=== PATIENT | female | born 1940 | race Caucasian/White ===

== ENCOUNTER 2016-10-09 15:19 | Inpatient (IN) | payer OTHER, MEDICARE ==
[~2016-10-09] VITALS: Ht 154.9 cm; Wt 110.7 kg
[~2016-10-09 15:19] MED LIST: ALBUTEROL 3 ML3 ML INH; ASPIR 8181 MG PO; ATORVASTATIN CA40 MG PO; AUGMENTIN 875 M1 TAB PO; CEFUROXIME AXE250 MG PO; CIPRO 500MG (E500 MG PO; CLARITIN10 MG PO; COUMADIN 2.5 M2.5 MG PO; COUMADIN 3 MG TA3 MG PO; DILAUDID2 MG PO; FLAG500 PO; FLOVENT0.11 MG/Ac INH; FUROSEMIDE20 MG PO; KLOR-CON M2020 MEQ PO; LEVOTHYROXIN0.088 M1 PO; LOVENOX 4040 MG/0.4 SC; METOPROLOL SUCC50 MG PO; MONTELUKAST SOD10 MG PO; PANTOPRAZOLE SO40 MG PO; PREDNISONE 10MG10 M1 PO; PREDNISONE 5 MG5 MG PO; PREDNISONE5 MG PO; SPIRIVA1 PUF INH; ULTRAM(MONOGRAP50 MG PO; VALSARTAN160 MG PO; VICODIN7.5-300 PO; WARFARIN SODIUM2 MG PO
--- NOTE | 2016-10-09 15:24 | NUR ---
PT STATES SHE HAS HAD INCREASES SOB FOR THE PAST FEW DAYS WORSE TODAY. PT DENIES COUGH 02 SAT 88% IN TRIAGE. PT TAKE BACK TO ROOM.
--- NOTE | 2016-10-09 15:30 | NUR ---
RECIEVED TO ROOM 9
--- NOTE | 2016-10-09 15:37 | ED DYSPNEA/ASTHMA COMPLAINT ---
History of Present Illness General Chief Complaint: Dyspnea (COPD, CHF, Other) Stated Complaint: SOB Source: patient, family, old records Exam Limitations: no limitations Vital Signs & Intake/Output Vital Signs & Intake/Output Vital Signs Date Time Temp Pulse Resp B/P B/P Pulse O2 O2 Flow FiO2 Mean Ox Delivery Rate 10/12 1211 93 Nasal 1.5L Cannula 10/12 1011 60 110/70 10/12 1011 60 110/70 10/12 0800 Nasal 2.0L Cannula 10/12 0753 60 14 110/70 92 Nasal 2.0L Cannula 10/12 0014 97.9 61 18 118/70 93 Nasal Cannula 10/12 0000 Nasal 2.0L Cannula 10/11 1945 92 Nasal 2.0L Cannula 10/11 1643 98.1 67 18 126/70 94 10/11 1600 95 Nasal 2.0L Cannula ED Intake and Output 10/12 0000 10/11 1200 Intake Total 1000 Output Total 2000 Balance -1000 Intake, Oral 1000 Number 0 Bowel Movements Output, Urine 1999 Allergies Coded Allergies: codeine (Severe, RESPIRATORY DISTRESS, HALLUCINATIONS 07/14/15) oxycodone (SHORTNESS OF BREATH 07/14/15) Iodinated Contrast- Oral and IV Dye (Iodinated Contrast Media - IV Dye) (NAUSEA, DIZZINESS 07/14/15) morphine (VOMITING 07/14/15) Uncoded Allergies: FRESH FROZEN PLASMA (UNKNOWN 07/14/15) Reconcile Medications Aspirin (Aspirin*) 81 MG TAB.CHEW 1 TAB PO DAILY CAD (Reported) Atorvastatin Calcium 40 MG TABLET 1 TAB PO DAILY HIGH CHOLESTEROL (Reported) Fluticasone Propionate (Flovent Hfa) 110 MCG/ACTUATION AER.W.ADAP 2 PUF INH BID COPD (Reported) Furosemide 20 MG TABLET 1 TAB PO DAILY CHF (Reported) Levothyroxine Sodium 88 MCG TABLET 1 TAB PO DAILY HYPOTHRYOIDISM (Reported) Metoprolol Succinate 50 MG TAB.ER.24H 1 TAB PO DAILY CAD (Reported) Montelukast Sodium (Singulair) 10 MG TABLET 1 TAB PO DAILY DAILY (Reported) Valsartan 160 MG TABLET 1 TAB PO DAILY HTN (Reported) Warfarin Sodium (Coumadin) 4 MG TABLET 1 TAB PO QMON BLOOD THINNER (Reported) Warfarin Sodium (Coumadin) 4 MG TABLET 1 TAB PO QFRI BLOOD THINNER (Reported) Warfarin Sodium (Coumadin) 3 MG TABLET 1 TAB PO SUN TUES THUR BLOOD THINNER ( Reported) Warfarin Sodium (Coumadin) 3 MG TABLET 1 TAB PO QSAT BLOOD THINNER (Reported) Warfarin Sodium 3 MG TABLET 1 TAB PO QWED BLOOD THINNER (Reported) Triage Note: PT STATES SHE HAS HAD INCREASES SOB FOR THE PAST FEW DAYS WORSE TODAY. PT DENIES COUGH 02 SAT 88% IN TRIAGE. PT TAKE BACK TO ROOM. Triage Nurses Notes Reviewed? yes Onset: Gradual Duration: day(s): (FEW) Timing: recent history Severity: mild, moderate Activities at Onset: activity Associated Symptoms: leg edema, dyspnea HPI: 75 year old female presents with progessive shortness of breath over the last 3 days with cough productive of clear sputum. Denies fever, chills or chest pain. States that she is having a hard time when doing adl's because she becomes short of breath. Uses inhalers at home for COPD but no nebulizaer treatments. Reports lower extremity edema. History of mitral valve repair after rupture many years ago on coumadin. She denies recent hospitalization or sick contacts. Past History Travel History Traveled to [place] past 21 day No Medical History Any Pertinent Medical History? 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 No Review of Systems Review of Systems Constitutional: Reports: malaise. Denies: chills, fever. EENTM: Denies: blurred vision, double vision. Respiratory: Reports: cough, short of breath, sputum production. Cardiovascular: Reports: peripheral edema. Denies: chest pain, palpitations, syncope. GI: Denies: abdominal pain, nausea, vomiting. Genitourinary: Denies: discharge, dysuria, frequency, hematuria. Musculoskeletal: Reports: no symptoms. Skin: Reports: no symptoms. Neurological/Psychological: Reports: no symptoms. Hematologic/Endocrine: Denies: bruising, bleeding, polyuria, polydipsia. Immunologic/Allergic: Denies: splenectomy. All Other Systems: Reviewed and Negative Physical Exam Physical Exam General Appearance: well developed/nourished, alert, awake, anxious, mild distress, moderate distress Head: normal appearance Eyes: Bilateral: normal appearance, PERRL, EOMI. Ears, Nose, Throat: normal pharynx, normal ENT inspection, hearing grossly normal Neck: normal inspection, supple, full range of motion Respiratory: decreased breath sounds, accessory muscle use, wheezing, respiratory distress Cardiovascular: regular rate/rhythm Peripheral Pulses: 2+ radial (R), 2+ radial (L) Gastrointestinal: soft, non-tender, obese Extremities: swelling (2+ BILATERAL) Neurologic/Psych: no motor/sensory deficits, awake, alert, oriented x 3 Skin: intact, normal color, warm/dry Core Measures ACS in differential dx? Yes ASA ordered for poss ACS? ON COUMADIN Severe Sepsis Present: No Septic Shock Present: No Progress Differential Diagnosis: AMI, CHF, COPD, pulmonary embolism Plan of Care: Orders Procedure Date/time Status PROTHROMBIN TIME 10/13 06 Active CBC WITHOUT DIFFERENTIAL 10/12 06 Complete BASIC ELECTROLYTES PLUS BUN&CR 10/12 0600 Complete House Staff 10/12 UNK Active Nursing Misc 10/12 UNK Active MAGNESIUM 10/11 0647 Complete OXYGEN 10/11 UNK Complete OXYGEN DAILY CHARGE 10/11 UNK Complete Lab Add-on Test 10/11 UNK Active GLYCOSYLATED HGB 10/10 0625 Complete OXYGEN SETUP CHG 10/10 UNK Complete INCENTIVE SPIROMETRY TRX CHG 10/10 UNK Complete AEROSOL CHG 10/10 UNK Complete OXYGEN 10/10 UNK Complete OXYGEN TRANSPORT 10/10 UNK Complete Current Medications Sig/Slade Start time Last Medication Dose Stop Time Status Admin Furosemide 40 MG DAILY 10/12 1000 AC (Lasix) Warfarin Sodium 1 MG COUMADIN 1700 ONE 10/11 1700 CAN (Coumadin) 10/11 1701 Loratadine 10 MG DAILY 10/11 1334 AC 10/12 (Claritin) 1011 Tiotropium [place] 1 PUF DAILY 10/11 1333 AC 10/12 (Spiriva) 1012 Atorvastatin Calcium 40 MG AT BEDTIME 10/10 2200 AC 10/11 (Lipitor) 210 Montelukast Sodium 10 MG AT BEDTIME 10/10 220 AC 10/11 (Singulair) 210 Docusate Sodium 100 MG DAILY NEEDED PRN 10/10 2030 AC 10/10 (Colace) 2247 Bisacodyl 5 MG DAILY 10/10 1824 AC 10/11 (Dulcolax) 1008 Aspirin 81 MG DAILY 10/10 1000 AC 10/12 (Aspirin) 1011 Losartan Potassium 50 MG DAILY 10/10 1000 AC 10/12 (Cozaar) 1011 Metoprolol Succinate 50 MG DAILY 10/10 1000 AC 10/12 (Toprol Xl) 1011 Albuterol Sulfate 3 ML Q4 HRS NEEDED PRN 10/10 0945 AC 10/10 (Proventil) 210 Levothyroxine Sodium 0.088 MG DAILY AC 10/10 0700 AC 10/12 (Synthroid) 0636 Budesonide/ 2 PUF BID 10/09 2199 AC 10/12 Formoterol Fumarate 1011 (Symbicort) Polyethylene Glycol 17 GM AT BEDTIME 10/09 2199 AC 10/11 (Miralax) 210 Senna/Docusate Sodium 1 TAB AT BEDTIME 10/09 2199 AC (Senokot S) Acetaminophen 650 MG Q6P PRN 10/09 2014 AC (Tylenol) Acetaminophen 1,000 MG DAILY PRN 10/09 2014 AC (Ofirmev) Laboratory Tests 10/12/16 0650: Anion Gap 8, Estimated GFR > 60, BUN/Creatinine Ratio 30.0 H, PT 26.7 H, INR 2.57 H, CBC w Diff NO MAN DIFF REQ, RBC 5.07, MCV 88.8, MCH 28.0, RDW 15.7 H, MPV 9.1, Gran % 58.7, Lymphocytes % 28.7, Monocytes % 9.9 H, Eosinophils % 2.1, Basophils % 0.6, Absolute Granulocytes 4.2, Absolute Lymphocytes 2.0, Absolute Monocytes 0.7 H, Absolute Eosinophils 0.2, Absolute Basophils 0, PUBS MCHC 31.5 L EKG, TELE MONITOR, CXR. LABS, TROPONIN. LASIX, DUONEB ORDERED. PATIENT STARTING TO DIURESE, STILL SOB WITH AMBULATION, O2 SAT'S IN HIGH 70'S WITH EXERTION. D/W DR BRODY ADMITTED TO TELEMETRY. (CHAS WICK,JOSE) Diagnostic Imaging: Viewed by Me: Radiology Read. Discussed w/RAD: Radiology Read. Initial ED EKG: NSR Rhythm Strip: normal sinus rhythm Comments: PATIENT: HENRI ORTEGA PRESENT AGE: 75 PATIENT ACCOUNT NO: [id number] : 41 LOCATION: [facility] ORDERING PHYSICIAN: JOSE DOHERTY MD SERVICE DATE: 10/09/169046 EXAM TYPE: RAD - XRY-PORTABLE CHEST XRAY EXAMINATION: XR PORTABLE CHEST CLINICAL INFORMATION: Cough, shortness of breath. COMPARISON: 05/14/2016 TECHNIQUE: Portable frontal view of the chest was obtained. FINDINGS: The patient is status post median sternotomy and cardiac valve replacement. The heart is mildly enlarged, stable. Patchy bilateral lower lobe airspace opacities. No pneumothorax. IMPRESSION: Stable cardiomegaly. Bilateral lower lobe airspace opacities may reflect a combination of atelectasis and pulmonary edema and/or small effusions, developing infiltrate is not excluded. DICTATED BY: MAYLIN WHEELER MD DATE/TIME DICTATED:10/09/161612 SENIOR NET ARCHITECT:RAMÓN DATE/TIME TRANSCRIBED:10/09/161612 CONFIDENTIAL, DO NOT COPY WITHOUT APPROPRIATE AUTHORIZATION. <Electronically signed in Other Vendor System> SIGNED BY: MAYLIN WHEELER MD 1620 Departure Departure Time of Disposition: 170 Disposition: STILL A PATIENT Condition: Stable Clinical Impression Primary Impression: Heart failure Secondary Impressions: COPD exacerbation Referrals: TAE BRODY MD (PCP/Family) Departure Forms: Customer Survey General Discharge Information Admission Note Spoke With: TAE BRODY MD Documentation of Exam: Documentation of any treatments & extenuating circumstances including Concerns Regarding Discharge (functional status, medication knowledge or non-compliance, living conditions, etc.) that warrant an admission rather than observation: [ MONITOR I/O, TRC/NEBS, IV SOLUMEDROL, PULMONARY ASSESSMENT DR BRODY, ] Critical Care Note Critical Care Note Critical Care Time: 30-74 min
--- NOTE | 2016-10-09 15:37 | NUR ---
O2 SATS 85% ON ROOM AIR. PLACED ON 4 LITERS OF OXYGEN AND SATS RADHA TO 93%. LUNGS CLEAR. PT REPORTS OCCASIONAL COUGH. ASSISTED INTO CHANGING INTO HOSP GOWN FOR EXAM
--- NOTE | 2016-10-09 16:20 | RADIOLOGY REPORT ---
EXAMINATION: XR PORTABLE CHEST CLINICAL INFORMATION: Cough, shortness of breath. COMPARISON: 05/14/2016 TECHNIQUE: Portable frontal view of the chest was obtained. FINDINGS: The patient is status post median sternotomy and cardiac valve replacement. The heart is mildly enlarged, stable. Patchy bilateral lower lobe airspace opacities. No pneumothorax. IMPRESSION: Stable cardiomegaly. Bilateral lower lobe airspace opacities may reflect a combination of atelectasis and pulmonary edema and/or small effusions, developing infiltrate is not excluded.
--- NOTE | 2016-10-09 16:24 | NUR ---
PT BLOOD SENT TO LAB SST,LAV,BLUE
[2016-10-09 16:33] LABS: ABSOLUTE BASOPHIL COUNT 0 /CUMM (0.0-0.2); ABSOLUTE EOSINOPHIL COUNT 0.1 /CUMM (0.0-0.7); ABSOLUTE GRANULOCYTE CT 4.9 /CUMM (1.4-6.5); ABSOLUTE LYMPH COUNT 1.5 /CUMM (1.2-3.4); ABSOLUTE MONOCYTE COUNT 0.7 /CUMM (0.10-0.60); BASOPHIL % 0.4 % (0.0-2.0); EOSINOPHIL % 1.9 % (0-5); HEMATOCRIT 40.8 % (37-47); MEAN CORPUSCULAR HGB 28.2 PG (27.0-31.0); MEAN CORPUSCULAR HGB CONC 32.3 G/DL (33.0-37.0); MEAN CORPUSCULAR VOLUME 87.5 FL (81.0-99.0); MEAN PLATELET VOLUME 8.7 FL (7.4-10.4); PLATELET COUNT 203 /CUMM (130-400); RBC DISTRIBUTION WIDTH 15.6 % (11.5-14.5); RED BLOOD CELL CT 4.67 /CUMM (4.20-5.40); WHITE BLOOD CELL COUNT 7.2 /CUMM (4.8-10.8)
--- NOTE | 2016-10-09 16:39 | NUR ---
PT GIVEN NEB TX, IV SOLUMEDROL AND IV LASIX. CALL LALA WITHIN REACH. PT PLANS TO AMBULATE TO BR TO VOID. SATS 93% ON 4L NC. NSR ON MONITOR
--- NOTE | 2016-10-09 17:00 | NUR ---
PT AMBULATED TO BATHROOM WITHOUT OXYGEN AND SATS DROPPED TO 78
--- NOTE | 2016-10-09 17:27 | NUR ---
PT UP TO COMMODE TO VOID
--- NOTE | 2016-10-09 17:36 | NUR ---
SATS ON 4L NC 95%
--- NOTE | 2016-10-09 18:29 | NUR ---
PT OFFERED DINNER AND REFUSED
--- NOTE | 2016-10-09 18:37 | History & Physical ---
RIZWAN WICK,JERRY 10/09/16 1836: General Information and HPI MD Statement: I have seen and personally examined HENRI ORTEGA and documented this H&P. The patient is a 75 year old F who presented with a patient stated chief complaint of []. Source of Information: patient Exam Limitations: no limitations History of Present Illness: Patient is a 50-year-old female with past medical history significant for hypertension hyperlipidemia, CAD, mitral valve replacement (on warfarin), hypothyroidism, CAD status post CABG presented to the ER with progressive worsening of shortness of breath, dry cough, leg swelling. Symptoms started 2 weeks ago, associated with 3 pillow orthopnea, increased leg swelling, limiting her daily activities. She does have some dry cough with occasional clear phlegm production. She used home oxygen briefly last year after an episode of pneumonia however she is not on home oxygen currently. She denies any sick contacts/recent travel. She does have some constipation and sinus problems at baseline. She denies any fevers, nausea, vomiting, diarrhea, wheezing, abdominal pain, chest pain. No recent changes in home medications She follows Tea Brody MD (PCP), Dr. Chino Jimenez (rollout manager) Allergies/Medications Allergies: Coded Allergies: codeine (Severe, RESPIRATORY DISTRESS, HALLUCINATIONS 07/14/15) oxycodone (SHORTNESS OF BREATH 07/14/15) Iodinated Contrast- Oral and IV Dye (Iodinated Contrast Media - IV Dye) (NAUSEA, DIZZINESS 07/14/15) morphine (VOMITING 07/14/15) Uncoded Allergies: FRESH FROZEN PLASMA (UNKNOWN 07/14/15) Home Med list Aspirin (Aspirin*) 81 MG TAB.CHEW 1 TAB PO DAILY CAD (Reported) Atorvastatin Calcium 40 MG TABLET 1 TAB PO DAILY HIGH CHOLESTEROL (Reported) Fluticasone Propionate (Flovent Hfa) 110 MCG/ACTUATION AER.W.ADAP 2 PUF INH BID COPD (Reported) Furosemide 20 MG TABLET 1 TAB PO DAILY CHF (Reported) Levothyroxine Sodium 88 MCG TABLET 1 TAB PO DAILY HYPOTHRYOIDISM (Reported) Metoprolol Succinate 50 MG TAB.ER.24H 1 TAB PO DAILY CAD (Reported) Montelukast Sodium (Singulair) 10 MG TABLET 1 TAB PO DAILY DAILY (Reported) Valsartan 160 MG TABLET 1 TAB PO DAILY HTN (Reported) Warfarin Sodium (Coumadin) 4 MG TABLET 1 TAB PO QMON BLOOD THINNER (Reported) Warfarin Sodium (Coumadin) 4 MG TABLET 1 TAB PO QFRI BLOOD THINNER (Reported) Warfarin Sodium (Coumadin) 3 MG TABLET 1 TAB PO SUN TUES THUR BLOOD THINNER ( Reported) Warfarin Sodium (Coumadin) 3 MG TABLET 1 TAB PO QSAT BLOOD THINNER (Reported) Warfarin Sodium 3 MG TABLET 1 TAB PO QWED BLOOD THINNER (Reported) Compliance With Home Meds: GOOD Past History Travel History Traveled to [place] past 21 day No Medical History Neurological: NONE EENT: NONE Cardiovascular: CAD, hypertension, hyperlipidemia, S/p Mechanical Mitral Valve Replacement OPEN HEART SURGERY Respiratory: COPD Gastrointestinal: GERD, lower GI bleed Hepatic: NONE Renal: NONE Musculoskeletal: NONE Psychiatric: NONE Endocrine: hypothyroidism Blood Disorders: NONE Cancer(s): NONE 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 Home Who Do You Live With? self Services at Home: None Primary Language: Eritrean Smoking Status: Never Smoked ETOH Use: occasional use Illicit Drug Use: denies illicit drug use Functional Ability ADLs Independent: dressing, eating, toileting, bathing. Ambulation: independent IADLs Independent: shopping, housework, finances, food prep, telephone, transportation , medication admin. Review of Systems Review of Systems Constitutional: Reports: see HPI. EENTM: Reports: no symptoms. Cardiovascular: Reports: edema, orthopena, peripheral edema. Denies: chest pain, palpitations. Respiratory: Reports: cough, short of breath, sputum production. Denies: hemoptysis, wheezing. GI: Reports: no symptoms. Genitourinary: Reports: no symptoms. Musculoskeletal: Reports: no symptoms. Skin: Reports: no symptoms. Exam & Diagnostic Data Last 24 Hrs of Vital Signs/I&O Vital Signs Date Time Temp Pulse Resp B/P B/P Pulse O2 O2 Flow FiO2 Mean Ox Delivery Rate 10/09 1952 97.4 69 20 135/64 93 Nasal 4.0L Cannula 10/09 1713 97.7 68 18 126/62 94 Nasal Cannula 10/09 1606 95 Nasal 4.0L Cannula 10/09 1539 Nasal 2.0L Cannula 10/09 1523 96.4 83 22 127/74 89 Room Air Intake & Output 10/09 1600 10/09 0800 10/09 0000 Intake Total Output Total Balance Patient 110.677 kg Weight Weight Reported by Patient Measurement Method Physical Exam General Appearance Alert, Oriented X3, Cooperative, No Acute Distress Skin No Rashes, No Breakdown HEENT Atraumatic, PERRLA, EOMI Neck Supple Cardiovascular Normal S1, Normal S2 Lungs Normal Air Movement, mild crackles at bases Abdomen Normal Bowel Sounds, Soft, No Tenderness Neurological Strength at 5/5 X4 Ext, Normal Tone, Sensation Intact Extremities No Clubbing, No Cyanosis, 3-4+ pitting edema Vascular Normal Pulses, Pulses Symmetrical Last 24 Hrs of Labs/Bertrand: Laboratory Tests 10/09/16 1623: Anion Gap 6, Estimated GFR > 60, BUN/Creatinine Ratio 25.0, Glucose 96, Calcium 8.6, Total Bilirubin 0.8, AST 27, ALT 39, Alkaline Phosphatase 72, Troponin I < 0.01, Wjg-U-Vcebygeafam Pept 723 H, Total Protein 6.3, Albumin 3.6, Globulin 2.7, Albumin/Globulin Ratio 1.3, PT 25.0 H, INR 2.48 H 10/09/16 1621: CBC w Diff NO MAN DIFF REQ, RBC 4.67, MCV 87.5, MCH 28.2, RDW 15.6 H, MPV 8.7, Gran % 68.0, Lymphocytes % 20.4 L, Monocytes % 9.3, Eosinophils % 1.9, Basophils % 0.4, Absolute Granulocytes 4.9, Absolute Lymphocytes 1.5, Absolute Monocytes 0.7 H, Absolute Eosinophils 0.1, Absolute Basophils 0, PUBS MCHC 32.3 L Diagnostic Data EKG Results normal sinus rhythm with heart rate of 72, GA 152, QTc 456 Assessment/Plan Assessment: Patient is a 75-year-old female with past medical history of systemic hypertension, hyperlipidemia, mitral valve replacement (2004 on warfarin), CAD status post CABG presented with progressively worsening dyspnea, dry cough, 3 pillow Orthopnea, leg swelling. Examination is significant for mild basilar crackles, 3-4+ pitting edema. Labs significant for proBNP 723, negative drops, INR 2.48. Chest imaging reveals bilateral lower lobe airspace opacities reflecting atelectasis/pulmonary edema. At this point although the differentials include right heart failure, atypical pneumonia. Last echocardiogram July 2014 shows mild left ventricular hypertrophy, EF > 55% , mild systolic over the right ventricular dilatation with normally functioning prosthetic mitral valve, right ventricular systolic pressure greater than 50 mmHg. Admitted to general medicine floor Acute diastolic heart failure * Currently heart rate and blood pressure under control, compliant with medications, previous pulmonary artery pressure greater than 50 mmHg * Started nursing with IV furosemide * Supplemental oxygen * Check echocardiogram * Cardio consult in a.m. * Strict ins and outs Mild COPD * Remote history of smoking * Continue to Duoneb Q8hrs, Symbicort * Continue loratadine, monterlucast, Spirivia * Supplemental oxygen History of mitral valve replacement on warfarin * Daily dosing INR goal of 2.5-3.5 * INR at admission is 2.48 CAD status post CABG * Continue aspirin 81 mg, atorvastatin 40 mg, metoprolol succinate 50 mg History of hypothyroidism * Continue levothyroxine home dose DVT prophylaxis * On warfarin CODE STATUS * Full code As Ranked By This Provider Problem List: 1. Mechanical heart valve present 2. GI BLEEDING 3. HTN (hypertension) 4. Hyperlipidemia 5. Right heart failure 6. Hypoxia Core Measures/Miscellaneous Acute Coronary Syndrome ACS Diagnosis: No Cerebrovascular Accident CVA/TIA Diagnosis: No Congestive Heart Failure CHF Diagnosis: No VTE (View Protocol) VTE Risk Factors: Age > 40 No [facility] VTE prophylaxis d/t: No contraindications No VTE Pharm Prophylaxis d/t: No contraindications VTE Diagnosis: No VTE Type: NONE VTE Confirmed by (Test): NONE (-year-old) Sepsis (View Protocol) Severe Sepsis Present: No Septic Shock Septic Shock Present: No Miscellaneous Documentation Attending Case Discussed With: TAE BRODY MD Primary Care Physician: TAE BRODY MD Patient sees these Specialists Dr. Delcid Level of Patient Care: General Medicine CRISTELA WICK,MARTIN 10/09/16 3557: Resident Review Statement Resident Statement: examined this patient, discussed with sports management intern, reviewed EMR data (avail) Other Findings: 75-year-old female with a past medical history of COPD, coronary artery disease, GERD, hyperlipidemia, hypertension, status post mechanical mitral valve replacement, hypothyroidism presented to the ED with shortness of breath that has been going on for the past few days but is progressively worsened. Vitals at the time of admission blood pressure 127/74, respiratory rate of 22, pulse 83, afebrile saturating 89% on room air, which was later switched to 94-95 % of nasal cannula 4 L. On physical exam, patient was alert and oriented not in any acute distress after declining in the bed. S1 and S2 audible without any murmurs, lungs examination showed occasional crackles, mild wheezing, surgical scar erma midchest, benign abdominal and neurological examination. Labs pertinent for normal white blood cell count of 7200, H&H of 13.2/40.8, normal MCV of 87.5 with a platelet count of 203,000. Serum chemistries revealed a sodium of 142, potassium of 4.1, bicarbonate of 29, anion gap of 6, BUN 20 with a creatinine of 0.8. LFTs unremarkable with an AST/ALT of 27/39, alkaline phosphatase of 72 with a troponin less than 0.01 proBNP of 743. Chest x-ray revealed stable cardiomegaly, bilateral lower leg. Opacities which may reflect a combination of atelectasis, pulmonary edema and/or small effusions with developing infiltrate cannot be excluded. EKG revealed sinus rhythm heart rate 72, QTC 456 Echocardiogram was done in July 2014 which showed left ventricular ejection fraction of greater than 55% with no obvious rotational wall motion abnormalities, mild left atrial dilatation, mechanical prosthetic valve. Right ventricular systolic pressure estimated at greater than 50 mmHg. In the ER she received a treatment of albuterol and ipratropium and was given 125 mg of IV Solu-Medrol with 40 mg of IV Lasix. Patient was admitted on general medicine floor for the management of following problems Acute on chronic diastolic heart failure -Most likely acute CHF exacerbation vs [place] vs non compliance with medications -No acute EKG ST changes and negative troponin less than 0.01. - Hemodynamically stable, 2+ve B/L Lowr extremity edema - CXR shows signs of fluid overload. - Admit to telemetry - Vitals q Shift - Monitor I/O - Daily weight - Cardio consult - Last Echo was done in 2014, EF 55%, Right ventricular systolic pressure estimated at greater than 50 mmHg. - Consider repeat ECHO - Continue Cozaar 50 mg - Give Furosemide 40mg IV BID - Continue Metoprolol 50 mg PO Daily - Check lipid panel in am. - ASA 81 mg Po daily. - Give dinner (Heart Healthy Diet) CABG and mitral valve replacement Dose Coumadin according to INR Keep INR between 2.5-3.5 as she has a metallic valve Patient is full code Patient is on Coumadin for DVT prophylaxis Patient is on heart healthy diet Patient is on pain management, only mild and moderate pain pathway because patient is allergic to morphine and oxycodone
--- NOTE | 2016-10-09 18:43 | Admission Certification ---
Admission Certification Certification Statement - As attending physician, I certify that at the time of - admission, based on clinical presentation, severity of - symptoms, need for further diagnostic testing and - therapeutic interventions, and risk of adverse outcomes - without in-hospital treatment, in my clinical assessment, - this patient requires an acute hospital stay for a minimum - of two nights or longer. I have also considered psychsocial - factors such as support system, advanced age, financial - issues, cognitive issues, and failed out-patient treatments, - past re-admission history, safety of patient, and lack of - compliance as applicable. Specific rationale supporting this admission is: heart failure
--- NOTE | 2016-10-09 19:01 | NUR ---
PT ASSIGNED TO ROOM 230 BED 2
--- NOTE | 2016-10-09 19:15 | PN- Att Addend ---
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 This has been slowly getting worse. Since she came into the emergency room she did receive more oxygen and one dose of Lasix and she's been diuresing and she feels much better. She has very mild cough. No wheezing. No history suggestive of significant COPD exacerbation. She has had previous history of mitral valve replacement now on anticoagulation. She has a mechanical mitral valve. She is followed by Dr. Chino Jimenez for cardiology [place]. Her other issues are noted above and has been well-controlled. She unfortunately does have several comorbid conditions and has been having frequent blood draws for her INR monitoring. Last echocardiogram done did show normal ejection fraction with increased left ventricular thickness with mild right ventricular dilation dictation with mechanical prosthetic valve normally functioning with pulmonary hypertension with right ventricular pressure more than 50. A previous spirometry has shown mild obstructive pulmonary physiology. She does have history of smoking quit in 2004. She also has a large. Umbilical hernia for which she has had a few surgeries with previous history of bowel obstruction but no abdominal pain and discomfort. Review of symptoms increasing pedal edema, increase in weight. No significant cough or sputum. Allergies Coded Allergies: codeine (Severe, RESPIRATORY DISTRESS, HALLUCINATIONS 07/14/15) oxycodone (SHORTNESS OF BREATH 07/14/15) Iodinated Contrast- Oral and IV Dye (Iodinated Contrast Media - IV Dye) (NAUSEA, DIZZINESS 07/14/15) morphine (VOMITING 07/14/15) Uncoded Allergies: FRESH FROZEN PLASMA (UNKNOWN 07/14/15) Reconcile Medications Albuterol Sulfate (Proventil) 2.5 MG/3 ML NEB 3 ML INH Q6P PRN SHORTNESS OF BREATH Aspirin (Ecotrin) 81 MG TABLET.DR 1 TAB PO DAILY HEART HEALTH (Reported) Atorvastatin Calcium (Lipitor) 40 MG TABLET 1 TAB PO QPM CHOLESTEROL ( Reported) Cefuroxime Axetil (Cefuroxime) 250 MG TAB 1 TAB PO BID pneumonia Fluticasone Propionate (Flovent) 0.11 MG/Actuation CATIA 2 PUFF INH DAILY COPD Furosemide 20 MG TABLET 1 TAB PO DAILY CHF (Reported) Levothyroxine Sodium 0.088 MG TAB 1 TAB PO DAILY AC THYROID (Reported) Loratadine (Claritin) 10 MG TAB 1 TAB PO DAILY ALLERGIES (Reported) Metoprolol Succinate 50 MG TAB.ER.24H 1 TAB PO DAILY HEART (Reported) Montelukast Sodium 10 MG TABLET 1 TAB PO DAILY LUNG FUNCTION (Reported) Pantoprazole Sodium 40 MG TABLET.DR 1 TAB PO DAILY AC GI (Reported) Potassium Chloride (Klor-Con M20) [address] 1 TAB PO 3XW SUPPLEMENT ( Reported) Prednisone 10 MG TAB 1 TAB PO AD COPD On Take 07/17-07/18 20 MG 07/19-07/20 10 MG ONCE COMPLETE, START THE 5MG TABS DIRECTED Prednisone 5 MG TAB 1 TAB PO AD COPD On Take 07/21-07/22 5 MG THIS COMPLETES YOUR PREDNISONE TAPER Tiotropium [place] (Spiriva) 1 PUF PUF 1 PUFF INH DAILY COPD Valsartan 160 MG TABLET 1 TAB PO DAILY BP (Reported) Warfarin Sodium (Coumadin) 3 MG TAB 1 TAB PO DAILY blood thinner (Reported) Triage Note: PT STATES SHE HAS HAD INCREASES SOB FOR THE PAST FEW DAYS WORSE TODAY. PT DENIES COUGH 02 SAT 88% IN TRIAGE. PT TAKE BACK TO ROOM. Triage Nurses Notes Reviewed? yes Onset: Gradual Duration: day(s): (FEW) Past History Travel History Traveled to [place] past 21 day No Medical History Any Pertinent Medical History? 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 History of MRSA: No History of VRE: No History of CDIFF: No Pneumonia Vaccine: 06/10/15 Influenza Vaccine: 06/03/15 Surgical History Surgical History: cholecystectomy, BOWEL OBSTRUCTION 3 ABD HERNIA REPAIRS Psychosocial History Who do you live with Family Services at Home None What is your primary language Citizen Of [place] Tobacco Use: Quit >30 days ago ETOH Use: occasional use Illicit Drug Use: denies illicit drug use Family History Family History, If Any: Relation not specified for: *No pertinent family history Vital Signs Date Time Temp Pulse Resp B/P B/P Pulse O2 O2 Flow FiO2 Mean Ox Delivery Rate 06/23 1713 97.7 68 18 126/62 94 Nasal Cannula 10/09 1606 95 Nasal 4.0L Cannula 10/09 1539 Nasal 2.0L Cannula 10/09 1523 96.4 83 22 127/74 89 Room Air Laboratory Tests 10/09/16 1623: Anion Gap 6, Estimated GFR > 60, BUN/Creatinine Ratio 25.0, Glucose 96, Calcium 8.6, Total Bilirubin 0.8, AST 27, ALT 39, Alkaline Phosphatase 72, Troponin I < 0.01, Lbu-Y-Ylsskboufwe Pept 723 H, Total Protein 6.3, Albumin 3.6, Globulin 2.7, Albumin/Globulin Ratio 1.3 10/09/16 1621: CBC w Diff NO MAN DIFF REQ, RBC 4.67, MCV 87.5, MCH 28.2, RDW 15.6 H, MPV 8.7, Gran % 68.0, Lymphocytes % 20.4 L, Monocytes % 9.3, Eosinophils % 1.9, Basophils % 0.4, Absolute Granulocytes 4.9, Absolute Lymphocytes 1.5, Absolute Monocytes 0.7 H, Absolute Eosinophils 0.1, Absolute Basophils 0, PUBS MCHC 32.3 L Orders Procedure Date/time Status Heart Healthy Diet 10/10 B Active Patient Data 10/09 1823 Active Code Status 10/09 1755 Active ED Holding Orders 10/09 1707 Active Admit to inpatient 10/09 1707 Active Vital Signs 10/09 1707 Active RT ED ORDERS 10/09 1549 Active Telemetry/Fitness And Wellness Director 10/09 1546 Active TROPONIN LEVEL 10/09 1546 Complete COMPREHENSIVE METABOLIC PANEL 10/09 1546 Complete CBC WITHOUT DIFFERENTIAL 10/09 1546 Complete B-TYPE NATRIURETIC PEP (BNP) 10/09 1546 Complete Intake & Output 10/09 1539 Active EKG 10/09 1537 Active On physical exam Vital signs reviewed as noted Slightly elevated JVD pupils reacting extra ocular movements intact neck supple no JVD Chest decreased breath sounds on both sides with crackles heard half way up No significant wheezing mild prolonged expiration next abdominal exam obese. Umbilical hernia 1+ edema noted bilaterally SIGNIFICANT DATA blood work reviewed. BUN/creatinine 0.8 and 20 potassium 4.1 her liver enzymes were pending troponin was normal last TSH was 3.4 free T4 was normal B12 was normal. BNP was 723. EKG did not reveal any significant abnormality chest x-ray showed cardiomegaly bilateral lower lobe airspaces opacities suggestive of atelectasis with small effusion probable pulmonary edema IMPRESSION This is a 74-year-old lady with history of hypertension, coronary artery disease with previous CABG and mitral valve replacement for a ruptured papillary muscle emergently done in 2004, now on anticoagulation with warfarin, hypothyroidism on appropriate supplementation, previous recurrent bowel obstruction with mesh surgery for paraumbilical hernia, Now comes into the emergency with shortness of breath increased weight pedal edema highly suggestive of acute diastolic heart failure. She is already doing much better after diuresis.chest x-ray suggestive of mild pulmonary edema. Her BNP slightly elevated. No troponin elevation. Issues include * Acute diastolic heart failure with mild pulmonary edema which shortness of breath improving after Lasix * Coronary artery disease with previous CABG and mitral valve replacement with a metallic valve for Ruptured papillary muscle in 2004 with previous echoes suggestive of normal ejection fraction with diastolic heart. Patient is on appropriate anticoagulation with INR now is 3.46. No clinical evidence of acute coronary syndrome * Morbid obesity with signs and symptoms suggestive of upper airway resistance syndrome patient is not keen on sleep study * Significant pulmonary hypertension related to previous mitral valve disease with probable diastolic heart disease * Mild asthmatic bronchitis with mild COPD with previous history of smoking up until 2004 with no clinical evidence suggestive of significant COPD exacerbation * Hypothyroidism on appropriate supplementation * GERD on appropriate medication * Hyperlipidemia, hypertension, allergic rhinitis relatively stable RECOMMENDATION Continue intravenous Lasix 40 every 12 Keep potassium more than 4 Discontinue further steroids and antibiotics [id number] nebulizer therapy with DuoNeb every 8 hours Continue outpatient medications Continue warfarin keep INR between 2.5-3.5 as she has a metallic valve Start Symbicort 2 puffs twice a day and switch her to Flovent prior to discharge Continue loratadine and montelukast Please ask cardiology evaluation tomorrow Echocardiogram Continue Spiriva Continue her outpatient blood pressure medications If she were to start wheezing and has significant bronchospasm then prednisone 40 mg can be resumed Wean down oxygen
[2016-10-09] MEDS ORDERED: LEVOTHYROXINE88 MCG PO (19:28)
[2016-10-09] MEDS ORDERED: FLOVENT HFA12 G1 INH (19:28)
[2016-10-09] MEDS ORDERED: VALSARTAN160 M1 PO (19:29)
[2016-10-09] MEDS ORDERED: FUROSEMIDE20 M1 PO (19:29)
[2016-10-09] MEDS ORDERED: METOPROLOL SUCC50 M2 PO (19:29)
[2016-10-09] MEDS ORDERED: MONTELUKAST SOD10 M1 PO (19:29)
[2016-10-09] MEDS ORDERED: ATORVASTATIN CA40 M1 PO (19:30)
[2016-10-09] MEDS ORDERED: ASPIRIN81 M4 PO (19:30)
[2016-10-09] MEDS ORDERED: SINGULAIR10 M1 PO (19:31)
[2016-10-09] MEDS ORDERED: COUMADIN4 M1 PO ×2 (19:34→19:35)
[2016-10-09] MEDS ORDERED: COUMADIN3 M1 PO ×2 (19:36→19:38)
[2016-10-09] MEDS ORDERED: COUMADIN1 M1 PO (19:37)
[2016-10-09] MEDS ORDERED: WARFARIN SODIUM3 M1 PO (19:40)
--- NOTE | 2016-10-09 19:52 | NUR ---
PT RESTING COMFORTABLY. FEELS BETTER THEN SHE DID FORESTER AIDE
--- NOTE | 2016-10-09 20:20 | NUR ---
PT ASSIGNED TO ROOM 180 BED 1
--- NOTE | 2016-10-09 20:52 | NUR ---
REPORT CALLED TO CHARACTER ACTRESSNYASIA PAULA
[2016-10-09 21:57] VITALS: BP 148/78
[2016-10-09 22:42] LABS: PT 24.6 SEC (9.4-12.5)
--- NOTE | 2016-10-10 06:12 | PN- Housestaff ---
See Addendum Subjective Follow-up For: - Acute CHF exacerbation - History of mitral valve replacement on warfarin - CAD status post CABG - History of hypothyroidism Complaints: no complaints Tele-Events Since Last Visit: Sinus rythm - sinus brodie. No overnight events. Subjective: Patient seen and examined at bedside. She states her breathing is much better. Denies chest pain, palpitations, and states thatteh swelling in her lwoer extremities has gone down considerably well. Review of Systems Constitutional: Denies: chills, fever, malaise, weakness. EENTM: Denies: visual changes. Cardiovascular: Denies: chest pain, orthopena, palpitations, peripheral edema. Respiratory: Reports: cough. Denies: orthopnea, stridor, wheezing. Gastrointestinal: Denies: abdominal pain, nausea, vomiting. Genitourinary: Reports: no symptoms. Musculoskeletal: Reports: no symptoms. Neurological/Psychological: Denies: headache, numbness, tingling, tremors. Objective Last 24 Hrs of Vital Signs/I&O Vital Signs Date Time Temp Pulse Resp B/P B/P Pulse O2 O2 Flow FiO2 Mean Ox Delivery Rate 10/09 2157 97.5 69 18 148/78 98 Nasal 4.0L Cannula 10/09 2148 96 Nasal 4.0L Cannula 10/09 2133 70 18 154/71 96 Nasal 4.0L Cannula 10/09 1953 97.4 69 20 135/64 93 Nasal 4.0L Cannula 10/09 1713 97.7 68 18 126/62 94 Nasal Cannula 10/09 1606 95 Nasal 4.0L Cannula 10/09 1539 Nasal 2.0L Cannula 10/09 1523 96.4 83 22 127/74 89 Room Air Intake & Output 10/10 0800 10/10 0000 10/09 1600 Intake Total Output Total Balance Patient 244 lb 244 lb Weight Weight Reported by Patient Reported by Patient Measurement Method Physical Exam General Appearance: Alert, Oriented X3, Cooperative, No Acute Distress HEENT: Atraumatic, PERRLA, EOMI, Mucous Membr. moist/pink Neck: Supple, No JVD, No thryomegaly, +2 Carotid Pulse wo Bruit, No LAD Cardiovascular: Regular Rate, Normal S1, Normal S2, No Murmurs Lungs: mild basilar crackles Abdomen: Normal Bowel Sounds, Soft, No Tenderness Neurological: Normal Gait, Normal Speech, Strength at 5/5 X4 Ext, Normal Tone, Sensation Intact, Cranial Nerves 3-12 NL, Reflexes 2+ Extremities: No Clubbing, No Cyanosis, Normal Pulses, No Tenderness/Swelling, trace b/l edema Vascular: Normal Pulses, Pulses Symmetrical Current Medications: Current Medications Sig/Slade Start time Last Medication Dose Route Stop Time Status Admin Acetaminophen 650 MG Q6P PRN 10/09 2014 AC PO Acetaminophen 1,000 MG DAILY PRN 10/09 2014 AC IV Albuterol Sulfate 3 ML Q8 10/09 2199 AC INH Albuterol Sulfate 3 ML ONCE ONE 10/09 1600 DC 10/09 INH 10/09 1601 1606 Aspirin 81 MG DAILY 10/10 1000 AC PO Atorvastatin Calcium 40 MG DAILY 10/10 1955 AC 10/09 PO 222 Budesonide/ 2 PUF BID 10/09 2199 AC Formoterol Fumarate INH Furosemide 40 MG 7:30 AM, & 4:30 PM 10/10 0730 AC IV Furosemide 0 .STK-MED ONE 10/09 1640 DC IV Furosemide 40 MG ONCE ONE 10/09 1630 DC 10/09 IV 10/09 1631 1639 Ipratropium Epps 2.5 ML Q8 10/09 2199 AC INH Ipratropium Epps 2.5 ML ONCE ONE 10/09 1600 DC 10/09 INH 10/09 1601 1605 Levothyroxine Sodium 0.088 MG DAILY AC 10/10 0700 AC PO Losartan Potassium 50 MG DAILY 10/10 1000 AC PO Methylprednisolone 0 .STK-MED ONE 10/09 1619 DC .ROUTE Methylprednisolone 125 MG ONCE ONE 10/09 1615 DC 10/09 IV 10/09 1616 1615 Metoprolol Succinate 50 MG DAILY 10/10 1000 AC PO Montelukast Sodium 10 MG DAILY 10/10 1955 AC PO Polyethylene Glycol 17 GM AT BEDTIME 10/09 2199 AC PO Senna/Docusate Sodium 1 TAB AT BEDTIME 10/09 2199 AC PO Warfarin Sodium 4 MG COUMADIN 1700 ONE 10/09 2000 DC 10/09 PO 10/09 Last 24 Hrs of Lab/Bertrand Results Last 24 Hrs of Labs/Mics: Laboratory Tests 10/09/162219: Troponin I 0.02, PT 24.6 H, INR 2.36 H 10/09/16 162: Anion Gap 6, Estimated GFR > 60, BUN/Creatinine Ratio 25.0, Glucose 96, Calcium 8.6, Total Bilirubin 0.8, AST 27, ALT 39, Alkaline Phosphatase 72, Troponin I < 0.01, Hsv-K-Anlamauotgr Pept 723 H, Total Protein 6.3, Albumin 3.6, Globulin 2.7, Albumin/Globulin Ratio 1.3, PT 25.0 H, INR 2.48 H 10/09/16 1621: CBC w Diff NO MAN DIFF REQ, RBC 4.67, MCV 87.5, MCH 28.2, RDW 15.6 H, MPV 8.7, Gran % 68.0, Lymphocytes % 20.4 L, Monocytes % 9.3, Eosinophils % 1.9, Basophils % 0.4, Absolute Granulocytes 4.9, Absolute Lymphocytes 1.5, Absolute Monocytes 0.7 H, Absolute Eosinophils 0.1, Absolute Basophils 0, PUBS MCHC 32.3 L Orders Radiology Findings: SERVICE DATE: 10/09/16 EXAM TYPE: RAD - XRY-PORTABLE CHEST XRAY FINDINGS: The patient is status post median sternotomy and cardiac valve replacement. The heart is mildly enlarged, stable. Patchy bilateral lower lobe airspace opacities. No pneumothorax. IMPRESSION: Stable cardiomegaly. Bilateral lower lobe airspace opacities may reflect a combination of atelectasis and pulmonary edema and/or small effusions, developing infiltrate is not excluded. Assessment/Plan Assessment: 50-year-old female with past medical history significant for hypertension hyperlipidemia, CAD, mitral valve replacement (on warfarin), hypothyroidism, CAD status post CABG presented to the ER with progressive worsening of shortness of breath, dry cough, leg swelling. Vitals at the time of admission blood pressure 127/74, respiratory rate of 22, pulse 83, afebrile saturating 89% on room air, which was later switched to 94-95 % of nasal cannula 4 L. On physical exam, patient was alert and oriented not in any acute distress after declining in the bed. S1 and S2 audible without any murmurs, lungs examination showed occasional crackles, mild wheezing, surgical scar erma midchest, benign abdominal and neurological examination. Labs pertinent for normal white blood cell count of 7200, H&H of 13.2/40.8, normal MCV of 87.5 with a platelet count of 203,000. Serum chemistries revealed a sodium of 142, potassium of 4.1, bicarbonate of 29, anion gap of 6, BUN 20 with a creatinine of 0.8. LFTs unremarkable with an AST/ALT of 27/39, alkaline phosphatase of 72 with a troponin less than 0.01 proBNP of 743. Chest x-ray revealed stable cardiomegaly, bilateral lower leg. Opacities which may reflect a combination of atelectasis, pulmonary edema and/or small effusions with developing infiltrate cannot be excluded. EKG revealed sinus rhythm heart rate 72, QTC 456 Echocardiogram was done in July 2014 which showed left ventricular ejection fraction of greater than 55% with no obvious rotational wall motion abnormalities, mild left atrial dilatation, mechanical prosthetic valve. Right ventricular systolic pressure estimated at greater than 50 mmHg. In the ER she received a treatment of albuterol and ipratropium and was given 125 mg of IV Solu-Medrol with 40 mg of IV Lasix. Patient was admitted on general medicine floor for the management of following problems: #Acute CHF exacerbation - Continue to provide supplemental oxygen to maintain sats > 92% - Diurese with Lasix 40mg BID IV - F/U echocardiogram - Cardio consult in a.m. - Strict ins and outs # Mild COPD - Remote history of smoking - Continue to Duoneb Q8hrs, Symbicort - Continue loratadine, monterlucast, Spirivia - If wheezing woersens will start on IV solumedrol. # History of mitral valve replacement on warfarin - Daily dosing INR goal of 2.5-3.5 - Labs from this morning are pending. Dose Coumadin accordingly. # CAD status post CABG - Continue aspirin 81 mg, atorvastatin 40 mg, metoprolol succinate 50 mg # History of hypothyroidism - Continue levothyroxine home dose DVT prophylaxis - On warfarin CODE STATUS - Full code Problem List: 1. CHF (congestive heart failure) Pain Ratin Pain Location: n/a Pain Goal: Remain pain free Pain Plan: Tylenol 650mg PO Q6 PRN Ofirmev 1000mg IV PRN Tomorrow's Labs & Rationales: BEP and INR: monitor Cr and INR to dose coumadin DVT/Prophylaxis: mechanical, pharmacological
[2016-10-10 08:19] LABS: ABSOLUTE BASOPHIL COUNT 0 /CUMM (0.0-0.2); ABSOLUTE EOSINOPHIL COUNT 0 /CUMM (0.0-0.7); ABSOLUTE GRANULOCYTE CT 7.2 /CUMM (1.4-6.5); ABSOLUTE LYMPH COUNT 1.1 /CUMM (1.2-3.4); ABSOLUTE MONOCYTE COUNT 0.3 /CUMM (0.10-0.60); BASOPHIL % 0.2 % (0.0-2.0); EOSINOPHIL % 0 % (0-5); HEMATOCRIT 42.8 % (37-47); MEAN CORPUSCULAR HGB 28.3 PG (27.0-31.0); MEAN CORPUSCULAR HGB CONC 31.9 G/DL (33.0-37.0); MEAN CORPUSCULAR VOLUME 88.9 FL (81.0-99.0); MEAN PLATELET VOLUME 9.2 FL (7.4-10.4); PLATELET COUNT 203 /CUMM (130-400); RBC DISTRIBUTION WIDTH 15.8 % (11.5-14.5); RED BLOOD CELL CT 4.82 /CUMM (4.20-5.40); WHITE BLOOD CELL COUNT 8.6 /CUMM (4.8-10.8)
[2016-10-10 08:34] VITALS: BP 120/70
[2016-10-10 09:46] LABS: GRANULOCYTE % 83.8 % (42.2-75.2)
[2016-10-10 10:17] VITALS: BP 126/60
--- NOTE | 2016-10-10 14:17 | PN- Pulmonary ---
Subjective HPI/Critical Care Issues: The patient is awake and alert. She reports feeling markedly improved. She has less shortness of breath. She has a minimal cough and is nonproductive sputum. She denies chest congestion, fever or chills. Overall she feels better and denies any new complaints today. Objective Current Medications: Current Medications Sig/Slade Start time Last Medication Dose Route Stop Time Status Admin Acetaminophen 650 MG Q6P PRN 10/09 2014 AC PO Acetaminophen 1,000 MG DAILY PRN 10/09 2014 AC IV Albuterol Sulfate 3 ML Q4 HRS NEEDED PRN 10/10 0945 AC INH Albuterol Sulfate 3 ML Q8 10/09 2199 DC INH Albuterol Sulfate 3 ML ONCE ONE 10/09 1600 DC 10/09 INH 10/09 1601 1606 Aspirin 81 MG DAILY 10/10 1000 AC 10/10 PO 1009 Atorvastatin Calcium 40 MG AT BEDTIME 10/10 2199 AC PO Atorvastatin Calcium 40 MG DAILY 10/09 1956 DC 10/09 PO 2225 Budesonide/ 2 PUF BID 10/09 2199 AC 10/10 Formoterol Fumarate INH 1024 Furosemide 40 MG 7:30 AM, & 4:30 PM 10/10 0730 AC 10/10 IV 0623 Furosemide 0 .STK-MED ONE 10/09 1640 DC IV Furosemide 40 MG ONCE ONE 10/09 1630 DC 10/09 IV 10/09 1631 1639 Ipratropium [place] 2.5 ML Q8 10/09 2199 DC INH Ipratropium [place] 2.5 ML ONCE ONE 10/09 1600 DC 10/09 INH 10/09 1601 1605 Levothyroxine Sodium 0.088 MG DAILY AC 10/10 0700 AC 10/10 PO 0621 Losartan Potassium 50 MG DAILY 10/10 1000 AC 10/10 PO 1010 Methylprednisolone 0 .STK-MED ONE 10/09 1619 DC .ROUTE Methylprednisolone 125 MG ONCE ONE 10/09 1615 DC 10/09 IV 10/09 1616 1615 Metoprolol Succinate 50 MG DAILY 10/10 1000 AC 10/10 PO 1011 Montelukast Sodium 10 MG AT BEDTIME 10/10 2199 AC PO Montelukast Sodium 10 MG DAILY 10/09 1956 DC PO Polyethylene Glycol 17 GM AT BEDTIME 10/09 2199 AC PO Senna/Docusate Sodium 1 TAB AT BEDTIME 06/23 2200 AC PO Warfarin Sodium 5 MG COUMADIN 1700 ONE 10/10 1700 AC PO 10/10 1701 Warfarin Sodium 4 MG COUMADIN 1700 10/09 DC 10/09 PO 10/09 Vital Signs & I&O Last 24 Hrs of Vitals and I&O: Vital Signs Date Time Temp Pulse Resp B/P B/P Pulse O2 O2 Flow FiO2 Mean Ox Delivery Rate 10/10 1017 70 126/60 94 Nasal 3.0L Cannula 10/10 0923 Nasal 4.0L Cannula 10/10 0834 98.3 72 20 120/70 96 Nasal 4.0L Cannula 10/10 0800 Nasal Cannula 10/09 2157 97.5 69 18 148/78 98 Nasal 4.0L Cannula 10/09 2148 96 Nasal 4.0L Cannula 10/09 2133 70 18 154/71 96 Nasal 4.0L Cannula 10/09 1953 97.4 69 20 135/64 93 Nasal 4.0L Cannula 10/09 1713 97.7 68 18 126/62 94 Nasal Cannula 10/09 1606 95 Nasal 4.0L Cannula 10/09 1539 Nasal 2.0L Cannula 10/09 1523 96.4 83 22 127/74 89 Room Air Intake & Output 10/10 1600 10/10 0800 10/10 0000 Intake Total 560 100 Output Total Balance 560 100 Intake, Oral 560 100 Patient 244 lb Weight Weight Reported by Patient Measurement Method Exam General Appearance: no apparent distress, alert, anxious, comfortable Head: atraumatic, normal appearance Neck: supple Respiratory: quiet respiration, lungs clear, decreased breath sounds Cardiovascular: S1 and S2 heard, heart sounds are distant Abdomen: normal bowel sounds, soft, non-tender Extremities: no edema Skin: intact, normal color, warm/dry Results Last 24 Hrs of Lab Results: Laboratory Tests 10/10/16 0625: Anion Gap 9, Estimated GFR > 60, BUN/Creatinine Ratio 25.7 H, Triglycerides 71, Cholesterol 141, LDL Cholesterol, Calc 68, HDL Cholesterol 59, Cholesterol/HDL Ratio 2, PT 24.0 H, INR 2.30 H, CBC w Diff NO MAN DIFF REQ, RBC 4.82, MCV 88.9 , MCH 28.3, RDW 15.8 H, MPV 9.2, Gran % 83.8 H, Lymphocytes % 13.0 L, Monocytes % 3.0, Eosinophils % 0, Basophils % 0.2, Absolute Granulocytes 7.2 H, Absolute Lymphocytes 1.1 L, Absolute Monocytes 0.3, Absolute Eosinophils 0, Absolute Basophils 0, PUBS MCHC 31.9 L 10/09/16 2220: Troponin I 0.02, PT 24.6 H, INR 2.36 H 10/09/16 1623: Anion Gap 6, Estimated GFR > 60, BUN/Creatinine Ratio 25.0, Glucose 96, Calcium 8.6, Total Bilirubin 0.8, AST 27, ALT 39, Alkaline Phosphatase 72, Troponin I < 0.01, Mqc-D-Wbjqkhhnzov Pept 723 H, Total Protein 6.3, Albumin 3.6, Globulin 2.7, Albumin/Globulin Ratio 1.3, PT 25.0 H, INR 2.48 H 10/09/16 1621: CBC w Diff NO MAN DIFF REQ, RBC 4.67, MCV 87.5, MCH 28.2, RDW 15.6 H, MPV 8.7, Gran % 68.0, Lymphocytes % 20.4 L, Monocytes % 9.3, Eosinophils % 1.9, Basophils % 0.4, Absolute Granulocytes 4.9, Absolute Lymphocytes 1.5, Absolute Monocytes 0.7 H, Absolute Eosinophils 0.1, Absolute Basophils 0, PUBS MCHC 32.3 L Impression/Plan Impression/Plan Impression/Plan: 1. Acute diastolic heart failure with pulmonary edema, improved shortness of breath following diuresis. 2. 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 3. Morbid obesity. 4. Significant pulmonary hypertension related to previous valvular heart disorder. 5. Asthmatic bronchitis with mild COPD and history of smoking up until 2004, without evidence of acute exacerbation of COPD. 6. GERD. 7. Hypothyroidism. Recommendations: * Continue to follow cardiology recommendations. * Will follow up ECHO results. * Continue negative fluid balance/IV diuresis. * Monitor electrolytes, keep potassium greater than 4. * Continue nebs/TRC. * Continue outpatient medications. * Coumadin for INR between 2.5 and 3.5 for metallic valve therapy. * Symbicort 160/4.5, 2 puffs twice daily. Continue Spiriva 1 inhalation daily. * Continue loratadine and montelukast. * Wean oxygen down to off if able. * Continue all supportive care.
--- NOTE | 2016-10-10 16:39 | NUR ---
PT REQUESTING COLACE. SENNA AND MIRALAX CURRENTLY ORDERED. CONTACT REPRESENTATIVE YVON NOTIFIED. PENDING POSSIBLE NEW ORDERS. WILL CONT TO MONITOR.
[2016-10-10 17:06] VITALS: BP 120/62
[2016-10-11 01:28] VITALS: BP 98/60
[2016-10-11 08:04] VITALS: BP 130/72
--- NOTE | 2016-10-11 09:13 | PN- Housestaff ---
Subjective Follow-up For: CHF exacerbation Complaints: no complaints Tele-Events Since Last Visit: Sinus bradycardia, sinus rhythm, heart rate ranging from 59-66, no overnight event. Subjective: Patient followed up by me today. She is resting comfortably in her recliner, and using extra oxygen at 2 L/m via nasal cannula. She does not have any complaints, and feels that she is getting better. Review of Systems Constitutional: Reports: no symptoms. Objective Last 24 Hrs of Vital Signs/I&O Vital Signs Date Time Temp Pulse Resp B/P B/P Pulse O2 O2 Flow FiO2 Mean Ox Delivery Rate 10/11 1945 92 Nasal 2.0L Cannula 10/11 1643 98.1 67 18 126/70 94 10/11 1600 95 Nasal 2.0L Cannula 10/11 0804 97.4 68 20 130/72 94 Nasal 2.0L Cannula 10/11 0800 Nasal 2.0L Cannula 10/11 0128 97.5 60 20 98/60 93 Nasal 3.0L Cannula 10/11 0000 Nasal 2.0L Cannula Intake & Output 10/11 1600 10/11 0800 10/11 0000 Intake Total 600 600 Output Total 800 Balance -200 600 Intake, Oral 600 600 Output, Urine 800 Physical Exam General Appearance: Alert, Oriented X3, Cooperative, No Acute Distress Other Physical Findings: Patient is wheezy b/l but is otherwise clinically stable, still using oxygen via nasal cannula, has chronic bilateral pitting edema with varicosities of the vein b/l. Current Medications: Current Medications Sig/Slade Start time Last Medication Dose Route Stop Time Status Admin Acetaminophen 650 MG Q6P PRN 10/09 2014 AC PO Acetaminophen 1,000 MG DAILY PRN 10/09 2014 AC IV Albuterol Sulfate 3 ML Q4 HRS NEEDED PRN 10/10 0945 AC 10/10 INH 2106 Aspirin 81 MG DAILY 10/10 1000 AC 10/11 PO 1007 Atorvastatin Calcium 40 MG AT BEDTIME 10/10 2199 AC 10/11 PO 210 Bisacodyl 5 MG DAILY 10/10 1824 AC 10/11 PO 1008 Budesonide/ 2 PUF BID 10/09 2199 AC 10/11 Formoterol Fumarate INH 210 Docusate Sodium 100 MG DAILY NEEDED PRN 10/10 2030 AC 10/10 PO 2247 Furosemide 40 MG 7:30 AM, & 4:30 PM 10/10 0730 AC 10/11 IV 1630 Levothyroxine Sodium 0.088 MG DAILY AC 10/10 0700 AC 10/11 PO 0646 Loratadine 10 MG DAILY 10/11 1334 AC 10/11 PO 1429 Losartan Potassium 50 MG DAILY 10/10 1000 AC 10/11 PO 1008 Metoprolol Succinate 50 MG DAILY 10/10 1000 AC 10/11 PO 1008 Montelukast Sodium 10 MG AT BEDTIME 10/10 2200 AC 10/11 PO 2106 Polyethylene Glycol 17 GM AT BEDTIME 10/09 2200 AC 10/11 PO 2106 Potassium Chloride 40 MEQ ONCE ONE 10/11 1345 DC 10/11 PO 10/11 1346 1429 Senna/Docusate Sodium 1 TAB AT BEDTIME 10/09 220 AC PO Tiotropium [place] 1 PUF DAILY 10/11 1333 AC 10/11 INH 1428 Warfarin Sodium 2 MG COUMADIN 1700 ONE 10/11 1730 DC 10/11 PO 10/11 1731 1835 Warfarin Sodium 1 MG COUMADIN 1700 ONE 10/11 1700 CAN PO 10/11 1701 Last 24 Hrs of Lab/Bertrand Results Last 24 Hrs of Labs/Mics: Laboratory Tests 10/11/16 0647: Anion Gap 4 L, Estimated GFR > 60, BUN/Creatinine Ratio 30.0 H, Magnesium 2.1, PT 37.0 H, INR 3.57 H Assessment/Plan Assessment: 50-year-old female with past medical history significant for hypertension hyperlipidemia, CAD, mitral valve replacement (on warfarin), hypothyroidism, CAD status post CABG presented to the ER with progressive worsening of shortness of breath, dry cough, leg swelling. In the ER she received a treatment of albuterol and ipratropium and was given 125 mg of IV Solu-Medrol with 40 mg of IV Lasix. Patient was admitted on telemetry floor for the management of following problems : #Acute CHF exacerbation - Continue to provide supplemental oxygen to maintain sats > 92% - continue to diurese with Lasix 40mg BID IV as the patient is still wheezy - F/U echocardiogram - Following Cardio recs - Strict ins and outs # Mild COPD - Remote history of smoking - Continue to Duoneb Q8hrs, Symbicort - Continue loratadine, monterlucast, Spirivia # History of mitral valve replacement on warfarin - Daily dosing INR goal of 2.5-3.5 - Labs from this morning are pending. Dose Coumadin accordingly. # CAD status post CABG - Continue aspirin 81 mg, atorvastatin 40 mg, metoprolol succinate 50 mg # History of hypothyroidism - Continue levothyroxine home dose DVT prophylaxis - On warfarin, dosed 2 mg today INR 3.57 (upper limit of target is 3.5) CODE STATUS - Full code Problem List: 1. CHF (congestive heart failure) 2. Mechanical heart valve present 3. S/P heart valve replacement with mechanical valve Pain Ratin Pain Location: - Pain Goal: Pain 4 or less Pain Plan: prn Tomorrow's Labs & Rationales: CBC, BEP, INR
--- NOTE | 2016-10-11 11:05 | PN- Pulmonary ---
Subjective HPI/Critical Care Issues: The patient is awake and alert. She reports feeling improved however she is not a back to her baseline. She continues to have exertional dyspnea. She denies any chest pain, fever, chills or abdominal pain. She has had some constipation but has received medication for this. There were no overnight events reported. Objective Current Medications: Current Medications Sig/Slade Start time Last Medication Dose Route Stop Time Status Admin Acetaminophen 650 MG Q6P PRN 10/09 2014 AC PO Acetaminophen 1,000 MG DAILY PRN 10/09 2014 AC IV Albuterol Sulfate 3 ML Q4 HRS NEEDED PRN 10/10 0945 AC 10/10 INH 2106 Aspirin 81 MG DAILY 10/10 1000 AC 10/11 PO 1007 Atorvastatin Calcium 40 MG AT BEDTIME 10/10 2200 AC 10/10 PO 2028 Bisacodyl 5 MG DAILY 10/10 1824 AC 10/11 PO 1008 Budesonide/ 2 PUF BID 10/10 2199 CAN Formoterol Fumarate INH Budesonide/ 2 PUF BID 10/09 2200 AC 10/11 Formoterol Fumarate INH 1008 Docusate Sodium 100 MG DAILY NEEDED PRN 10/10 2030 AC 10/10 PO 2247 Furosemide 40 MG 7:30 AM, & 4:30 PM 10/10 0730 AC 10/11 IV 0814 Levothyroxine Sodium 0.088 MG DAILY AC 10/10 0700 AC 10/11 PO 0646 Losartan Potassium 50 MG DAILY 10/10 1000 AC 10/11 PO 1008 Metoprolol Succinate 50 MG DAILY 10/10 1000 AC 10/11 PO 1008 Montelukast Sodium 10 MG AT BEDTIME 10/10 2200 AC 10/10 PO 2028 Polyethylene Glycol 17 GM AT BEDTIME 10/09 2200 AC PO Senna/Docusate Sodium 1 TAB AT BEDTIME 10/09 2200 AC PO Warfarin Sodium 5 MG COUMADIN 1700 ONE 10/10 1700 DC PO 10/10 1701 Warfarin Sodium 3 MG COUMADIN 1700 ONE 10/10 1700 DC 10/10 PO 10/10 1701 1619 Warfarin Sodium 3 MG .STK-MED ONE 10/10 1611 DC PO 10/10 1612 Vital Signs & I&O Last 24 Hrs of Vitals and I&O: Vital Signs Date Time Temp Pulse Resp B/P B/P Pulse O2 O2 Flow FiO2 Mean Ox Delivery Rate 10/11 0804 97.4 68 20 130/72 94 Nasal 2.0L Cannula 10/11 0800 Nasal 2.0L Cannula 10/11 0128 97.5 60 20 98/60 93 Nasal 3.0L Cannula 10/11 0000 Nasal 2.0L Cannula 10/10 2107 92 Nasal 2.0L Cannula 10/10 1706 97.9 68 20 120/62 93 Nasal 3.0L Cannula 10/10 1600 94 Nasal 3.0L Cannula Intake & Output 10/11 1600 10/11 0800 10/11 0000 Intake Total 600 Output Total Balance 600 Intake, Oral 600 Exam General Appearance: no apparent distress, alert, anxious, comfortable Head: atraumatic, normal appearance Neck: supple Respiratory: quiet respiration, lungs clear, decreased breath sounds Cardiovascular: S1 and S2 heard, heart sounds are distant Abdomen: normal bowel sounds, soft, non-tender Extremities: no edema Skin: intact, normal color, warm/dry Results Last 24 Hrs of Lab Results: Laboratory Tests 10/11/16 0647: Anion Gap 4 L, Estimated GFR > 60, BUN/Creatinine Ratio 30.0 H, PT 37.0 H, INR 3.57 H Impression/Plan Impression/Plan Impression/Plan: 1. Acute diastolic CHF, improved shortness of breath following diuresis. 2. 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 3. Morbid obesity. 4. Significant pulmonary hypertension related to previous valvular heart disorder. 5. Asthmatic bronchitis with mild COPD and history of smoking up until 2004, without evidence of acute exacerbation of COPD. 6. GERD. 7. Hypothyroidism. Recommendations: * Continue to follow cardiology recommendations. * Follow up ECHO results. * Continue negative fluid balance/IV diuresis. * Monitor electrolytes, keep potassium greater than 4. * Continue nebs/TRC. * Continue outpatient medications. * Coumadin for INR between 2.5 and 3.5 for metallic valve prophylaxis. * Symbicort 160/4.5, 2 puffs twice daily. Spiriva 1 inhalation daily. * Continue loratadine and montelukast. * Wean oxygen down to off if able. * Continue all supportive care.
--- NOTE | 2016-10-11 13:04 | Cons- Cardiology ---
General Information and HPI Consulting Request Date of Consult: 10/11/16 Requested By: MARY GRACE WICK,TAE Pineda Reason for Consult: Progressive shortness of breath. Source of Information: patient, old records Exam Limitations: no limitations History of Present Illness: Ms. Gladis Agosto is a 75-year-old female with a history of obesity, hypertension, pulmonary hypertension, dyslipidemia, hypothyroidism on replacement, previous tobacco use, COPD, asthmatic bronchitis, coronary/valvular heart disease (s/p ACS/NSTEMI/pulmonary edema 05/01/2004 prompting emergent transfer to [facility] where she underwent emergency PCI/KATTY [Taxus] to LCx followed by mechanical MVR [[facility] MR safe #29mm] for papillary muscle dysfunction on warfarin anticoagulation and SVG to PDA 05/02/2004) who presented to the ED with a three-day history of progressive shortness of breath, orthopnea, paroxysmal nocturnal dyspnea, etc. She initially thought that her symptoms were on the basis of allergies, hot humid weather, etc., But became concerned when the symptoms continue to progress. She denied any associated chest discomfort, palpitations, change in her chronic bilateral lower extremity edema, weight gain, or change in her chronic "postnasal drip" cough. Allergies/Medications Allergies: Coded Allergies: codeine (Severe, RESPIRATORY DISTRESS, HALLUCINATIONS 07/14/15) oxycodone (SHORTNESS OF BREATH 07/14/15) Iodinated Contrast- Oral and IV Dye (Iodinated Contrast Media - IV Dye) (NAUSEA, DIZZINESS 07/14/15) morphine (VOMITING 07/14/15) Uncoded Allergies: FRESH FROZEN PLASMA (UNKNOWN 07/14/15) Home Med List: Aspirin (Aspirin*) 81 MG TAB.CHEW 1 TAB PO DAILY CAD (Reported) Atorvastatin Calcium 40 MG TABLET 1 TAB PO DAILY HIGH CHOLESTEROL (Reported) Fluticasone Propionate (Flovent Hfa) 110 MCG/ACTUATION AER.W.ADAP 2 PUF INH BID COPD (Reported) Furosemide 20 MG TABLET 1 TAB PO DAILY CHF (Reported) Levothyroxine Sodium 88 MCG TABLET 1 TAB PO DAILY HYPOTHRYOIDISM (Reported) Metoprolol Succinate 50 MG TAB.ER.24H 1 TAB PO DAILY CAD (Reported) Montelukast Sodium (Singulair) 10 MG TABLET 1 TAB PO DAILY DAILY (Reported) Valsartan 160 MG TABLET 1 TAB PO DAILY HTN (Reported) Warfarin Sodium (Coumadin) 4 MG TABLET 1 TAB PO QMON BLOOD THINNER (Reported) Warfarin Sodium (Coumadin) 4 MG TABLET 1 TAB PO QFRI BLOOD THINNER (Reported) Warfarin Sodium (Coumadin) 3 MG TABLET 1 TAB PO SUN TUES THUR BLOOD THINNER ( Reported) Warfarin Sodium (Coumadin) 3 MG TABLET 1 TAB PO QSAT BLOOD THINNER (Reported) Warfarin Sodium 3 MG TABLET 1 TAB PO QWED BLOOD THINNER (Reported) Review of Systems Review of Systems: A 14 point system review was obtained and was noncontributory except for the fact the patient's wears glasses, has had some recent constipation, and has chronic easy bruisability. 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 Home Who Do You Live With? self Services at Home: None Primary Language: Afghan Smoking Status: Former Smoker ETOH Use: occasional use Illicit Drug Use: denies illicit drug use Functional Ability ADLs Independent: dressing, eating, toileting, bathing. Ambulation: independent IADLs Independent: shopping, housework, finances, food prep, telephone, transportation , medication admin. Exam & Diagnostic Data Vital Signs and I&O Vital Signs Date Time Temp Pulse Resp B/P B/P Pulse O2 O2 Flow FiO2 Mean Ox Delivery Rate 10/11 0804 97.4 68 20 130/72 94 Nasal 2.0L Cannula 10/11 0800 Nasal 2.0L Cannula 10/11 0128 97.5 60 20 98/60 93 Nasal 3.0L Cannula 10/11 0000 Nasal 2.0L Cannula 10/10 2107 92 Nasal 2.0L Cannula 10/10 1706 97.9 68 20 120/62 93 Nasal 3.0L Cannula 10/10 1600 94 Nasal 3.0L Cannula Intake & Output 10/11 1600 10/11 0800 10/11 0000 10/10 1600 10/10 0800 10/10 0000 Intake Total 600 560 100 Output Total Balance 600 560 100 Intake, Oral 600 560 100 Patient 244 lb Weight Weight Reported by Patient Measurement Method Physical Exam: Well-developed, obese, elderly female in no acute distress with nasal oxygen in place. Vital signs: See above. HEENT: Normocephalic, atraumatic, EOMI, moist mucous membranes. Neck: No JVD, no bruits. Lungs: Decreased breath sounds occasional crackles at the bases. Heart: S1 (with appropriate mechanical valve sound), S2 and soft (grade 1/6) systolic murmur, with no gallop or rub appreciated. PMI not well felt. Abdomen: Soft, nontender, positive bowel sounds. Extremities: Trace edema. Labs/Bertrand Results: Laboratory Tests 10/11 10/10 10/09 0647 0625 2220 Chemistry Sodium (137 - 145 mmol/L) 140 143 Potassium (3.5 - 5.1 mmol/L) 3.7 4.2 Chloride (98 - 107 mmol/L) 103 105 Carbon Dioxide (22 - 30 mmol/L) 34 H 29 Anion Gap (5 - 16) 4 L 9 BUN (7 - 17 mg/dL) 21 H 18 H Creatinine (0.5 - 1.0 mg/dL) 0.7 0.7 Estimated GFR (>60 ml/min) > 60 > 60 BUN/Creatinine Ratio (7 - 25 %) 30.0 H 25.7 H Troponin I (< 0.11 ng/ml) 0.02 Triglycerides (<150 mg/dL) 71 Cholesterol (<200 MG/DL) 141 LDL Cholesterol, Calc (65 - 129 mg/dL) 68 HDL Cholesterol (40 - 60 mg/dL) 59 Cholesterol/HDL Ratio (0.00 - 4.23 %) 2 Coagulation PT (9.4 - 12.5 SEC) 37.0 H 24.0 H 24.6 H INR (0.90 - 1.19) 3.57 H 2.30 H 2.36 H Hematology CBC w Diff NO MAN DIFF REQ WBC (4.8 - 10.8 /CUMM) 8.6 RBC (4.20 - 5.40 /CUMM) 4.82 Hgb (12.0 - 16.0 G/DL) 13.7 Hct (37 - 47 %) 42.8 MCV (81.0 - 99.0 FL) 88.9 MCH (27.0 - 31.0 PG) 28.3 RDW (11.5 - 14.5 %) 15.8 H Plt Count (130 - 400 /CUMM) 203 MPV (7.4 - 10.4 FL) 9.2 Gran % (42.2 - 75.2 %) 83.8 H Lymphocytes % (20.5 - 51.1 %) 13.0 L Monocytes % (1.7 - 9.3 %) 3.0 Eosinophils % (0 - 5 %) 0 Basophils % (0.0 - 2.0 %) 0.2 Absolute Granulocytes (1.4 - 6.5 /CUMM) 7.2 H Absolute Lymphocytes (1.2 - 3.4 /CUMM) 1.1 L Absolute Monocytes (0.10 - 0.60 /CUMM) 0.3 Absolute Eosinophils (0.0 - 0.7 /CUMM) 0 Absolute Basophils (0.0 - 0.2 /CUMM) 0 PUBS MCHC (33.0 - 37.0 G/DL) 31.9 L 10/09 10/09 1623 1621 Chemistry Sodium (137 - 145 mmol/L) 142 Potassium (3.5 - 5.1 mmol/L) 4.1 Chloride (98 - 107 mmol/L) 107 Carbon Dioxide (22 - 30 mmol/L) 29 Anion Gap (5 - 16) 6 BUN (7 - 17 mg/dL) 20 H Creatinine (0.5 - 1.0 mg/dL) 0.8 Estimated GFR (>60 ml/min) > 60 BUN/Creatinine Ratio (7 - 25 %) 25.0 Glucose (65 - 99 mg/dL) 96 Calcium (8.4 - 10.2 mg/dL) 8.6 Total Bilirubin (0.2 - 1.3 mg/dL) 0.8 AST (14 - 36 U/L) 27 ALT (9 - 52 U/L) 39 Alkaline Phosphatase (<127 U/L) 72 Troponin I (< 0.11 ng/ml) < 0.01 Leg-R-Ayhidaekjpa Pept (<125 pg/mL) 723 H Total Protein (6.3 - 8.2 g/dL) 6.3 Albumin (3.5 - 5.0 g/dL) 3.6 Globulin (1.9 - 4.2 gm/dL) 2.7 Albumin/Globulin Ratio (1.1 - 2.2 %) 1.3 Coagulation PT (9.4 - 12.5 SEC) 25.0 H INR (0.90 - 1.19) 2.48 H Hematology CBC w Diff NO MAN DIFF REQ WBC (4.8 - 10.8 /CUMM) 7.2 RBC (4.20 - 5.40 /CUMM) 4.67 Hgb (12.0 - 16.0 G/DL) 13.2 Hct (37 - 47 %) 40.8 MCV (81.0 - 99.0 FL) 87.5 MCH (27.0 - 31.0 PG) 28.2 RDW (11.5 - 14.5 %) 15.6 H Plt Count (130 - 400 /CUMM) 203 MPV (7.4 - 10.4 FL) 8.7 Gran % (42.2 - 75.2 %) 68.0 Lymphocytes % (20.5 - 51.1 %) 20.4 L Monocytes % (1.7 - 9.3 %) 9.3 Eosinophils % (0 - 5 %) 1.9 Basophils % (0.0 - 2.0 %) 0.4 Absolute Granulocytes (1.4 - 6.5 /CUMM) 4.9 Absolute Lymphocytes (1.2 - 3.4 /CUMM) 1.5 Absolute Monocytes (0.10 - 0.60 /CUMM) 0.7 H Absolute Eosinophils (0.0 - 0.7 /CUMM) 0.1 Absolute Basophils (0.0 - 0.2 /CUMM) 0 PUBS MCHC (33.0 - 37.0 G/DL) 32.3 L Diagnostic Data EKG Results (10/09/2016): Sinus rhythm, consider left atrial abnormality, minor nondiagnostic T-wave abnormalities in V1, V2, and borderline prolonged QT interval. CXR Results (10/09/2016): Stable cardiomegaly. Bilateral lower lobe airspace opacities may reflect a combination of atelectasis and pulmonary edema and/or small effusions, developing infiltrate is not excluded. Other Results Echocardiogram (08/06/2014): Left ventricular cavity size normal. Left ventricular wall thickness mildly increased. No obvious regional wall motion abnormalities. Left ventricular ejection fraction is estimated at >55%. Mild right ventricular dilatation. Normal right ventricular global systolic function. Mild left atrial dilatation. Mechanical prosthetic mitral valve. Normally functioning prosthetic mitral valve. Mean gradient is 4 mmHg across the valve. Right ventricular systolic pressure estimated at >50 mmHg. Assessment/Plan Assessment/Plan [id number]/ hx obesity, HTN, HLD, pul HTN, hypothyroidism on replacement, previous tob use, COPD, asthmatic bronchitis, coronary/valvular heart disease (s /p ACS/NSTEMI/pulmonary edema 05/01/2004 prompting emergent transfer to [facility] where she underwent emergency PCI/KATTY [Taxus] to LCx followed by mechanical MVR [[facility] MR safe #29mm] for papillary muscle dysfunction on warfarin anticoagulation and SVG to PDA 05/02/2004) who presented to the ED with a three-day history of progressive SOB, orthopnea, PND, etc. She is feeling much improved following diuresis with IV furosemide 40 mg 1 in the ED, followed by IV furosemide 40 mg twice daily since that time. She also received IV Solu-Medrol and a nebulizer treatment in the ED and has been continued on O2, nebs/TRC, Symbicort, Spiriva, etc. Recommendations: * Continue on telemetry and follow-up ECG today. * Please attempt strict inputs/outputs and obtain daily weights. * Repeat CXR. * Follow-up on echocardiogram results. * Maintain on warfarin anticoagulation for a goal INR of 3 and range of 2.5-3.5 mEq/L for mechanical prosthesis in the mitral position. * Replete potassium and aim to maintain between 4.0 - 4.5 mEq/L. * Check magnesium and maintain at or above 2.0 mg/L. * Check glycosylated hemoglobin A1c. * DVT prophylaxis being addressed by warfarin anticoagulation for the mechanical mitral valve. Further recommendations will follow, Thank you. Consult Acknowledgment - Thank you for your consult request.
--- NOTE | 2016-10-11 14:16 | PN- Att Addend ---
Attending Addendum Attending Brief Note Ms. Agosto is feeling better but states she is not back to baseline. She denies chest pain and shortness of breath. She is afebrile with stable vital signs. O2 saturations are stable on 2 L of oxygen via nasal cannula. Chest exam is notable for bilateral fine rales. Cardiovascular exam is benign. CBC shows left shift. Her potassium is 3.7 and her renal function is preserved. We are continuing to treat her heart failure with intravenous furosemide. We are monitoring her electrolytes and renal function but should also monitor her magnesium levels. Her potassium should be corrected to 4.0 or greater in her magnesium maintained at 2.0 or greater. We are continuing her pulmonary maintenance medications and her right supplementation.
--- NOTE | 2016-10-11 15:00 | RADIOLOGY REPORT ---
EXAMINATION: XR PORTABLE CHEST CLINICAL INFORMATION: Shortness of breath, pulmonary edema. COMPARISON: Multiple priors, most recent chest radiograph dated 10/09/2016. TECHNIQUE: Portable frontal view of the chest was obtained. FINDINGS: Sternotomy wires and a valve replacement are redemonstrated. Unchanged mild cardiomegaly. Patchy airspace opacities are redemonstrated within the lower lobes, slightly decreased in the right lower lobe when compared to the prior examination. No pneumothorax or pleural effusion. IMPRESSION: Patchy bilateral lower lobe airspace opacities, slightly decreased on the right when compared to the prior examination.
[2016-10-11 16:43] VITALS: BP 126/70
--- NOTE | 2016-10-11 16:47 | ECHOCARDIOGRAM REPORT ---
HENRI ORTEGA Age: 75 : 1940 Gender: F Exam Date: 10/11/2016 09:15 Exam Location: [address] Ht (in): 61 Wt (lb): 244 BSA: 2.25 BP: 98 / 60 Ordering Physician: MARTIN TOLEDO MD Referring Physician: MARTIN TOLEDO MD Technologist: Ann Motley [facility] Room Number: [id number] Indications: HEART FAILURE Rhythm: Sinus Technical Quality: Fair FINDINGS Left Ventricle Normal size left ventricle. Mild concentric left ventricular hypertrophy. Abnormal septal motion consistent with postoperative state. No other obvious regional wall motion abnormalities. Normal left ventricular ejection fraction visually estimated at >60%. Right Ventricle Right ventricle at upper limits of normal. Right Atrium Mild to moderate right atrial dilatation. Left Atrium Mild to moderate left atrial dilatation. Mitral Valve Mild mitral annular calcification. Mechanical prosthetic mitral valve noted, tilting disk type. Gradient recorded across the prosthetic mitral valve within the expected range. Aortic Valve Trileaflet aortic valve. Mild aortic sclerosis. No aortic valve stenosis or regurgitation. Tricuspid Valve Structurally normal tricuspid valve. Trace tricuspid regurgitation. Mild pulmonary hypertension. Right ventricular systolic pressure estimated to be elevated at 45 mmHg. Pulmonic Valve Structurally normal pulmonic valve. No pulmonic regurgitation. Pericardium No pericardial effusion. Great Vessels Normal size aortic root. Mildly dilated inferior vena cava. CONCLUSIONS Normal size left ventricle. Mild concentric left ventricular hypertrophy. Abnormal septal motion consistent with postoperative state. No other obvious regional wall motion abnormalities. Normal left ventricular ejection fraction visually estimated at > 60%. Right ventricle at upper limits of normal. Mild to moderate atrial dilatation. Gradient recorded across the prosthetic mitral valve within the expected range. Trace tricuspid regurgitation. Mild pulmonary hypertension. Mildly dilated inferior vena cava. Brandon Enrique M.D. (Electronically Signed) Final Date: 11 October 2016 16:46 MEASUREMENTS (Male / Female) Normal Values 2D ECHO LV Diastolic Diameter PLAX 5.1 cm 4.2 - 5.9 / 3.9 - 5.3 cm LV Systolic Diameter PLAX 3.3 cm 2.1 - 4.0 cm LV Fractional Shortening PLAX 35.3 % 25 - 46 % LV Ejection Fraction 2D Teich 64.4 % IVS Diastolic Thickness 1.3 cm LVPW Diastolic Thickness 1.3 cm LV Relative Wall Thickness 0.5 RV Internal Dim ED PLAX 3.2 cm 1.9 - 3.8 cm LVOT Diameter 2.1 cm Aortic Root Diameter 3.2 cm LA Systolic Diameter LX 4.8 cm 3.0 - 4.0 / 2.7 - 3.8 cm LA Volume 61.0 cm 18 - 58 / 22 - 52 cm Ascending Aorta Diameter 3.5 cm DOPPLER AV Peak Velocity 145.0 cm/s AV Peak Gradient 8.4 mmHg AV Mean Velocity 98.9 cm/s AV Mean Gradient 4.0 mmHg AV Velocity Time Integral 30.7 cm LVOT Peak Velocity 117.0 cm/s LVOT Peak Gradient 5.5 mmHg LVOT Mean Velocity 87.7 cm/s LVOT Mean Gradient 3.0 mmHg LVOT Velocity Time Integral 27.5 cm LVOT Stroke Volume 95.2 cm AV Area Cont Eq vti 3.1 cm AV Area Cont Eq pk 2.8 cm MV Peak Velocity 197.0 cm/s MV Peak Gradient 15.5 mmHg MV Mean Velocity 94.0 cm/s MV Mean Gradient 5.0 mmHg Mitral E Point Velocity 160.0 cm/s Mitral A Point Velocity 78.4 cm/s Mitral E to A Ratio 2.0 MV PHT Velocity 202.0 cm/s MV Deceleration Gallia 613.0 cm/s MV Pressure Half Time 98.9 ms MV Area PHT 2.2 cm MV Deceleration Time 288.0 ms TR Peak Velocity 318.0 cm/s TR Peak Gradient 40.4 mmHg Right Atrial Pressure 5.0 mmHg Pulmonary Artery Systolic Pressu 45.4 mmHg Right Ventricular Systolic Press 45.4 mmHg PV Peak Velocity 108.0 cm/s PV Peak Gradient 4.7 mmHg PV Mean Velocity 67.6 cm/s PV Mean Gradient 2.0 mmHg PV Velocity Time Integral 24.2 cm LV E' Lateral Velocity 8.0 cm/s Mitral E to LV E' Lateral Ratio 20.1 LV E' Septal Velocity 7.0 cm/s Mitral E to LV E' Septal Ratio 22.8
[2016-10-12 00:14] VITALS: BP 118/70
--- NOTE | 2016-10-12 07:19 | PN- Housestaff ---
See Addendum Subjective Follow-up For: - Acute on chronic toxic respiratory failure secondary to CHF exacerbation - History of mitral valve replacement on warfarin - CAD status post CABG - History of hypothyroidism Complaints: no complaints Tele-Events Since Last Visit: Sinus bradycardia to normal sinus rhythm heart rate occurring between 58-64, PVCs Review of Systems Constitutional: Denies: chills, fever. EENTM: Denies: visual changes. Cardiovascular: Denies: chest pain, palpitations, peripheral edema. Respiratory: Denies: cough, short of breath, wheezing. Gastrointestinal: Denies: abdominal pain, nausea, vomiting. Genitourinary: Reports: no symptoms. Musculoskeletal: Reports: no symptoms. Neurological/Psychological: Denies: headache, numbness, tingling, tremors. Objective Last 24 Hrs of Vital Signs/I&O Vital Signs Date Time Temp Pulse Resp B/P B/P Pulse O2 O2 Flow FiO2 Mean Ox Delivery Rate 10/12 0014 97.9 61 18 118/70 93 Nasal Cannula 10/12 0000 Nasal 2.0L Cannula 10/11 1945 92 Nasal 2.0L Cannula 10/11 1643 98.1 67 18 126/70 94 10/11 1600 95 Nasal 2.0L Cannula 10/11 0804 97.4 68 20 130/72 94 Nasal 2.0L Cannula 10/11 0800 Nasal 2.0L Cannula Intake & Output 10/12 0800 10/12 0000 10/11 1600 Intake Total 400 600 Output Total 1200 800 Balance -800 -200 Intake, Oral 400 600 Number 0 Bowel Movements Output, Urine 1200 800 Physical Exam General Appearance: Alert, Oriented X3, Cooperative, No Acute Distress HEENT: Atraumatic, PERRLA, EOMI, Mucous Membr. moist/pink Neck: Supple, No JVD, No thryomegaly, +2 Carotid Pulse wo Bruit, No LAD Cardiovascular: Regular Rate, Normal S1, Normal S2, No Murmurs Lungs: mild basilar crackles. Abdomen: Normal Bowel Sounds, Soft, No Tenderness Neurological: Normal Gait, Normal Speech, Strength at 5/5 X4 Ext, Normal Tone, Sensation Intact, Cranial Nerves 3-12 NL, Reflexes 2+ Extremities: 1+ bilateral lower extremity edema Vascular: Normal Pulses, Pulses Symmetrical Current Medications: Current Medications Sig/Slade Start time Last Medication Dose Route Stop Time Status Admin Acetaminophen 650 MG Q6P PRN 10/09 2014 AC PO Acetaminophen 1,000 MG DAILY PRN 10/09 2014 AC IV Albuterol Sulfate 3 ML Q4 HRS NEEDED PRN 10/10 0945 AC 10/10 INH 2106 Aspirin 81 MG DAILY 10/10 1000 AC 10/11 PO 1007 Atorvastatin Calcium 40 MG AT BEDTIME 10/10 2200 AC 10/11 PO 2107 Bisacodyl 5 MG DAILY 10/10 1824 AC 10/11 PO 1008 Budesonide/ 2 PUF BID 10/09 2200 AC 10/11 Formoterol Fumarate INH 2106 Docusate Sodium 100 MG DAILY NEEDED PRN 10/10 2030 AC 10/10 PO 2247 Furosemide 40 MG 7:30 AM, & 4:30 PM 10/10 0730 AC 10/12 IV 0636 Levothyroxine Sodium 0.088 MG DAILY AC 10/10 0700 AC 10/12 PO 0636 Loratadine 10 MG DAILY 10/11 1334 AC 10/11 PO 1429 Losartan Potassium 50 MG DAILY 10/10 1000 AC 10/11 PO 1008 Metoprolol Succinate 50 MG DAILY 10/10 1000 AC 10/11 PO 1008 Montelukast Sodium 10 MG AT BEDTIME 10/10 2200 AC 10/11 PO 2106 Polyethylene Glycol 17 GM AT BEDTIME 10/09 2200 AC 10/11 PO 2106 Potassium Chloride 40 MEQ ONCE ONE 10/11 1345 DC 10/11 PO 10/11 1346 1429 Senna/Docusate Sodium 1 TAB AT BEDTIME 10/09 220 AC PO Tiotropium [place] 1 PUF DAILY 10/11 1333 AC 10/11 INH 1428 Warfarin Sodium 2 MG COUMADIN 1700 ONE 10/11 1730 DC 10/11 PO 10/11 1731 1835 Warfarin Sodium 1 MG COUMADIN 1700 ONE 10/11 1700 CAN PO 10/11 1701 Last 24 Hrs of Lab/Bertrand Results Last 24 Hrs of Labs/Mics: Laboratory Tests 10/12/16 0650: Anion Gap 8, Estimated GFR > 60, BUN/Creatinine Ratio 30.0 H, PT 26.7 H, INR 2.57 H, CBC w Diff NO MAN DIFF REQ, RBC 5.07, MCV 88.8, MCH 28.0, RDW 15.7 H, MPV 9.1, Gran % 58.7, Lymphocytes % 28.7, Monocytes % 9.9 H, Eosinophils % 2.1, Basophils % 0.6, Absolute Granulocytes 4.2, Absolute Lymphocytes 2.0, Absolute Monocytes 0.7 H, Absolute Eosinophils 0.2, Absolute Basophils 0, PUBS MCHC 31.5 L Orders ECHO Findings: FINDINGS Left Ventricle Normal size left ventricle. Mild concentric left ventricular hypertrophy. Abnormal septal motion consistent with postoperative state. No other obvious regional wall motion abnormalities. Normal left ventricular ejection fraction visually estimated at >60%. Right Ventricle Right ventricle at upper limits of normal. Right Atrium Mild to moderate right atrial dilatation. Left Atrium Mild to moderate left atrial dilatation. Mitral Valve Mild mitral annular calcification. Mechanical prosthetic mitral valve noted, tilting disk type. Gradient recorded across the prosthetic mitral valve within the expected range. Aortic Valve Trileaflet aortic valve. Mild aortic sclerosis. No aortic valve stenosis or regurgitation. Tricuspid Valve Structurally normal tricuspid valve. Trace tricuspid regurgitation. Mild pulmonary hypertension. Right ventricular systolic pressure estimated to be elevated at 45 mmHg. Pulmonic Valve Structurally normal pulmonic valve. No pulmonic regurgitation. Pericardium No pericardial effusion. Great Vessels Normal size aortic root. Mildly dilated inferior vena cava. CONCLUSIONS Normal size left ventricle. Mild concentric left ventricular hypertrophy. Abnormal septal motion consistent with postoperative state. No other obvious regional wall motion abnormalities. Normal left ventricular ejection fraction visually estimated at > 60%. Right ventricle at upper limits of normal. Mild to moderate atrial dilatation. Gradient recorded across the prosthetic mitral valve within the expected range. Trace tricuspid regurgitation. Mild pulmonary hypertension. Mildly dilated inferior vena cava. Brandon Enrique M.D. (Electronically Signed) Final Date: 11 October 2016 16:46 MEASUREMENTS (Male / Female) Normal Values 2D ECHO LV Diastolic Diameter PLAX 5.1 cm 4.2 - 5.9 / 3.9 - 5.3 cm LV Systolic Diameter PLAX 3.3 cm 2.1 - 4.0 cm LV Fractional Shortening PLAX 35.3 % 25 - 46 % LV Ejection Fraction 2D Teich 64.4 % IVS Diastolic Thickness 1.3 cm LVPW Diastolic Thickness 1.3 cm LV Relative Wall Thickness 0.5 RV Internal Dim ED PLAX 3.2 cm 1.9 - 3.8 cm LVOT Diameter 2.1 cm Aortic Root Diameter 3.2 cm LA Systolic Diameter LX 4.8 cm 3.0 - 4.0 / 2.7 - 3.8 cm LA Volume 61.0 cm 18 - 58 / 22 - 52 cm Ascending Aorta Diameter 3.5 cm DOPPLER AV Peak Velocity 145.0 cm/s AV Peak Gradient 8.4 mmHg AV Mean Velocity 98.9 cm/s AV Mean Gradient 4.0 mmHg AV Velocity Time Integral 30.7 cm LVOT Peak Velocity 117.0 cm/s LVOT Peak Gradient 5.5 mmHg LVOT Mean Velocity 87.7 cm/s LVOT Mean Gradient 3.0 mmHg LVOT Velocity Time Integral 27.5 cm LVOT Stroke Volume 95.2 cm AV Area Cont Eq vti 3.1 cm AV Area Cont Eq pk 2.8 cm MV Peak Velocity 197.0 cm/s MV Peak Gradient 15.5 mmHg MV Mean Velocity 94.0 cm/s MV Mean Gradient 5.0 mmHg Mitral E Point Velocity 160.0 cm/s Mitral A Point Velocity 78.4 cm/s Mitral E to A Ratio 2.0 MV PHT Velocity 202.0 cm/s MV Deceleration Humphreys 613.0 cm/s MV Pressure Half Time 98.9 ms MV Area PHT 2.2 cm MV Deceleration Time 288.0 ms TR Peak Velocity 318.0 cm/s TR Peak Gradient 40.4 mmHg Right Atrial Pressure 5.0 mmHg Pulmonary Artery Systolic Pressu 45.4 mmHg Right Ventricular Systolic Press 45.4 mmHg PV Peak Velocity 108.0 cm/s PV Peak Gradient 4.7 mmHg PV Mean Velocity 67.6 cm/s PV Mean Gradient 2.0 mmHg PV Velocity Time Integral 24.2 cm LV E' Lateral Velocity 8.0 cm/s Mitral E to LV E' Lateral Ratio 20.1 LV E' Septal Velocity 7.0 cm/s Mitral E to LV E' Septal Ratio 22.8 Radiology Findings: SERVICE DATE: 10/11/16 EXAM TYPE: RAD - XRY-PORTABLE CHEST XRAY FINDINGS: Sternotomy wires and a valve replacement are redemonstrated. Unchanged mild cardiomegaly. Patchy airspace opacities are redemonstrated within the lower lobes, slightly decreased in the right lower lobe when compared to the prior examination. No pneumothorax or pleural effusion. IMPRESSION: Patchy bilateral lower lobe airspace opacities, slightly decreased on the right when compared to the prior examination. Assessment/Plan Assessment: 50-year-old female with past medical history significant for hypertension hyperlipidemia, CAD, mitral valve replacement (on warfarin), hypothyroidism, CAD status post CABG presented to the ER with progressive worsening of shortness of breath, dry cough, leg swelling. In the ER she received a treatment of albuterol and ipratropium and was given 125 mg of IV Solu-Medrol with 40 mg of IV Lasix. Patient was admitted on telemetry floor for the management of following problems : #Acute on chronic hypoxic respiratory failure secondary to CHF exacerbation - Continue to provide supplemental oxygen to maintain sats > 92% - continue to diurese with Lasix 40mg BID IV today and transition to by mouth Lasix 40 mg twice a day tomorrow -Echocardiogram showed no regional wall motion abnormalities and a normal left ventricular ejection fraction (60% - Following Cardio recs - Strict ins and outs # Mild COPD - Remote history of smoking - Continue to Duoneb Q8hrs, Symbicort - Continue loratadine, monterlucast, Spirivia # History of mitral valve replacement on warfarin - Daily dosing INR goal of 2.5-3.5 -INR this morning 2.57. Dose home dose of 3 mg Coumadin. Follow-up INR in a.m. # CAD status post CABG - Continue aspirin 81 mg, atorvastatin 40 mg, metoprolol succinate 50 mg # History of hypothyroidism - Continue levothyroxine home dose DVT prophylaxis - On warfarin CODE STATUS - Full code Problem List: 1. CHF (congestive heart failure) Pain Ratin Pain Location: Not applicable Pain Goal: Remain pain free Pain Plan: Tylenol 650 mg every 6 when necessary by mouth Tomorrow's Labs & Rationales: INR dose Coumadin accordingly
[2016-10-12 07:53] VITALS: BP 110/70
[2016-10-12 08:21] LABS: PT 26.7 SEC (9.4-12.5)
[2016-10-12 08:38] LABS: ABSOLUTE BASOPHIL COUNT 0 /CUMM (0.0-0.2); ABSOLUTE EOSINOPHIL COUNT 0.2 /CUMM (0.0-0.7); ABSOLUTE GRANULOCYTE CT 4.2 /CUMM (1.4-6.5); ABSOLUTE MONOCYTE COUNT 0.7 /CUMM (0.10-0.60); BASOPHIL % 0.6 % (0.0-2.0); EOSINOPHIL % 2.1 % (0-5); GRANULOCYTE % 58.7 % (42.2-75.2); HEMATOCRIT 45.1 % (37-47); MEAN CORPUSCULAR HGB CONC 31.5 G/DL (33.0-37.0); MEAN CORPUSCULAR VOLUME 88.8 FL (81.0-99.0); MEAN PLATELET VOLUME 9.1 FL (7.4-10.4); PLATELET COUNT 209 /CUMM (130-400); RBC DISTRIBUTION WIDTH 15.7 % (11.5-14.5); RED BLOOD CELL CT 5.07 /CUMM (4.20-5.40); WHITE BLOOD CELL COUNT 7.1 /CUMM (4.8-10.8)
[2016-10-12 16:40] VITALS: BP 102/64
[2016-10-13 01:34] VITALS: BP 110/60
[2016-10-13 06:57] VITALS: BP 120/70
--- NOTE | 2016-10-13 07:11 | PN- Housestaff ---
See Addendum Subjective Follow-up For: - Acute on chronic hypoxic respiratory failure 2/2 CHF exacerbation - History of mitral valve replacement on warfarin Tele-Events Since Last Visit: NSR, 62-70. Subjective: Patient seen and examined at bedside. She states she didn't sleep well last night because of cramos in her legs. States that she was able to ambulate around yesterday. Her O2 sats were 92% onRA, and she desaturated to 85% on ambulation. She is currently on 2.0 liters of O2. Review of Systems Constitutional: Denies: chills, fever, weakness. EENTM: Denies: visual changes. Cardiovascular: Reports: peripheral edema. Denies: chest pain, palpitations, syncope. Respiratory: Reports: cough. Denies: orthopnea, short of breath, sputum production, wheezing. Gastrointestinal: Denies: abdominal pain, constipation, diarrhea, nausea, vomiting. Genitourinary: Reports: no symptoms. Musculoskeletal: Reports: no symptoms. Neurological/Psychological: Denies: headache, numbness, tingling, tremors. Objective Last 24 Hrs of Vital Signs/I&O Vital Signs Date Time Temp Pulse Resp B/P B/P Pulse O2 O2 Flow FiO2 Mean Ox Delivery Rate 10/13 0657 97.4 70 16 120/70 88 Nasal 2.0L Cannula 10/13 0134 97.8 66 16 110/60 90 Nasal 2.0L Cannula 10/13 0000 Nasal 2.0L Cannula 10/12 2135 88 Nasal 1.5L Cannula 10/12 1640 98.0 64 16 102/64 91 Nasal 2.0L Cannula 10/12 1211 93 Nasal 1.5L Cannula 10/12 1011 60 110/70 10/12 1011 60 110/70 10/12 0800 Nasal 2.0L Cannula 10/12 0753 60 14 110/70 92 Nasal 2.0L Cannula Intake & Output 10/13 0800 10/13 0000 10/12 1600 Intake Total 500 254 840 Output Total 500 1000 1450 Balance 0 -746 -610 Intake, IV 14 Intake, Oral 500 240 840 Number 1 Bowel Movements Output, Urine 500 1000 1450 Physical Exam General Appearance: Alert, Oriented X3, Cooperative, No Acute Distress HEENT: Atraumatic, PERRLA, EOMI, Mucous Membr. moist/pink Neck: Supple, No JVD, No thryomegaly, +2 Carotid Pulse wo Bruit, No LAD Cardiovascular: Regular Rate, Normal S1, Normal S2, No Murmurs Lungs: mild basilar crackles on left side. Abdomen: Normal Bowel Sounds, Soft, No Tenderness, No Hepatospenomegaly, No Masses Neurological: Normal Speech, Strength at 5/5 X4 Ext, Normal Tone, Sensation Intact, Cranial Nerves 3-12 NL, Reflexes 2+ Extremities: No Clubbing, No Cyanosis, No Edema, Normal Pulses, No Tenderness/ Swelling Vascular: Normal Pulses, Pulses Symmetrical Current Medications: Current Medications Sig/Slade Start time Last Medication Dose Route Stop Time Status Admin Acetaminophen 650 MG Q6P PRN 10/09 2014 AC PO Acetaminophen 1,000 MG DAILY PRN 10/09 2014 AC IV Albuterol Sulfate 3 ML Q4 HRS NEEDED PRN 10/10 0945 AC 10/10 INH 2106 Aspirin 81 MG DAILY 10/10 1000 AC 10/12 PO 1011 Atorvastatin Calcium 40 MG AT BEDTIME 10/10 2199 AC 10/12 PO 2051 Bisacodyl 5 MG DAILY 10/10 1824 AC 10/11 PO 1008 Budesonide/ 2 PUF BID 10/09 2199 AC 10/12 Formoterol Fumarate INH 2052 Docusate Sodium 100 MG DAILY NEEDED PRN 10/10 2030 AC 10/10 PO 2247 Furosemide 40 MG BID 10/13 1000 AC PO Furosemide 40 MG ONCE ONE 10/12 1630 DC 10/12 IV 10/12 1631 1602 Furosemide 40 MG DAILY 10/12 1000 DC PO Furosemide 40 MG 7:30 AM, & 4:30 PM 10/10 0730 KS 10/12 IV 0636 Levothyroxine Sodium 0.088 MG DAILY AC 10/10 0700 AC 10/13 PO 0631 Loratadine 10 MG DAILY 10/11 1334 AC 10/12 PO 1011 Losartan Potassium 50 MG DAILY 10/10 1000 AC 10/12 PO 1011 Metoprolol Succinate 50 MG DAILY 10/10 1000 AC 10/12 PO 1011 Montelukast Sodium 10 MG AT BEDTIME 10/10 2199 AC 10/12 PO 2051 Patient Medication 1 ED .STK-MED ONE 10/12 1403 DC Teaching ED 10/12 1404 Polyethylene Glycol 17 GM AT BEDTIME 10/09 2199 10/12 PO 2052 Senna/Docusate Sodium 1 TAB AT BEDTIME 10/09 220 AC PO Tiotropium [place] 1 PUF DAILY 10/11 1333 AC 10/12 INH 1012 Warfarin Sodium 3 MG COUMADIN 1700 ONE 10/12 1700 DC 10/12 PO 10/12 1701 1603 Warfarin Sodium 2 MG .STK-MED ONE 10/12 1601 DC PO 10/12 1602 Last 24 Hrs of Lab/Bertrand Results Last 24 Hrs of Labs/Mics: Laboratory Tests 10/13/16 0700: Sodium Pending, Potassium Pending, Chloride Pending, Carbon Dioxide Pending, Anion Gap Pending, BUN Pending, Creatinine Pending, BUN/Creatinine Ratio Pending , PT Pending, INR Pending Assessment/Plan Assessment: 50-year-old female with past medical history significant for hypertension hyperlipidemia, CAD, mitral valve replacement (on warfarin), hypothyroidism, CAD status post CABG presented to the ER with progressive worsening of shortness of breath, dry cough, leg swelling. In the ER she received a treatment of albuterol and ipratropium and was given 125 mg of IV Solu-Medrol with 40 mg of IV Lasix. Patient was admitted on telemetry floor for the management of following problems : #Acute on chronic hypoxic respiratory failure secondary to CHF exacerbation - Continue to provide supplemental oxygen to maintain sats > 92% - Will trasnition to Lasix 40mg BID PO today. Would consider fast prednisone taper on her. -Echocardiogram showed no regional wall motion abnormalities and a normal left ventricular ejection fraction (60%) - She is in net negative 850mls of fluid balance. - Following Cardio recs - Strict ins and outs # Mild COPD - Remote history of smoking - Continue to Duoneb Q8hrs, Symbicort - Continue loratadine, monterlucast, Spirivia # History of mitral valve replacement on warfarin - Daily dosing INR goal of 2.5-3.5 -INR this morning pending. Dose Coumadin to maintain the desired INR. - Follow-up INR in a.m. # CAD status post CABG - Continue aspirin 81 mg, atorvastatin 40 mg, metoprolol succinate 50 mg # History of hypothyroidism - Continue levothyroxine home dose DVT prophylaxis - On warfarin CODE STATUS - Full code Problem List: 1. CHF (congestive heart failure) Pain Ratin Pain Location: n/a Alt Method for Pain Treatment: Aroma Therapy Pain Goal: Remain pain free Pain Plan: Tylenol 1000mg IV PRN Tomorrow's Labs & Rationales: INR - On coumadin
[2016-10-13] MEDS ORDERED: LASIX40 M1 PO ×3 (08:02→10:09)
[2016-10-13] MEDS ORDERED: LORATADINE10 M1 PO ×2 (08:02→10:09)
--- NOTE | 2016-10-13 08:06 | Patient Discharge Instructions ---
Discharge Instructions General Discharge Information You were seen/treated for: - Acute on chronic hypoxic respiratory failure 2/2 CHF exacerbation Special Instructions: Please follow up with your primary care physician on one week. Please follow up with your practice billing associate in one week. Please have a repeat BEP on October 21, 2016. Please take Lasix as directed: 1 tablet twice a day from 10/13/16 - through 10/18/16, then take 1 tablet daily from 10/19/16 Diet Recommended Diet: Heart Healthy Activity Activity Self Limited: Yes Acute Coronary Syndrome Inclusion Criteria At DC or during hospital stay patient has or had the following: ACS DIAGNOSIS No Discharge Core Measures Meds if any: Prescribed or Continued at Discharge Meds if any: NOT Prescribed or Continued at Discharge Congestive Heart Failure Inclusion Criteria At DC or during hospital stay patient has or had the following: CHF DIAGNOSIS Yes Discharge Core Measures Meds if any: Prescribed or Continued at Discharge SMOOTH/ARB for EF <40% No Meds if any: NOT Prescribed or Continued at Discharge No SMOOTH/ARB d/t LDL <100mg/dL Cerebrovascular accident Inclusion Criteria At DC or during hospital stay patient has or had the following: CVA/TIA Diagnosis No Discharge Core Measures Meds if any: Prescribed or Continued at Discharge Meds if any: NOT Prescribed or Continued at Discharge Venous thromboembolism Inclusion Criteria VTE Diagnosis No VTE Type NONE VTE Confirmed by (Test) NONE Discharge Core Measures - Per Current guidelines, there needs to be overlap - treatment for the first 5 days of Warfarin therapy. - If discharged on Warfarin prior to 5 days of - overlap therapy, the patient will need to be - assessed for post discharge needs including - *Post discharge parental anticoagulation - *Warfarin and/or parental anticoagulation education - *Follow up date to check INR post discharge At least 5 days overlap therapy as Inpatient No Meds if any: Prescribed or Continued at Discharge Note: Overlap Therapy is Warfarin and Anticoagulant Meds if any: NOT Prescribed or Continued at Discharge
[2016-10-13 08:15] LABS: PT 25.7 SEC (9.4-12.5)
[2016-10-13 09:31] VITALS: BP 120/70
[2016-10-13] MEDS ORDERED: PROAIR HFA8.5 GM INH (10:08)
--- NOTE | 2016-10-13 11:00 | NUR ---
AT REST O2 ON 2L IS 96%. AMBULATING ON 2L O2 DROPPED TO 93%. PT AMBULATED ABOUT 25 FEET ON ROOM AIR. O2 SAT DROPPED TO 82% WITHOUT SHORTNESS OF BREATH.
[2016-10-13] MEDS ORDERED: POTASSIUM CHLO20 ME2 PO (13:05)
== END 2016-10-13 15:30 | DRG 291 ==
LOC: ERH 15:19 → 1NO 17:07 → ERHI 17:07 → CANRESERV 18:48 → ENRESERV 18:48 → CANRESERV 19:35 → EDBEDREQ 19:42 → ENRESERV 20:10 → ENTRNSPT 21:06 → 1NO 21:40 → CMPTRNSPT 21:54 → 1NO 10-10 07:09 → ENPENDDIS 10-13 10:10 → 1NO 10-13 15:30
PROVIDERS: Emergency Medicine; Internal Medicine Infectious Disease; Student in an Organized Health Care Education/Training Program; ADMIT Internal Medicine Pulmonary Disease
DX: I11.0 Hypertensive heart disease with heart failure (principal); J96.01 Acute respiratory failure with hypoxia; Z68.42 Body mass index [BMI] 45.0-49.9, adult; J44.9 Chronic obstructive pulmonary disease, unspecified; E66.01 Morbid (severe) obesity due to excess calories; I27.2 Other secondary pulmonary hypertension; J96.21 Acute and chronic respiratory failure with hypoxia; I50.33 Acute on chronic diastolic (congestive) heart failure; E78.5 Hyperlipidemia, unspecified; E03.9 Hypothyroidism, unspecified; Z87.891 Personal history of nicotine dependence; I25.10 Atherosclerotic heart disease of native coronary artery without angina pectoris; I25.2 Old myocardial infarction; Z79.01 Long term (current) use of anticoagulants; Z95.2 Presence of prosthetic heart valve; K21.9 Gastro-esophageal reflux disease without esophagitis; R01.1 Cardiac murmur, unspecified; Z95.1 Presence of aortocoronary bypass graft; R00.1 Bradycardia, unspecified; K42.9 Umbilical hernia without obstruction or gangrene; J30.9 Allergic rhinitis, unspecified
CPT/HCPCS: 1NSP; 36415; 82436; 93005; 93010; 93306; 96374; 96375; 99291; J0131; J1940; J2930; J3490

== ENCOUNTER 2018-01-08 11:00 | Inpatient (IN) | payer OTHER, MEDICARE ==
[~2018-01-08] VITALS: Ht 152.4 cm; Wt 105.7 kg
[~2018-01-08 11:00] MED LIST changes: +ASPIRIN81 M4 PO; +ATORVASTATIN CA40 M1 PO; +COUMADIN1 M1 PO; +COUMADIN3 M1 PO; +COUMADIN4 M1 PO; +FLOVENT HFA12 G1 INH; +FUROSEMIDE20 M1 PO; +LASIX40 M1 PO; +LEVOTHYROXINE88 MCG PO; +LORATADINE10 M1 PO; +METOPROLOL SUCC50 M2 PO; +MONTELUKAST SOD10 M1 PO; +POTASSIUM CHLO20 ME2 PO; +PROAIR HFA8.5 GM INH; +SINGULAIR10 M1 PO; +VALSARTAN160 M1 PO; +WARFARIN SODIUM3 M1 PO
--- NOTE | 2018-01-08 11:34 | ED GI/GU/ABDOMINAL COMPLAINT ---
History of Present Illness General Chief Complaint: Female Urogenital Problems Stated Complaint: VAGINAL BLEEDING, 1 DAY, + BLD THINNERS Source: patient Exam Limitations: no limitations Vital Signs & Intake/Output Vital Signs & Intake/Output Vital Signs Date Time Temp Pulse Resp B/P B/P Pulse O2 O2 Flow FiO2 Mean Ox Delivery Rate 01/08 1821 98.0 67 18 125/68 89 Nasal 2.0L Cannula 01/08 1730 Nasal 2.0L Cannula 01/08 1646 97.7 60 20 142/68 92 Nasal 2.0L Cannula 01/08 1557 97.8 62 20 128/60 94 Nasal 2.0L Cannula 01/08 1332 93 Nasal 2.0L Cannula 01/08 1315 97.9 70 20 140/65 87 Room Air 01/08 1138 93 Room Air 01/08 1105 96.8 81 18 148/83 91 Room Air Allergies Coded Allergies: codeine (Severe, RESPIRATORY DISTRESS, HALLUCINATIONS 07/14/15) oxycodone (SHORTNESS OF BREATH 07/14/15) Iodinated Contrast- Oral and IV Dye (Iodinated Contrast Media - IV Dye) (NAUSEA, DIZZINESS 07/14/15) morphine (VOMITING 07/14/15) Uncoded Allergies: FRESH FROZEN PLASMA (UNKNOWN 07/14/15) Triage Note: PT TO ED WITH VAGINAL BLEEDING X1 DAY. STATES SHE WILL GET THIS PERIODICALLY BUT THIS FEELS DIFFERENT SHE STATES. IS CURRENTLY ON WARFARIN WELL. DENIES ANY DIZZINESS/LIGHTHEADEDNESS, BUT FEELS ODD PER PT. HAS HX OF COPD, RA SAT 91%. STATES SHE USUALLY RUNS LOW 90'S. Triage Nurses Notes Reviewed? yes ? N Is pt currently ? No Onset: Abrupt HPI: 77-year-old female comes into the emergency room for further evaluation of vaginal bleeding. Patient is on Coumadin for [facility] [place] valve replacement. Bleeding has been going on intermittently for 6 months but worse over last 2 days. Some lower abdominal pressure. Denies any fever chills vomiting and lightheaded dizziness or passing out. Comes in for further evaluation. (Alex JEFFERSON,Mick) Reconcile Medications Albuterol Sulfate (Proair Hfa) 90 MCG HFA.AER.AD 2 PUF INH Q4-6 PRN PRN SHORTNESS OF BREATH Aspirin (Aspirin*) 81 MG TAB.CHEW 1 TAB PO DAILY CAD (Reported) Atorvastatin Calcium 40 MG TABLET 1 TAB PO DAILY HIGH CHOLESTEROL (Reported) Fluticasone Propionate (Flovent Hfa) 110 MCG/ACTUATION AER.W.ADAP 2 PUF INH BID COPD (Reported) Furosemide (Lasix) 40 MG TABLET 40 MG PO DAILY fluid overload Take 1 tablet twice a day from 10/13-10/18/16, then take 1 talet daily . Levothyroxine Sodium 88 MCG TABLET 1 TAB PO DAILY HYPOTHRYOIDISM (Reported) Loratadine 10 MG TABLET 10 MG PO DAILY COPD . Metoprolol Succinate 50 MG TAB.ER.24H 1 TAB PO DAILY CAD (Reported) Montelukast Sodium (Singulair) 10 MG TABLET 1 TAB PO DAILY DAILY (Reported) Potassium Chloride 20 MEQ TAB.ER.PRT 1 TAB PO DAILY supplement Valsartan 160 MG TABLET 1 TAB PO DAILY HTN (Reported) Warfarin Sodium (Coumadin) 4 MG TABLET 1 TAB PO QMON BLOOD THINNER (Reported) WEDNESDAY, WEDNESDAY, WEDNESDAY Warfarin Sodium (Coumadin) 3 MG TABLET 1 TAB PO SUN BLOOD THINNER ( Reported) WEDNESDAY, WEDNESDAY, WEDNESDAY, WEDNESDAY (Mirza WICK,Norman) Past History Travel History Traveled to [place] past 21 day No Medical History Any Pertinent Medical History? 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 No (Mick Proctor) Review of Systems Review of Systems Constitutional: Reports: no symptoms. EENTM: Reports: no symptoms. Respiratory: Reports: no symptoms. Cardiovascular: Reports: no symptoms. GI: Reports: no symptoms. Genitourinary: Reports: see HPI. Musculoskeletal: Reports: no symptoms. Skin: Reports: no symptoms. Neurological/Psychological: Reports: no symptoms. Hematologic/Endocrine: Reports: see HPI. Immunologic/Allergic: Reports: no symptoms. All Other Systems: Reviewed and Negative (Mick Proctor) Physical Exam Physical Exam General Appearance: well developed/nourished, no apparent distress, alert Head: atraumatic, normal appearance Eyes: Bilateral: normal appearance. Ears, Nose, Throat, Mouth: hearing grossly normal, moist mucous membrane Neck: normal inspection Respiratory: no respiratory distress Cardiovascular: regular rate/rhythm Gastrointestinal: soft, non-tender Back: normal inspection Extremities: normal range of motion Neurologic/Psych: awake, alert, oriented x 3 Skin: intact, normal color Core Measures ACS in differential dx? No Sepsis Present: No Sepsis Focused Exam Completed? No (Mick Proctor) Progress Differential Diagnosis: uterine cancer, high INR, uterine fibroid Plan of Care: Orders Procedure Date/time Status MAGNESIUM 01/09 0600 Active CBC WITHOUT DIFFERENTIAL 01/09 06 Active BASIC ELECTROLYTES PLUS BUN&CR 01/09 06 Active Heart Healthy Diet 01/08 D Active Pathway - chart 01/08 174 Active House Staff 01/08 1742 Active Patient Data 01/08 1742 Active Code Status 01/08 1742 Active Weight 01/08 1726 Active Vital Signs 01/08 1726 Active Teach/Educate 01/08 1726 Active Pain Treatment and Response 01/08 1726 Active Nutritional Intake, Monitor 01/08 1726 Active Isolation 01/08 1726 Active Intake & Output 01/08 1726 Complete Patient Care Conference 01/08 1726 Active Activity/Ambulation 01/08 1726 Active ED Holding Orders 01/08 1607 Active Admit to inpatient 01/08 1607 Active Patient Data 01/08 1601 Active URINALYSIS 01/08 1535 Complete Intake & Output 01/08 1410 Active Add-on Test (ER Only) 01/08 1319 Active EKG 01/08 1319 Active TROPONIN LEVEL 01/08 1140 Complete B-TYPE NATRIURETIC PEP (BNP) 01/08 1140 Complete PARTIAL THROMBOPLASTIN TIME 01/08 1113 Complete PROTHROMBIN TIME 01/08 1113 Complete COMPREHENSIVE METABOLIC PANEL 01/08 1113 Complete CBC WITHOUT DIFFERENTIAL 01/08 1113 Complete VTE Mechanical Prophylaxis 01/08 UNK Active Telemetry/Top Closer 01/08 UNK Active Nursing Misc 01/08 UNK Complete Current Medications Sig/Slade Start time Last Medication Dose Stop Time Status Admin Atorvastatin Calcium 40 MG DAILY 01/09 900 AC (Lipitor) Furosemide 40 MG DAILY 01/09 900 AC (Lasix) Loratadine 10 MG DAILY 01/09 900 AC (Claritin) Losartan Potassium 50 MG DAILY 01/09 900 AC (Cozaar) Metoprolol Succinate 50 MG DAILY 01/09 900 AC (Toprol Xl) Levothyroxine Sodium 0.088 MG DAILY AC 01/09 07 AC (Synthroid) Fluticasone 2 PUF BID 01/08 2100 AC Propionate (Flovent) Albuterol Sulfate 2 PUF Q4-6 PRN PRN 01/08 1745 AC (Ventolin) Montelukast Sodium 10 MG DAILY 01/08 173 AC (Singulair) Potassium Chloride 20 MEQ DAILY 01/08 173 AC (K-Dur) Laboratory Tests 01/08/18 1540: Urine Color PINK H, Urine Clarity HAZY H, Urine pH 7.0, Ur Specific [place] 1.015, Urine Protein NEG, Urine Ketones NEG, Urine Nitrite NEG, Urine Bilirubin NEG, Urine Urobilinogen 0.2, Ur Leukocyte Esterase NEG, Ur Microscopic SEDIMENT EXAMINED, Urine RBC >75 H, Urine WBC RARE, Urine Hemoglobin LARGE H, Urine Glucose NEG 01/08/18 1140: Anion Gap 5, Estimated GFR > 60, BUN/Creatinine Ratio 21.4, Glucose 110 H, Calcium 8.7, Total Bilirubin 0.7, AST 23, ALT 29, Alkaline Phosphatase 93, Troponin I < 0.01, Ffb-[id number]-[id number] Pept 474 H, Total Protein 6.8, Albumin 3.6 , Globulin 3.2, Albumin/Globulin Ratio 1.1, PT 37.3 H, INR 3.38 H, APTT 47 H, CBC w Diff NO MAN DIFF REQ, RBC 5.05, MCV 86.6, MCH 28.2, MCHC 32.6 L, RDW 15.8 H, MPV 9.2, Gran % 64.1, Lymphocytes % 25.0, Monocytes % 9.3, Eosinophils % 1.2 , Basophils % 0.4, Absolute Granulocytes 4.3, Absolute Lymphocytes 1.7, Absolute Monocytes 0.6, Absolute Eosinophils 0.1, Absolute Basophils 0 Diagnostic Imaging: Viewed by Me: Ultrasound. Discussed w/RAD: Ultrasound. Radiology Impression: PATIENT: HENRI ORTEGA PRESENT AGE: 77 PATIENT ACCOUNT NO: [id number] : 41 LOCATION: [facility] ORDERING PHYSICIAN: Mick JEFFERSON SERVICE DATE: 01/08/18 EXAM TYPE : RAD - XRY-PORTABLE CHEST XRAY EXAMINATION: CHEST 1 VIEW CLINICAL INFORMATION: Shortness of breath. COMPARISON: 01/19/2017. TECHNIQUE: An AP view of the chest is provided. FINDINGS: The cardiac silhouette is enlarged, though stable. Intact midline sternal wires are present. There is diffuse interstitial prominence throughout both lungs with nonspecific hazy opacification within the lung bases. There are neither pleural effusions nor pneumothoraces. The osseous structures are stable. IMPRESSION: Stable enlarged cardiac silhouette with mild to moderate vascular congestion. Nonspecific hazy opacification at the right lung base which could correspond to atelectasis or a developing infiltrate. DICTATED BY: David Liz MD DATE/TIME DICTATED:01/08/181349 LASERIST:RAMÓN DATE/ TIME TRANSCRIBED:01/08/181349 CONFIDENTIAL, DO NOT COPY WITHOUT APPROPRIATE AUTHORIZATION. <Electronically signed in Other Vendor System> SIGNED BY: David Liz MD 01/08/18 1358, PATIENT: HENRI ORTEGA PRESENT AGE: 77 PATIENT ACCOUNT NO: [id number] : 41 LOCATION: [facility] ORDERING PHYSICIAN: Mick JEFFERSON SERVICE DATE: 01/08/18 EXAM TYPE : US - US-TRANSVAGINAL EXAMINATION: ULTRASOUND PELVIC, COMPLETE CLINICAL INFORMATION: Vaginal bleeding. COMPARISON: None. TECHNIQUE: Transabdominal and transvaginal imaging was performed. Transvaginal imaging was performed for further evaluation of the endometrium and adnexa. FINDINGS: The uterus is of normal size and echogenicity measuring 7.8 x 4.0 x 5.0 cm. Evaluation of the endometrium is limited secondary to patient positioning; however, the endometrium appears homogeneous and regular measuring approximately 8 mm. There are no mass lesions identified. There is no fluid within the individual cavity. The cervical length is 2.7 cm. Neither ovary is identified. There are no adnexal mass lesions. There is no pelvic free fluid. IMPRESSION: Slightly limited exam due to patient positioning; however, no endometrial mass lesions or fluid demonstrable. Neither ovary identified. No adnexal masses identified. DICTATED BY: David Liz MD DATE/TIME DICTATED:01/08/181321 LASERIST: RAMÓN DATE/TIME TRANSCRIBED:01/08/181321 CONFIDENTIAL, DO NOT COPY WITHOUT APPROPRIATE AUTHORIZATION. <Electronically signed in Other Vendor System> SIGNED BY: David Liz MD 01/08/181327 Initial ED EKG: none (Mick Proctor) Departure Departure Disposition: STILL A PATIENT Condition: Stable Clinical Impression Primary Impression: CHF exacerbation Secondary Impressions: COPD (chronic obstructive pulmonary disease), Hypoxia Referrals: Donaldo Smith MD (PCP/Family) Departure Forms: Customer Survey General Discharge Information Admission Note Spoke With: Phong Godfrey MD Documentation of Exam: Documentation of any treatments & extenuating circumstances including Concerns Regarding Discharge (functional status, medication knowledge or non-compliance, living conditions, etc.) that warrant an admission rather than observation: Patient will require supplemental oxygen. IV steroids. IV diuresis. Cardiac telemetry. Cardiac consultation. Pulmonary consultation. (Mick Proctor) PA/SCRAP KETTLE TENDER Co-Sign Statement Statement: ED Attending supervision documentation- x I saw and evaluated the patient. I have also reviewed all the pertinent lab results and diagnostic results. I agree with the findings and the plan of care as documented in the PA's/SCRAP KETTLE TENDER's documentation. Patient is short of breath with intermittent heavy vaginal bleeding on anticoagulation. Hemoglobin less than 7 with a cardiac history. Patient to be admitted for further evaluation and treatment. [] I have reviewed the ED Record and agree with the PA's/SCRAP KETTLE TENDER's documentation. [] Additions or exceptions (if any) to the PAs/SCRAP KETTLE TENDER's note and plan are summarized below: [] (Mirza WICK,Norman)
[2018-01-08 11:54] LABS: ABSOLUTE BASOPHIL COUNT 0 /CUMM (0.0-0.2); ABSOLUTE EOSINOPHIL COUNT 0.1 /CUMM (0.0-0.7); ABSOLUTE GRANULOCYTE CT 4.3 /CUMM (1.4-6.5); ABSOLUTE LYMPH COUNT 1.7 /CUMM (1.2-3.4); ABSOLUTE MONOCYTE COUNT 0.6 /CUMM (0.10-0.60); BASOPHIL % 0.4 % (0.0-2.0); EOSINOPHIL % 1.2 % (0-5); GRANULOCYTE % 64.1 % (42.2-75.2); HEMATOCRIT 43.7 % (37-47); MEAN CORPUSCULAR HGB 28.2 PG (27.0-31.0); MEAN CORPUSCULAR HGB CONC 32.6 G/DL (33.0-37.0); MEAN CORPUSCULAR VOLUME 86.6 FL (81.0-99.0); MEAN PLATELET VOLUME 9.2 FL (7.4-10.4); PLATELET COUNT 247 /CUMM (130-400); RBC DISTRIBUTION WIDTH 15.8 % (11.5-14.5); RED BLOOD CELL CT 5.05 /CUMM (4.20-5.40); WHITE BLOOD CELL COUNT 6.8 /CUMM (4.8-10.8)
[2018-01-08 12:02] LABS: PT 37.3 SEC (9.4-12.5); PTT 47 SEC (25-37)
--- NOTE | 2018-01-08 13:28 | ULTRASOUND REPORT ---
EXAMINATION: ULTRASOUND PELVIC, COMPLETE CLINICAL INFORMATION: Vaginal bleeding. COMPARISON: None. TECHNIQUE: Transabdominal and transvaginal imaging was performed. Transvaginal imaging was performed for further evaluation of the endometrium and adnexa. FINDINGS: The uterus is of normal size and echogenicity measuring 7.8 x 4.0 x 5.0 cm. Evaluation of the endometrium is limited secondary to patient positioning; however, the endometrium appears homogeneous and regular measuring approximately 8 mm. There are no mass lesions identified. There is no fluid within the individual cavity. The cervical length is 2.7 cm. Neither ovary is identified. There are no adnexal mass lesions. There is no pelvic free fluid. IMPRESSION: Slightly limited exam due to patient positioning; however, no endometrial mass lesions or fluid demonstrable. Neither ovary identified. No adnexal masses identified.
--- NOTE | 2018-01-08 13:54 | RADIOLOGY REPORT ---
EXAMINATION: CHEST 1 VIEW CLINICAL INFORMATION: Shortness of breath. COMPARISON: 01/19/2017. TECHNIQUE: An AP view of the chest is provided. FINDINGS: The cardiac silhouette is enlarged, though stable. Intact midline sternal wires are present. There is diffuse interstitial prominence throughout both lungs with nonspecific hazy opacification within the lung bases. There are neither pleural effusions nor pneumothoraces. The osseous structures are stable. IMPRESSION: Stable enlarged cardiac silhouette with mild to moderate vascular congestion. Nonspecific hazy opacification at the right lung base which could correspond to atelectasis or a developing infiltrate.
--- NOTE | 2018-01-08 16:32 | History & Physical ---
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 Patient states she has had some spotting before, but now she states the vaginal bleeding is filling up the bowel. Patient reports she had 3 episodes of diarrhea on Wednesday that were without blood. Patient denies any recent hospitalizations or changes in her Warfarin dosing. Patient states she always wears pads due to vaginal dryness and occasional spotting, which has been intermittent for the past week. Patient states that she utilizes 2-3 L of oxygen during sleep. Patient reports some episodes of chronic coughs, mild shortness of breath and constipation but otherwise denies any chest pain, palpitations, dizziness, lightheadedness, diarrhea, n/v, fevers, chills, and fatigue. Patient follows Dr. Smith (Pulmonology), Dr. Sparrow (Cardiology) and Dr. Godfrey (PCP). Patient does not follow a industrial hire sales assistant currently. Patient last visited Dr. Smith for a routine visit 6 weeks prior. Allergies/Medications Allergies: Coded Allergies: codeine (Severe, RESPIRATORY DISTRESS, HALLUCINATIONS 07/14/15) oxycodone (SHORTNESS OF BREATH 07/14/15) Iodinated Contrast- Oral and IV Dye (Iodinated Contrast Media - IV Dye) (NAUSEA, DIZZINESS 07/14/15) morphine (VOMITING 07/14/15) Uncoded Allergies: FRESH FROZEN PLASMA (UNKNOWN 07/14/15) Past History Travel History Traveled to [place] past 21 day No Medical History Neurological: NONE EENT: NONE Cardiovascular: CAD, hypertension, hyperlipidemia, NSTEMI, S/p Mechanical Mitral Valve Replacement OPEN HEART SURGERY Respiratory: COPD Gastrointestinal: GERD, lower GI bleed Hepatic: NONE Renal: NONE Musculoskeletal: NONE Psychiatric: NONE Endocrine: hypothyroidism Blood Disorders: NONE Cancer(s): NONE GERMINATION WORKER/Reproductive: NONE History of MRSA: No History of VRE: No History of CDIFF: No Surgical History Surgical History: cholecystectomy, BOWEL OBSTRUCTION 3 ABD HERNIA REPAIRS Past Family/Social History Family History Relations & Conditions if any Relation not specified for: *No pertinent family history Psychosocial History Who Do You Live With? self Services at Home: None Primary Language: Tunisian Functional Ability ADLs Independent: dressing, eating, toileting, bathing. Ambulation: independent IADLs Independent: shopping, housework, finances, food prep, telephone, transportation , medication admin. Review of Systems Review of Systems Constitutional: Denies: chills, fever, malaise, weakness. EENTM: Denies: blurred vision. Cardiovascular: Denies: chest pain, orthopena, palpitations. Respiratory: Reports: cough, sputum production (clear). Denies: short of breath. GI: Reports: constipation. Denies: diarrhea. Genitourinary: Reports: hematuria (vaginal bleeding). Denies: dysuria. Musculoskeletal: Denies: joint pain. Skin: Denies: no symptoms. Neurological/Psychological: Denies: headache, numbness. Hematologic/Endocrine: Reports: bleeding. Exam & Diagnostic Data Last 24 Hrs of Vital Signs/I&O Vital Signs Date Time Temp Pulse Resp B/P B/P Pulse O2 O2 Flow FiO2 Mean Ox Delivery Rate 01/08 1821 98.0 67 18 125/68 89 Nasal 2.0L Cannula 01/08 1730 Nasal 2.0L Cannula 01/08 1646 97.7 60 20 142/68 92 Nasal 2.0L Cannula 01/08 1557 97.8 62 20 128/60 94 Nasal 2.0L Cannula 01/08 1332 93 Nasal 2.0L Cannula 01/08 1315 97.9 70 20 140/65 87 Room Air 01/08 1138 93 Room Air 01/08 1105 96.8 81 18 148/83 91 Room Air Intake & Output 01/08 1600 01/08 0800 01/08 0000 Intake Total 0 Output Total 500 Balance -500 Intake, Oral 0 Output, Urine 500 Physical Exam General Appearance Alert, Oriented X3, Cooperative, No Acute Distress Skin No Rashes, No Breakdown Skin Temp/Moisture Exam: Warm/Dry HEENT Atraumatic Neck Supple, No JVD Cardiovascular Regular Rate, Normal S1, Normal S2 Lungs Clear to Auscultation, Normal Air Movement Abdomen Soft, No Tenderness Neurological Normal Speech Extremities +1 pedal edema Assessment/Plan Assessment: Transvaginal U/S- Slightly limited exam due to patient positioning; however, no endometrial mass lesions or fluid demonstrable. Neither ovary identified. No adnexal masses identified. CXR - Stable enlarged cardiac silhouette with mild to moderate vascular congestion. Nonspecific hazy opacification at the right lung base which could correspond to atelectasis or a developing infiltrate. 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 Patient received Furosemide IV 40 mg and SoluMedrol IV 125 mg in the emergency department. Labs on Admission: pBNP 474 (highest 1130 in 2016); Cr 0.7; K+ 4.3; H/H 14.2/ 43.7; WBC 6.8 Patient has been admitted to the telemetry floor for the following reasons: #Vaginal bleeding, with some shortness of breath on 2-3 L Oxygen during sleep, currently on Coumadin -Admitted to telemetry for monitoring of vitals -Serial Troponins/EKG -Monitor H/H; H/H 14.2/43.7 on admission -PT/INR; follow up daily -Will continue the anticoagulation due to history of valvular heart disease -Will assess requirement for an GENETICIST consultation if no improvement or progression of bleeding #Hx. Mitral Valve Replacement on Coumadin -Continuing Warfarin home dose: Warfarin 4 mg qMonday; Warfarin 3 mg qSund, , #Home medications -Continue home medications as required Code Status: Full Code Heart Healthy Diet DVT PPx. As Ranked By This Provider Problem List: 1. Vaginal bleeding 2. Shortness of breath 3. S/P heart valve replacement with mechanical valve Core Measures/Misc (01/03) Acute Coronary Syndrome ACS Diagnosis: No Congestive Heart Failure Congestive Heart Failure Diagnosis No Cerebrovascular Accident CVA/TIA Diagnosis: No VTE (View Protocol) VTE Risk Factors Acute Medical Illness No Mechanical VTE Prophylaxis d/t N/A MechProphylax Ordered No VTE Pharm Prophylaxis d/t NA PharmProphylax ordered Sepsis (View protocol) Sepsis Present: No If YES complete Sepsis Event Note If YES complete Sepsis Event Note Chary WICK, 01/08/18 0925: General Information and HPI Allergies/Medications Home Med list Albuterol Sulfate (Proair Hfa) 90 MCG HFA.AER.AD 2 PUF INH Q4-6 PRN PRN SHORTNESS OF BREATH Aspirin (Aspirin*) 81 MG TAB.CHEW 1 TAB PO DAILY CAD (Reported) Atorvastatin Calcium 40 MG TABLET 1 TAB PO DAILY HIGH CHOLESTEROL (Reported) Fluticasone Propionate (Flovent Hfa) 110 MCG/ACTUATION AER.W.ADAP 2 PUF INH BID COPD (Reported) Furosemide (Lasix) 40 MG TABLET 40 MG PO DAILY fluid overload Take 1 tablet twice a day from 10/13-10/18/16, then take 1 talet daily . Levothyroxine Sodium 88 MCG TABLET 1 TAB PO DAILY HYPOTHRYOIDISM (Reported) Loratadine 10 MG TABLET 10 MG PO DAILY COPD . Metoprolol Succinate 50 MG TAB.ER.24H 1 TAB PO DAILY CAD (Reported) Montelukast Sodium (Singulair) 10 MG TABLET 1 TAB PO DAILY DAILY (Reported) Potassium Chloride 20 MEQ TAB.ER.PRT 1 TAB PO DAILY supplement Valsartan 160 MG TABLET 1 TAB PO DAILY HTN (Reported) Warfarin Sodium (Coumadin) 4 MG TABLET 1 TAB PO QMON BLOOD THINNER (Reported) WEDNESDAY, WEDNESDAY, WEDNESDAY Warfarin Sodium (Coumadin) 3 MG TABLET 1 TAB PO SUN BLOOD THINNER ( Reported) WEDNESDAY, WEDNESDAY, WEDNESDAY, WEDNESDAY Core Measures/Misc (01/03) Sepsis (View protocol) If YES complete Sepsis Event Note If YES complete Sepsis Event Note Resident Review Statement Resident Statement: examined this patient, discussed with marketing research intern, agreed with marketing research intern Other Findings: 77-year-old female with past medical history of hypertension, hyperlipidemia, pulmonary hypertension, previous tobacco use, asthmatic, coronary artery disease , mitral valve 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 Patient was in usual state of health until last evening following which patient had vaginal bleeding. Today morning patient continued having spotting and vaginal bleeding with no clots. According to her the bleeding was the same didn't get worse. Since she is on Coumadin she brought herself to [place] ED. Patient endorses having on and off vaginal spotting for the past 1 week. At baseline patient uses 2-3 L of oxygen at bedtime. She is independent and not using cane or walker. She lives with her significant other. Her primary care physician is Dr. Smith and she sees a kick boxer at [facility] Patient denies chest pain, palpitation, nausea, vomiting, fever, recent antibiotic use, [id number] medication use, fall, abdominal pain, blood in urine, stool. Patient has on and off constipation. Social history-remote history of smoking. Denies alcohol use. Family history-noncontributory Lives with her significant other. Last she saw Dr. Smith 6 weeks ago and found to have normal blood work. Vital signs Temperature 98, pulse rate 67, respiratory rate 20, blood pressure 125/68, saturating 92 on 2 L of oxygen Labs WBC 6.8, hemoglobin 14.2, platelet count 247, sodium 139, potassium 4.3, creatinine 0.7 ProBNP 474, troponin 0.01 Echo cardiogram in 2017 ejection fraction of 60% with no regional wall motion abnormality Right 20 to systolic pressure 45 mmHg Imaging ED transvaginal ultrasound Slightly limited exam due to patient positioning; however, no endometrial mass lesions or fluid demonstrable. Neither ovary identified. No adnexal masses identified. Chest x-ray Stable enlarged cardiac silhouette with mild to moderate vascular congestion. Nonspecific hazy opacification at the right lung base which could correspond to atelectasis or a developing infiltrate. ED treatment Nebulization with ipratropium and albuterol Lasix 40 mg IV once Solu-Medrol 125 mg IV once Home medication Aspirin Atorvastatin 40 mg Albuterol and fluticasone Lasix 40 daily Levothyroxine 88 g Metoprolol 50 daily Valsartan 160 mg daily Warfarin 4 mg on Wednesday, Wednesday, Wednesday 2 mg every other day. On examination patient was sitting in her bed on 2 L of oxygen in no acute distress Head to toe-normal Cardiovascular system-S1 and S2 no murmur respiratory system-normal vesicular breath sounds. Abdomen-soft obese Lower extremity-+1 pedal edema External examination of her vaginal-evidence of spotting. No prolapse. Assessment and plan 1. Vaginal bleeding 2. Shortness of breath-CHF/COPD exacerbation * Admitted in telemetry * Every shift vitals * Watch for any further vaginal bleeding * H&H is stable for now. * If any profuse bleeding or drop in her H&H stat GENETICIST consult. * We will continue Coumadin given her St. Raymond's valve. Patient also requested to be on Coumadin. Meanwhile will get cardiology consult. * Patient was given IV Lasix in view of bibasilar crackles. Patient doesn't look in overt heart failure. * We will continue all her home medications. CODE STATUS-full code
--- NOTE | 2018-01-08 17:23 | Admission Certification ---
Admission Certification Certification Statement - As attending physician, I certify that at the time of - admission, based on clinical presentation, severity of - symptoms, need for further diagnostic testing and - therapeutic interventions, and risk of adverse outcomes - without in-hospital treatment, in my clinical assessment, - this patient requires an acute hospital stay for a minimum - of two nights or longer. I have also considered psychsocial - factors such as support system, advanced age, financial - issues, cognitive issues, and failed out-patient treatments, - past re-admission history, safety of patient, and lack of - compliance as applicable. Specific rationale supporting this admission is: Shortness of breath, vaginal bleeding probable congestive heart failure. Patient on chronic anticoagulation for valvular heart disease
--- NOTE | 2018-01-08 17:29 | PN- Att Addend ---
Attending Addendum Attending Brief Note Covering attending note: 77-year-old white female patient of Dr. Smith. The original reason patient came to the hospital is what looks like vaginal bleeding off and on for several weeks but little bit more frequent in the last 2 days, is bright red. Also is having a little shortness of breath. In the emergency was evaluated and chest x-ray shows moderate vascular congestion. Patient is on chronic anticoagulation with Coumadin for valvular heart disease and rheumatic mitral valve replacement, history of coronary artery disease. Her BNP is slightly elevated. Her chest x- ray again shows moderate vascular congestion. She had a vaginal ultrasound that showed no endometrial lesions. Her hemoglobin and hematocrit are stable, INR is 3.38. Will admit to telemetry get serial troponins monitor H&H and have a DOG CONTROL OFFICER consultation cardiac evaluation. I would not stop the anticoagulation due to her valvular heart disease. Follow-up H&H closely Current Medications Sig/Slade Start time Last Medication Dose Route Stop Time Status Admin Albuterol Sulfate 3 ML ONCE ONE 01/08 1330 DC 01/08 INH 01/08 1331 1332 Furosemide 40 MG ONCE ONE 01/08 1445 DC 01/08 IV 01/08 1446 1502 Furosemide 0 .STK-MED ONE 01/08 1440 DC IV Ipratropium [place] 2.5 ML ONCE ONE 01/08 1330 DC 01/08 INH 01/08 1331 1332 Methylprednisolone 0 .STK-MED ONE 01/08 1701 DC .ROUTE Methylprednisolone 125 MG ONCE ONE 01/08 1615 DC 01/08 IV 01/08 1616 1700 Laboratory Tests 01/08/18 1540: Urine Color PINK H, Urine Clarity HAZY H, Urine pH 7.0, Ur Specific [place] 1.015, Urine Protein NEG, Urine Ketones NEG, Urine Nitrite NEG, Urine Bilirubin NEG, Urine Urobilinogen 0.2, Ur Leukocyte Esterase NEG, Ur Microscopic SEDIMENT EXAMINED, Urine RBC >75 H, Urine WBC RARE, Urine Hemoglobin LARGE H, Urine Glucose NEG 01/08/18 1140: Anion Gap 5, Estimated GFR > 60, BUN/Creatinine Ratio 21.4, Glucose 110 H, Calcium 8.7, Total Bilirubin 0.7, AST 23, ALT 29, Alkaline Phosphatase 93, Troponin I < 0.01, [id number]-[id number]-Sjyafonqekv Pept 474 H, Total Protein 6.8, Albumin 3.6 , Globulin 3.2, Albumin/Globulin Ratio 1.1, PT 37.3 H, INR 3.38 H, APTT 47 H, CBC w Diff NO MAN DIFF REQ, RBC 5.05, MCV 86.6, MCH 28.2, MCHC 32.6 L, RDW 15.8 H, MPV 9.2, Gran % 64.1, Lymphocytes % 25.0, Monocytes % 9.3, Eosinophils % 1.2 , Basophils % 0.4, Absolute Granulocytes 4.3, Absolute Lymphocytes 1.7, Absolute Monocytes 0.6, Absolute Eosinophils 0.1, Absolute Basophils 0 Vital Signs Date Time Temp Pulse Resp B/P B/P Pulse O2 O2 Flow FiO2 Mean Ox Delivery Rate 01/08 1646 97.7 60 20 142/68 92 Nasal 2.0L Cannula 01/08 1557 97.8 62 20 128/60 94 Nasal 2.0L Cannula 01/08 1332 93 Nasal 2.0L Cannula 01/08 1315 97.9 70 20 140/65 87 Room Air 01/08 1138 93 Room Air 01/08 1105 96.8 81 18 148/83 91 Room Air Intake & Output 01/08 1600 Intake Total 0 Output Total 500 Balance -500 Intake, Oral 0 Output, Urine 500
[2018-01-08 18:21] VITALS: BP 125/68
--- NOTE | 2018-01-08 21:34 | Cons- Cardiology ---
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 Her INR was noted to be 3.38. Her senior mechanical estimator is Dr. Jimenez in [place]. She is noted to have decreased oxygen saturation and evidence of vascular congestion. No chest pain. No palpitations. She denies shortness of breath. No diaphoresis. No lightheadedness or dizziness. No nausea or vomiting. She expressed a preference to avoid stopping her warfarin unless absolutely necessary. Allergies/Medications Allergies: Coded Allergies: codeine (Severe, RESPIRATORY DISTRESS, HALLUCINATIONS 07/14/15) oxycodone (SHORTNESS OF BREATH 07/14/15) Iodinated Contrast- Oral and IV Dye (Iodinated Contrast Media - IV Dye) (NAUSEA, DIZZINESS 07/14/15) morphine (VOMITING 07/14/15) Uncoded Allergies: FRESH FROZEN PLASMA (UNKNOWN 07/14/15) Home Med List: Albuterol Sulfate (Proair Hfa) 90 MCG HFA.AER.AD 2 PUF INH Q4-6 PRN PRN SHORTNESS OF BREATH Aspirin (Aspirin*) 81 MG TAB.CHEW 1 TAB PO DAILY CAD (Reported) Atorvastatin Calcium 40 MG TABLET 1 TAB PO DAILY HIGH CHOLESTEROL (Reported) Fluticasone Propionate (Flovent Hfa) 110 MCG/ACTUATION AER.W.ADAP 2 PUF INH BID COPD (Reported) Furosemide (Lasix) 40 MG TABLET 40 MG PO DAILY fluid overload Take 1 tablet twice a day from 10/13-10/18/16, then take 1 talet daily . Levothyroxine Sodium 88 MCG TABLET 1 TAB PO DAILY HYPOTHRYOIDISM (Reported) Loratadine 10 MG TABLET 10 MG PO DAILY COPD . Metoprolol Succinate 50 MG TAB.ER.24H 1 TAB PO DAILY CAD (Reported) Montelukast Sodium (Singulair) 10 MG TABLET 1 TAB PO DAILY DAILY (Reported) Potassium Chloride 20 MEQ TAB.ER.PRT 1 TAB PO DAILY supplement Valsartan 160 MG TABLET 1 TAB PO DAILY HTN (Reported) Warfarin Sodium (Coumadin) 4 MG TABLET 1 TAB PO QMON BLOOD THINNER (Reported) WEDNESDAY, WEDNESDAY, WEDNESDAY Warfarin Sodium (Coumadin) 3 MG TABLET 1 TAB PO SUN BLOOD THINNER ( Reported) WEDNESDAY, WEDNESDAY, WEDNESDAY, WEDNESDAY Current Medications: Current Medications Sig/Slade Start time Last Medication Dose Route Stop Time Status Admin Albuterol Sulfate 2 PUF Q4-6 PRN PRN 01/08 1745 AC INH Albuterol Sulfate 3 ML ONCE ONE 01/08 1330 DC 01/08 INH 01/08 1331 1332 Atorvastatin Calcium 40 MG DAILY 01/09 09 AC PO Fluticasone 2 PUF BID 01/08 2100 AC Propionate INH Furosemide 40 MG DAILY 01/09 900 AC PO Furosemide 40 MG ONCE ONE 01/08 1445 DC 01/08 IV 01/08 1446 1502 Furosemide 0 .STK-MED ONE 01/08 1440 DC IV Ipratropium Ida 2.5 ML ONCE ONE 01/08 1330 DC 01/08 INH 01/08 1331 1332 Levothyroxine Sodium 0.088 MG DAILY AC 01/09 0700 AC PO Loratadine 10 MG DAILY 01/09 09 AC PO Losartan Potassium 50 MG DAILY 01/09 09 AC PO Methylprednisolone 0 .STK-MED ONE 01/08 1701 DC .ROUTE Methylprednisolone 125 MG ONCE ONE 01/08 1615 DC 01/08 IV 01/08 1616 1700 Metoprolol Succinate 50 MG DAILY 01/09 09 AC PO Montelukast Sodium 10 MG DAILY 01/08 1737 AC 01/08 PO 2129 Potassium Chloride 20 MEQ DAILY 01/08 1737 AC PO Warfarin Sodium 4 MG QMON 01/10 09 DC PO Warfarin Sodium 3 MG SUN 01/09 09 DC PO Review of Systems Review of Systems: No fever. No chills. No rash. No tremor. No melena. All other systems were reviewed, and were noted to be negative. 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 self Services at Home: None Primary Language: Albanian Smoking Status: Former Smoker Functional Ability ADLs Independent: dressing, eating, toileting, bathing. Ambulation: independent IADLs Independent: shopping, housework, finances, food prep, telephone, transportation , medication admin. Exam & Diagnostic Data Vital Signs and I&O Vital Signs Date Time Temp Pulse Resp B/P B/P Pulse O2 O2 Flow FiO2 Mean Ox Delivery Rate 01/08 1821 98.0 67 18 125/68 89 Nasal 2.0L Cannula 01/08 1730 Nasal 2.0L Cannula 01/08 1646 97.7 60 20 142/68 92 Nasal 2.0L Cannula 01/08 1557 97.8 62 20 128/60 94 Nasal 2.0L Cannula 01/08 1332 93 Nasal 2.0L Cannula 01/08 1315 97.9 70 20 140/65 87 Room Air 01/08 1138 93 Room Air 01/08 1105 96.8 81 18 148/83 91 Room Air Intake & Output 01/08 1600 01/08 0800 01/08 0000 01/07 1600 01/07 0800 01/07 0000 Intake Total 0 Output Total 500 Balance -500 Intake, Oral 0 Output, Urine 500 Physical Exam: Gen: The patient is in no acute distress HEENT: Normal nose, ears, and oropharynx. Pupils equal bilaterally. Conjunctiva normal. Neck: Supple with no JVD, no masses, and no thyromegaly Lungs: Scattered rales with normal respiratory effort Heart: RRR, S1, S2, mechanical mitral valve sounds. 2+ peripheral edema, 2+ pulses in the lower extremities bilaterally Abdomen: Soft, nontender, no masses. No hepatomegaly. No splenomegaly Extremities: No clubbing or cyanosis. Normal muscle strength in the upper and lower extremities Skin: Normal skin turgor with no skin ulcers or lesions noted. Neuro: Cranial nerves intact. Sensation intact Psych: Alert and oriented x 3 with appropriate affect Labs/Bertrand Results: Laboratory Tests 01/08 01/08 1540 1140 Chemistry Sodium (137 - 145 mmol/L) 139 Potassium (3.5 - 5.1 mmol/L) 4.3 Chloride (98 - 107 mmol/L) 105 Carbon Dioxide (22 - 30 mmol/L) 29 Anion Gap (5 - 16) 5 BUN (7 - 17 mg/dL) 15 Creatinine (0.5 - 1.0 mg/dL) 0.7 Estimated GFR (>60 ml/min) > 60 BUN/Creatinine Ratio (7 - 25 %) 21.4 Glucose (65 - 99 mg/dL) 110 H Calcium (8.4 - 10.2 mg/dL) 8.7 Total Bilirubin (0.2 - 1.3 mg/dL) 0.7 AST (14 - 36 U/L) 23 ALT (9 - 52 U/L) 29 Alkaline Phosphatase (<127 U/L) 93 Troponin I (< 0.11 ng/ml) < 0.01 [id number]-Knlmezzdgsd Pept (<125 pg/mL) 474 H Total Protein (6.3 - 8.2 g/dL) 6.8 Albumin (3.5 - 5.0 g/dL) 3.6 Globulin (1.9 - 4.2 gm/dL) 3.2 Albumin/Globulin Ratio (1.1 - 2.2 %) 1.1 Coagulation PT (9.4 - 12.5 SEC) 37.3 H INR (0.90 - 1.19) 3.38 H APTT (25 - 37 SEC) 47 H Hematology CBC w Diff NO MAN DIFF REQ WBC (4.8 - 10.8 /CUMM) 6.8 RBC (4.20 - 5.40 /CUMM) 5.05 Hgb (12.0 - 16.0 G/DL) 14.2 Hct (37 - 47 %) 43.7 MCV (81.0 - 99.0 FL) 86.6 MCH (27.0 - 31.0 PG) 28.2 MCHC (33.0 - 37.0 G/DL) 32.6 L RDW (11.5 - 14.5 %) 15.8 H Plt Count (130 - 400 /CUMM) 247 MPV (7.4 - 10.4 FL) 9.2 Gran % (42.2 - 75.2 %) 64.1 Lymphocytes % (20.5 - 51.1 %) 25.0 Monocytes % (1.7 - 9.3 %) 9.3 Eosinophils % (0 - 5 %) 1.2 Basophils % (0.0 - 2.0 %) 0.4 Absolute Granulocytes (1.4 - 6.5 /CUMM) 4.3 Absolute Lymphocytes (1.2 - 3.4 /CUMM) 1.7 Absolute Monocytes (0.10 - 0.60 /CUMM) 0.6 Absolute Eosinophils (0.0 - 0.7 /CUMM) 0.1 Absolute Basophils (0.0 - 0.2 /CUMM) 0 Urines Urine Color (YEL,AMB,STR) PINK H Urine Clarity (CLEAR) HAZY H Urine pH (5.0 - 8.0) 7.0 Ur Specific [place] (1.001 - 1.035) 1.015 Urine Protein (NEG,<30 MG/DL) NEG Urine Ketones (NEG) NEG Urine Nitrite (NEG) NEG Urine Bilirubin (NEG) NEG Urine Urobilinogen (0.1 - 1.0 EU/dl) 0.2 Ur Leukocyte Esterase (NEG) NEG Ur Microscopic SEDIMENT EXAMINED Urine RBC (0 - 5 /HPF) >75 H Urine WBC (0 - 2 /HPF) RARE Urine Hemoglobin (NEG) LARGE H Urine Glucose (N MG/DL) NEG Diagnostic Data EKG Results EKG tracing is independently reviewed, and reveals normal sinus rhythm at 65 with low voltage in the precordial leads CXR Results Stable enlarged cardiac silhouette with mild to moderate vascular congestion. Nonspecific hazy opacification at the right lung base which could correspond to atelectasis or a developing infiltrate. Other Results Echocardiogram 10/11/16: Normal size left ventricle. Mild concentric left ventricular hypertrophy. Abnormal septal motion consistent with postoperative state. No other obvious regional wall motion abnormalities. Normal left ventricular ejection fraction visually estimated at > 60%. Right ventricle at upper limits of normal. Mild to moderate atrial dilatation. Gradient recorded across the prosthetic mitral valve within the expected range. Trace tricuspid regurgitation. Mild pulmonary hypertension. Mildly dilated inferior vena cava. Assessment/Plan Assessment/Plan The patient is a 77-year-old female with history of mechanical mitral valve presented because of vaginal bleeding. She is noted to have decreased oxygen saturation, and chest x-ray findings consistent with acute on chronic diastolic heart failure. INR is within the therapeutic range. Hemoglobin and hematocrit are normal. Recommendations: * Would diurese with Lasix 40 mg IV every 12 hours * Monitor input and output with daily weights * Given the presence of the mechanical valve, would recommend continuing her usual dose of warfarin as long as the vaginal bleeding remains mild. She is due for 2 mg of warfarin today. * Echocardiogram Consult Acknowledgment - Thank you for your consult request.
[2018-01-08 22:22] VITALS: BP 132/70
[2018-01-09 06:51] VITALS: BP 132/54
[2018-01-09 08:59] LABS: PT 39.5 SEC (9.4-12.5)
[2018-01-09 09:00] LABS: ABSOLUTE BASOPHIL COUNT 0 /CUMM (0.0-0.2); ABSOLUTE EOSINOPHIL COUNT 0 /CUMM (0.0-0.7); ABSOLUTE GRANULOCYTE CT 7.8 /CUMM (1.4-6.5); ABSOLUTE MONOCYTE COUNT 0.2 /CUMM (0.10-0.60); BASOPHIL % 0 % (0.0-2.0); EOSINOPHIL % 0 % (0-5); GRANULOCYTE % 86.6 % (42.2-75.2); HEMATOCRIT 43.7 % (37-47); MEAN CORPUSCULAR HGB 28.3 PG (27.0-31.0); MEAN CORPUSCULAR HGB CONC 32.7 G/DL (33.0-37.0); MEAN CORPUSCULAR VOLUME 86.5 FL (81.0-99.0); MEAN PLATELET VOLUME 9.9 FL (7.4-10.4); PLATELET COUNT 242 /CUMM (130-400); RED BLOOD CELL CT 5.05 /CUMM (4.20-5.40)
--- NOTE | 2018-01-09 14:48 | PN- Cardiology ---
Subjective Subjective: Feeling better. No current shortness of breath. No chest pain. Vaginal bleeding has improved. Note palpitations. No diaphoresis. Objective Vital Signs and I&Os Vital Signs Date Time Temp Pulse Resp B/P B/P Pulse O2 O2 Flow FiO2 Mean Ox Delivery Rate 01/09 0830 74 132/54 01/09 0829 74 132/54 01/09 0800 92 Nasal 2.0L Cannula 01/09 0651 98.4 74 20 132/54 91 Nasal 2.0L Cannula 01/08 2222 98.7 73 20 132/70 92 Nasal 2.0L Cannula 01/08 1821 98.0 67 18 125/68 89 Nasal 2.0L Cannula 01/08 1730 Nasal 2.0L Cannula 01/08 1646 97.7 60 20 142/68 92 Nasal 2.0L Cannula 01/08 1557 97.8 62 20 128/60 94 Nasal 2.0L Cannula Intake & Output 01/09 1600 01/09 0800 01/09 0000 01/08 1600 01/08 0800 01/08 0000 Intake Total 240 120 0 Output Total 500 500 Balance 240 -380 -500 Intake, Oral 240 120 0 Output, Urine 500 500 Patient 236 lb Weight Physical Exam: Gen: The patient is in no acute distress HEENT: Normal nose, ears, and oropharynx. Pupils equal bilaterally. Conjunctiva normal. Neck: Supple with no JVD, no masses, and no thyromegaly Lungs: Scattered rales with normal respiratory effort Heart: RRR, S1, S2, mechanical mitral valve sounds. 2+ peripheral edema, 2+ pulses in the lower extremities bilaterally Abdomen: Soft, nontender, no masses. No hepatomegaly. No splenomegaly Extremities: No clubbing or cyanosis. Normal muscle strength in the upper and lower extremities Skin: Normal skin turgor with no skin ulcers or lesions noted. Neuro: Cranial nerves intact. Sensation intact Psych: Alert and oriented x 3 with appropriate affect Current Medications: Current Medications Sig/Slade Start time Last Medication Dose Route Stop Time Status Admin Albuterol Sulfate 2 PUF Q4-6 PRN PRN 01/08 1745 AC INH Atorvastatin Calcium 40 MG QPM 01/09 2100 DC PO Atorvastatin Calcium 40 MG DAILY 01/09 0900 DC PO Atorvastatin Calcium 40 MG QPM 01/08 2315 AC 01/08 PO 2327 Fluticasone 2 PUF 1130,01/09 1130 AC 01/09 Propionate INH 1131 Fluticasone 2 PUF BID 01/08 2100 DC Propionate INH Furosemide 40 MG DAILY 01/09 0900 CAN PO Furosemide 40 MG 0700,1500 01/09 0700 AC 01/09 IV 1440 Furosemide 40 MG ONCE ONE 01/08 1445 DC 01/08 IV 01/08 1446 1502 Levothyroxine Sodium 0.088 MG DAILY AC 01/09 0700 AC 01/09 PO 0644 Loratadine 10 MG DAILY 01/09 0900 AC 01/09 PO 0829 Losartan Potassium 50 MG DAILY 01/09 0900 AC 01/09 PO 0829 Methylprednisolone 0 .STK-MED ONE 01/08 1701 DC .ROUTE Methylprednisolone 125 MG ONCE ONE 01/08 1615 DC 01/08 IV 01/08 1616 1700 Metoprolol Succinate 50 MG DAILY 01/09 0900 AC 01/09 PO 0830 Montelukast Sodium 10 MG QPM 01/09 2100 AC PO Montelukast Sodium 10 MG DAILY 01/08 1737 DC 01/08 PO 2129 Potassium Chloride 20 MEQ DAILY 01/08 1737 AC 01/09 PO 0829 Tiotropium [place] 1 PUF 1400 01/09 1400 AC 01/09 INH 1440 Warfarin Sodium 4 MG QMON 01/10 0900 DC PO Warfarin Sodium 3 MG COUMADIN 1700 ONE 01/09 1700 AC PO 01/09 1701 Warfarin Sodium 3 MG SUN TUES THUR 01/09 0900 DC PO Warfarin Sodium 2 MG ONCE ONE 01/08 2230 DC 01/08 PO 01/08 2231 2318 Results Last 48 Hrs of Labs/Mics: Laboratory Tests 01/09/18 0715: Anion Gap 8, Estimated GFR > 60, BUN/Creatinine Ratio 25.7 H, Magnesium 2.1, PT 39.5 H, INR 3.58 H, CBC w Diff NO MAN DIFF REQ, RBC 5.05, MCV 86.5, MCH 28.3, MCHC 32.7 L, RDW 16.0 H, MPV 9.9, Gran % 86.6 H, Lymphocytes % 11.4 L, Monocytes % 2.0, Eosinophils % 0, Basophils % 0, Absolute Granulocytes 7.8 H, Absolute Lymphocytes 1.0 L, Absolute Monocytes 0.2, Absolute Eosinophils 0, Absolute Basophils 0 01/08/18 1540: Urine Color PINK H, Urine Clarity HAZY H, Urine pH 7.0, Ur Specific [place] 1.015, Urine Protein NEG, Urine Ketones NEG, Urine Nitrite NEG, Urine Bilirubin NEG, Urine Urobilinogen 0.2, Ur Leukocyte Esterase NEG, Ur Microscopic SEDIMENT EXAMINED, Urine RBC >75 H, Urine WBC RARE, Urine Hemoglobin LARGE H, Urine Glucose NEG 01/08/18 1140: Anion Gap 5, Estimated GFR > 60, BUN/Creatinine Ratio 21.4, Glucose 110 H, Calcium 8.7, Total Bilirubin 0.7, AST 23, ALT 29, Alkaline Phosphatase 93, Troponin I < 0.01, [id number] Pept 474 H, Total Protein 6.8, Albumin 3.6 , Globulin 3.2, Albumin/Globulin Ratio 1.1, PT 37.3 H, INR 3.38 H, APTT 47 H, CBC w Diff NO MAN DIFF REQ, RBC 5.05, MCV 86.6, MCH 28.2, MCHC 32.6 L, RDW 15.8 H, MPV 9.2, Gran % 64.1, Lymphocytes % 25.0, Monocytes % 9.3, Eosinophils % 1.2 , Basophils % 0.4, Absolute Granulocytes 4.3, Absolute Lymphocytes 1.7, Absolute Monocytes 0.6, Absolute Eosinophils 0.1, Absolute Basophils 0 Assessment/Plan Assessment/Plan Assessment: 1. Mechanical mitral valve 2. Vaginal bleeding, with stable hemoglobin and hematocrit. INR therapeutic 3. Acute on chronic HFpEF Plan: * Continue IV Lasix today, consider changing to p.o. tomorrow * Monitor input and output * Dose warfarin for INR 2-3 * Echocardiogram pending Continue telemetry? Yes
[2018-01-09 15:45] VITALS: BP 90/52
--- NOTE | 2018-01-09 17:37 | PN- Att Addend ---
Attending Addendum Attending Brief Note Patient feeling better today not short of breath at rest. The next maybe look a little less edematous. After getting a dose of diuretic and urinating a lot she noticed again some bleeding through the vagina. Maybe the bleeding is more urological in origin done [place]. Should have consultations with urology and gynecology. Vital signs are stable no fever. No other changes on physical examination. Her H&H is stable. Appreciate cardiology's input and recommendations. Dr. Smith will be back tomorrow and decide if the patient is stable to go home and if the workup for the bleeding can be done as an outpatient should be done while she is in the hospital. 24 TOTALS 01/09 0000 01/08 0000 Intake Total 120 Output Total 1000 Balance -880 Intake, Oral 120 Output, Urine 1000 Patient 236 lb Weight Current Medications Sig/Slade Start time Last Medication Dose Route Stop Time Status Admin Albuterol Sulfate 2 PUF Q4-6 PRN PRN 01/08 1745 AC INH Atorvastatin Calcium 40 MG QPM 01/09 2100 DC PO Atorvastatin Calcium 40 MG DAILY 01/09 0900 DC PO Atorvastatin Calcium 40 MG QPM 01/08 2315 AC 01/08 PO 2327 Fluticasone 2 PUF 1130,2100 01/09 1130 AC 01/09 Propionate INH 1131 Fluticasone 2 PUF BID 01/08 2100 DC Propionate INH Furosemide 40 MG DAILY 01/09 0900 CAN PO Furosemide 40 MG 0700,1500 01/09 0700 AC 01/09 IV 1440 Levothyroxine Sodium 0.088 MG DAILY AC 01/09 0700 AC 01/09 PO 0644 Loratadine 10 MG DAILY 01/09 0900 AC 01/09 PO 0829 Losartan Potassium 50 MG DAILY 01/09 0900 AC 01/09 PO 0829 Metoprolol Succinate 50 MG DAILY 01/09 0900 AC 01/09 PO 0830 Montelukast Sodium 10 MG QPM 01/09 2100 AC PO Montelukast Sodium 10 MG DAILY 01/08 1737 DC 01/08 PO 2129 Polyethylene Glycol 17 GM DAILY 01/09 1515 AC 01/09 PO 1715 Potassium Chloride 20 MEQ DAILY 01/08 1737 AC 01/09 PO 0829 Senna/Docusate Sodium 1 TAB BID PRN 01/09 1515 AC PO Tiotropium [place] 1 PUF 1400 01/09 1400 AC 01/09 INH 1440 Warfarin Sodium 4 MG QMON 01/10 09 DC PO Warfarin Sodium 3 MG COUMADIN 1700 ONE 01/09 1700 DC PO 01/09 1701 Warfarin Sodium 3 MG SUN TUES THUR 01/09 900 DC PO Warfarin Sodium 2 MG ONCE ONE 01/08 2230 DC 01/08 PO 01/08 2231 2318 Laboratory Tests 01/09/18 0715: Anion Gap 8, Estimated GFR > 60, BUN/Creatinine Ratio 25.7 H, Magnesium 2.1, PT 39.5 H, INR 3.58 H, CBC w Diff NO MAN DIFF REQ, RBC 5.05, MCV 86.5, MCH 28.3, MCHC 32.7 L, RDW 16.0 H, MPV 9.9, Gran % 86.6 H, Lymphocytes % 11.4 L, Monocytes % 2.0, Eosinophils % 0, Basophils % 0, Absolute Granulocytes 7.8 H, Absolute Lymphocytes 1.0 L, Absolute Monocytes 0.2, Absolute Eosinophils 0, Absolute Basophils 0 01/08/18 1540: Urine Color PINK H, Urine Clarity HAZY H, Urine pH 7.0, Ur Specific [place] 1.015, Urine Protein NEG, Urine Ketones NEG, Urine Nitrite NEG, Urine Bilirubin NEG, Urine Urobilinogen 0.2, Ur Leukocyte Esterase NEG, Ur Microscopic SEDIMENT EXAMINED, Urine RBC >75 H, Urine WBC RARE, Urine Hemoglobin LARGE H, Urine Glucose NEG 01/08/18 1140: Anion Gap 5, Estimated GFR > 60, BUN/Creatinine Ratio 21.4, Glucose 110 H, Calcium 8.7, Total Bilirubin 0.7, AST 23, ALT 29, Alkaline Phosphatase 93, Troponin I < 0.01, Gqk-S-Isfanukfwng Pept 474 H, Total Protein 6.8, Albumin 3.6 , Globulin 3.2, Albumin/Globulin Ratio 1.1, PT 37.3 H, INR 3.38 H, APTT 47 H, CBC w Diff NO MAN DIFF REQ, RBC 5.05, MCV 86.6, MCH 28.2, MCHC 32.6 L, RDW 15.8 H, MPV 9.2, Gran % 64.1, Lymphocytes % 25.0, Monocytes % 9.3, Eosinophils % 1.2 , Basophils % 0.4, Absolute Granulocytes 4.3, Absolute Lymphocytes 1.7, Absolute Monocytes 0.6, Absolute Eosinophils 0.1, Absolute Basophils 0 Vital Signs Date Time Temp Pulse Resp B/P B/P Pulse O2 O2 Flow FiO2 Mean Ox Delivery Rate 01/09 1545 97.8 71 20 90/52 94 Nasal Cannula 01/09 0830 74 132/54 01/09 0829 74 132/54 01/09 0800 92 Nasal 2.0L Cannula 01/09 0651 98.4 74 20 132/54 91 Nasal 2.0L Cannula 01/08 2222 98.7 73 20 132/70 92 Nasal 2.0L Cannula 01/08 1821 98.0 67 18 125/68 89 Nasal 2.0L Cannula
[2018-01-09 22:43] VITALS: BP 106/64
[2018-01-10 06:41] VITALS: BP 96/56
--- NOTE | 2018-01-10 07:55 | PN- Housestaff ---
Subjective Follow-up For: Vaginal bleeding Hx. Mitral Valve replacement on Coumadin Subjective: Afebrile overnight. Patient is seen and examined this morning. Patient states she has felt constipated with her last bowel movement being on . Patient denies any shortness of breath, chest pain, palpitations, headaches, lightheadedness, and n/v. Patient states she feels her bleeding overall has decreased but with the lasix medication it has increased since she is urinating more often. Review of Systems Constitutional: Reports: see HPI. Objective Last 24 Hrs of Vital Signs/I&O Vital Signs Date Time Temp Pulse Resp B/P B/P Pulse O2 O2 Flow FiO2 Mean Ox Delivery Rate 01/10 1351 97.5 61 20 122/70 95 Nasal Cannula 01/10 1025 98.0 60 18 112/64 01/10 1024 98.0 60 18 112/64 01/10 0800 95 Nasal 2.0L Cannula 01/10 0641 98.0 60 18 96/56 93 Nasal Cannula 01/10 0000 Nasal 2.0L Cannula 01/09 2243 97.9 62 18 106/64 93 Nasal Cannula 01/09 1600 Nasal 2.0L Cannula Intake & Output 01/10 1600 01/10 0800 01/10 0000 Intake Total 480 450 Output Total 695 167 9407 Balance -420 -700 -700 Intake, Oral 480 450 Output, Urine 674 800 1369 Patient 237 lb Weight Weight Bed scale Measurement Method Physical Exam General Appearance: Alert, Oriented X3, Cooperative, No Acute Distress Skin: No Rashes, No Breakdown Skin Temp/Moisture Exam: Warm/Dry HEENT: Atraumatic Neck: Supple, No JVD Cardiovascular: Regular Rate, Normal S1, Normal S2 Lungs: Clear to Auscultation Abdomen: Soft, No Tenderness Neurological: Normal Speech Extremities: No Edema, Normal Pulses Assessment/Plan Assessment: Transvaginal U/S- Slightly limited exam due to patient positioning; however, no endometrial mass lesions or fluid demonstrable. Neither ovary identified. No adnexal masses identified. CXR - Stable enlarged cardiac silhouette with mild to moderate vascular congestion. Nonspecific hazy opacification at the right lung base which could correspond to atelectasis or a developing infiltrate. ECHO 2016 - Ejection fraction of 60% with no regional wall motion abnormality 77 YO F with a past medical history of hypertension, hyperlipidemia, pulmonary hypertension, former smoker, asthma, mitral valve replacement [[place] valve] on warfarin, hypothyroidism, previous GI bleed, CAD post CABG came who came to the emergency department today with a chief complaint of "vaginal bleeding" that has been worsening over the past two days. Patient received Furosemide IV 40 mg and SoluMedrol IV 125 mg in the emergency department. Labs on Admission: pBNP 474 (highest 1130 in 2016); Cr 0.7; K+ 4.3; H/H 14.2/ 43.7; WBC 6.8 Patient has been admitted to the telemetry floor for the following reasons: #Vaginal bleeding, with some shortness of breath on 2-3 L Oxygen during sleep, currently on Coumadin -Admitted to telemetry for monitoring of vitals -Serial Troponins/EKG -Monitor H/H; H/H 14.2/43.7 on admission -PT/INR; follow up daily -Spiriva -Symbicort started 01/10 -Will continue the anticoagulation due to history of valvular heart disease -Consulted gynecology -Consulted urology -CT ABD/Pelvis with oral/rectal/IV contrast scheduled for 01/11 to assess for possiblity of a uterovaginal fistula and premedicating with solumedrol, zofran, and diphenhydramine #Hx. Mitral Valve Replacement on Coumadin -Dose Coumadin daily with goal INR 2.5-3.5 -Patients home dosage of Warfarin: Warfarin 4 mg qMonday/Wednesday/Wednesday with 2 mg every other day #Home medications -Continue home medications as required Code Status: Full Code Heart Healthy Diet DVT PPx. Problem List: 1. Vaginal bleeding 2. Shortness of breath Pain Ratin Pain Location: na Pain Goal: Remain pain free Pain Plan: prn meds Tomorrow's Labs & Rationales: routine
[2018-01-10 08:28] LABS: PT 38.4 SEC (9.4-12.5)
--- NOTE | 2018-01-10 11:11 | PN- Cardiology ---
Subjective Subjective: The patient notes that she had mild recurrence of vaginal bleeding overnight. No chest pain. No shortness of breath. No palpitations. No diaphoresis. Objective Vital Signs and I&Os Vital Signs Date Time Temp Pulse Resp B/P B/P Pulse O2 O2 Flow FiO2 Mean Ox Delivery Rate 01/10 1025 98.0 60 18 112/64 01/10 1024 98.0 60 18 112/64 01/10 0641 98.0 60 18 96/56 93 Nasal Cannula 01/10 0000 Nasal 2.0L Cannula 01/09 2243 97.9 62 18 106/64 93 Nasal Cannula 01/09 1600 Nasal 2.0L Cannula 01/09 1545 97.8 71 20 90/52 94 Nasal Cannula Intake & Output 01/10 1600 01/10 0800 01/10 0000 01/09 1600 01/09 0800 01/09 0000 Intake Total 450 420 240 120 Output Total 104 309 2815 1100 500 Balance -600 -700 -700 -680 240 -380 Intake, IV 20 Intake, Oral 450 400 240 120 Output, Urine 274 135 4748 1100 500 Patient 237 lb 236 lb Weight Weight Bed scale Measurement Method Physical Exam: Gen: The patient is in no acute distress HEENT: Normal nose, ears, and oropharynx. Pupils equal bilaterally. Conjunctiva normal. Neck: Supple with no JVD, no masses, and no thyromegaly Lungs: Scattered rales with normal respiratory effort Heart: RRR, S1, S2, mechanical mitral valve sounds. 2+ peripheral edema, 2+ pulses in the lower extremities bilaterally Abdomen: Soft, nontender, no masses. No hepatomegaly. No splenomegaly Extremities: No clubbing or cyanosis. Normal muscle strength in the upper and lower extremities Skin: Normal skin turgor with no skin ulcers or lesions noted. Neuro: Cranial nerves intact. Sensation intact Psych: Alert and oriented x 3 with appropriate affect Current Medications: Current Medications Sig/Slade Start time Last Medication Dose Route Stop Time Status Admin Albuterol Sulfate 2 PUF Q4-6 PRN PRN 01/08 1745 AC INH Atorvastatin Calcium 40 MG QPM 01/08 2315 AC 01/09 PO 1824 Fluticasone 2 PUF 1130,2100 01/09 1130 AC 01/10 Propionate INH 1026 Furosemide 80 MG DAILY 01/11 0900 AC PO Furosemide 40 MG 0700,1500 01/09 0700 DC 01/10 IV 0703 Levothyroxine Sodium 0.088 MG DAILY AC 01/09 0700 AC 01/10 PO 0532 Loratadine 10 MG DAILY 01/09 0900 AC 01/10 PO 1024 Losartan Potassium 50 MG DAILY 01/09 0900 AC 01/09 PO 0829 Metoprolol Succinate 50 MG DAILY 01/09 0900 AC 01/10 PO 1025 Montelukast Sodium 10 MG QPM 01/09 2100 AC 01/09 PO 1820 Polyethylene Glycol 17 GM DAILY 01/09 1515 AC 01/10 PO 1025 Potassium Chloride 20 MEQ DAILY 01/08 1737 AC 01/10 PO 1025 Senna/Docusate Sodium 1 TAB BID PRN 01/09 1515 AC PO Tiotropium [place] 1 PUF 1400 01/09 1400 AC 01/09 INH 1440 Warfarin Sodium 4 MG QMON 01/10 0900 DC PO Warfarin Sodium 2 MG COUMADIN 1700 ONE 01/09 1745 DC 01/09 PO 01/09 1746 1824 Warfarin Sodium 3 MG COUMADIN 1700 ONE 01/09 1700 CAN PO 01/09 1701 Results Last 48 Hrs of Labs/Mics: Laboratory Tests 01/10/18 0645: PT 38.4 H, INR 3.48 H 01/09/18 0715: Anion Gap 8, Estimated GFR > 60, BUN/Creatinine Ratio 25.7 H, Magnesium 2.1, PT 39.5 H, INR 3.58 H, CBC w Diff NO MAN DIFF REQ, RBC 5.05, MCV 86.5, MCH 28.3, MCHC 32.7 L, RDW 16.0 H, MPV 9.9, Gran % 86.6 H, Lymphocytes % 11.4 L, Monocytes % 2.0, Eosinophils % 0, Basophils % 0, Absolute Granulocytes 7.8 H, Absolute Lymphocytes 1.0 L, Absolute Monocytes 0.2, Absolute Eosinophils 0, Absolute Basophils 0 01/08/18 1540: Urine Color PINK H, Urine Clarity HAZY H, Urine pH 7.0, Ur Specific [place] 1.015, Urine Protein NEG, Urine Ketones NEG, Urine Nitrite NEG, Urine Bilirubin NEG, Urine Urobilinogen 0.2, Ur Leukocyte Esterase NEG, Ur Microscopic SEDIMENT EXAMINED, Urine RBC >75 H, Urine WBC RARE, Urine Hemoglobin LARGE H, Urine Glucose NEG 01/08/18 1140: Anion Gap 5, Estimated GFR > 60, BUN/Creatinine Ratio 21.4, Glucose 110 H, Calcium 8.7, Total Bilirubin 0.7, AST 23, ALT 29, Alkaline Phosphatase 93, Troponin I < 0.01, Mdh-L-Sajkmhpulro Pept 474 H, Total Protein 6.8, Albumin 3.6 , Globulin 3.2, Albumin/Globulin Ratio 1.1, PT 37.3 H, INR 3.38 H, APTT 47 H, CBC w Diff NO MAN DIFF REQ, RBC 5.05, MCV 86.6, MCH 28.2, MCHC 32.6 L, RDW 15.8 H, MPV 9.2, Gran % 64.1, Lymphocytes % 25.0, Monocytes % 9.3, Eosinophils % 1.2 , Basophils % 0.4, Absolute Granulocytes 4.3, Absolute Lymphocytes 1.7, Absolute Monocytes 0.6, Absolute Eosinophils 0.1, Absolute Basophils 0 Assessment/Plan Assessment/Plan Assessment: 1. Mechanical mitral valve 2. Vaginal bleeding, with stable hemoglobin and hematocrit. INR therapeutic 3. Acute on chronic HFpEF Plan: * Would change Lasix to 60 mg p.o. daily * Dose warfarin for INR 2-3 * Echocardiogram pending * LINE LEAD to be consulted regarding vaginal bleed Continue telemetry? No
--- NOTE | 2018-01-10 13:24 | PN- Pulmonary ---
Subjective HPI/Critical Care Issues: The patient notes that she had mild recurrence of vaginal bleeding overnight. No chest pain. No shortness of breath. No palpitations. No diaphoresis. Objective Current Medications: Current Medications Sig/Slade Start time Last Medication Dose Route Stop Time Status Admin Albuterol Sulfate 2 PUF Q4-6 PRN PRN 01/08 1745 AC INH Atorvastatin Calcium 40 MG QPM 01/08 2315 AC 01/09 PO 1824 Fluticasone 2 PUF 1130,2100 01/09 1130 AC 01/10 Propionate INH 1026 Furosemide 80 MG DAILY 01/11 0900 AC PO Furosemide 40 MG 0700,1500 01/09 0700 DC 01/10 IV 0703 Levothyroxine Sodium 0.088 MG DAILY AC 01/09 0700 AC 01/10 PO 0532 Loratadine 10 MG DAILY 01/09 0900 AC 01/10 PO 1024 Losartan Potassium 50 MG DAILY 01/09 0900 AC 01/09 PO 0829 Metoprolol Succinate 50 MG DAILY 01/09 0900 AC 01/10 PO 1025 Montelukast Sodium 10 MG QPM 01/09 2100 AC 01/09 PO 1820 Polyethylene Glycol 17 GM DAILY 01/09 1515 AC 01/10 PO 1025 Potassium Chloride 20 MEQ DAILY 01/08 1737 AC 01/10 PO 1025 Senna/Docusate Sodium 1 TAB BID PRN 01/09 1515 AC PO Tiotropium [place] 1 PUF 1400 01/09 1400 AC 01/09 INH 1440 Warfarin Sodium 4 MG QMON 01/10 0900 DC PO Warfarin Sodium 2 MG COUMADIN 1700 ONE 01/09 1745 DC 01/09 PO 01/09 1746 1824 Warfarin Sodium 3 MG COUMADIN 1700 ONE 01/09 1700 CAN PO 01/09 1701 Vital Signs & I&O Last 24 Hrs of Vitals and I&O: Vital Signs Date Time Temp Pulse Resp B/P B/P Pulse O2 O2 Flow FiO2 Mean Ox Delivery Rate 01/10 1025 98.0 60 18 112/64 01/10 1024 98.0 60 18 112/64 01/10 0800 95 Nasal 2.0L Cannula 01/10 0641 98.0 60 18 96/56 93 Nasal Cannula 01/10 0000 Nasal 2.0L Cannula 01/09 2243 97.9 62 18 106/64 93 Nasal Cannula 01/09 1600 Nasal 2.0L Cannula 01/09 1545 97.8 71 20 90/52 94 Nasal Cannula Intake & Output 01/10 1600 01/10 0800 01/10 0000 Intake Total 450 Output Total 065 759 8445 Balance -600 -700 -700 Intake, Oral 450 Output, Urine 388 971 2029 Patient 237 lb Weight Weight Bed scale Measurement Method Laboratory Tests 01/10 01/09 0645 0715 Chemistry Sodium (137 - 145 mmol/L) 139 Potassium (3.5 - 5.1 mmol/L) 4.3 Chloride (98 - 107 mmol/L) 104 Carbon Dioxide (22 - 30 mmol/L) 27 Anion Gap (5 - 16) 8 BUN (7 - 17 mg/dL) 18 H Creatinine (0.5 - 1.0 mg/dL) 0.7 Estimated GFR (>60 ml/min) > 60 BUN/Creatinine Ratio (7 - 25 %) 25.7 H Magnesium (1.6 - 2.3 mg/dL) 2.1 Coagulation PT (9.4 - 12.5 SEC) 38.4 H 39.5 H INR (0.90 - 1.19) 3.48 H 3.58 H Hematology CBC w Diff NO MAN DIFF REQ WBC (4.8 - 10.8 /CUMM) 9.0 RBC (4.20 - 5.40 /CUMM) 5.05 Hgb (12.0 - 16.0 G/DL) 14.3 Hct (37 - 47 %) 43.7 MCV (81.0 - 99.0 FL) 86.5 MCH (27.0 - 31.0 PG) 28.3 MCHC (33.0 - 37.0 G/DL) 32.7 L RDW (11.5 - 14.5 %) 16.0 H Plt Count (130 - 400 /CUMM) 242 MPV (7.4 - 10.4 FL) 9.9 Gran % (42.2 - 75.2 %) 86.6 H Lymphocytes % (20.5 - 51.1 %) 11.4 L Monocytes % (1.7 - 9.3 %) 2.0 Eosinophils % (0 - 5 %) 0 Basophils % (0.0 - 2.0 %) 0 Absolute Granulocytes (1.4 - 6.5 /CUMM) 7.8 H Absolute Lymphocytes (1.2 - 3.4 /CUMM) 1.0 L Absolute Monocytes (0.10 - 0.60 /CUMM) 0.2 Absolute Eosinophils (0.0 - 0.7 /CUMM) 0 Absolute Basophils (0.0 - 0.2 /CUMM) 0 01/08 1540 Urines Urine Color (YEL,AMB,STR) PINK H Urine Clarity (CLEAR) HAZY H Urine pH (5.0 - 8.0) 7.0 Ur Specific [place] (1.001 - 1.035) 1.015 Urine Protein (NEG,<30 MG/DL) NEG Urine Ketones (NEG) NEG Urine Nitrite (NEG) NEG Urine Bilirubin (NEG) NEG Urine Urobilinogen (0.1 - 1.0 EU/dl) 0.2 Ur Leukocyte Esterase (NEG) NEG Ur Microscopic SEDIMENT EXAMINED Urine RBC (0 - 5 /HPF) >75 H Urine WBC (0 - 2 /HPF) RARE Urine Hemoglobin (NEG) LARGE H Urine Glucose (N MG/DL) NEG Impression/Plan Impression/Plan Impression/Plan: Gen: The patient is in no acute distress HEENT: Normal nose, ears, and oropharynx. Pupils equal bilaterally. Conjunctiva normal. Neck: Supple with no JVD, no masses, and no thyromegaly Lungs: Scattered rales with normal respiratory effort Heart: RRR, S1, S2, mechanical mitral valve sounds. 2+ peripheral edema, 2+ pulses in the lower extremities bilaterally Abdomen: Soft, nontender, no masses. No hepatomegaly. No splenomegaly Extremities: No clubbing or cyanosis. Normal muscle strength in the upper and lower extremities Skin: Normal skin turgor with no skin ulcers or lesions noted. Neuro: Cranial nerves intact. Sensation intact Psych: Alert and oriented x 3 with appropriate affect This is a 77-year-old lady with history of hypertension, coronary artery disease with previous CABG and mitral valve replacement for a ruptured papillary muscle emergently done in 2004, now on anticoagulation with warfarin, hypothyroidism on appropriate supplementation, previous recurrent bowel obstruction with mesh surgery for paraumbilical hernia, diverticulitis of the sigmoid history, Issues include * Acute on chronic diastolic heart failure with mild pulmonary edema which shortness of breath improving after Lasix * Vaginal bleeding vs other discharge per vagina vs hematuria with at tiimes airbubbles when she urinates, rule out fistula etc * Coronary artery disease with previous CABG and mitral valve replacement with a metallic valve for Ruptured papillary muscle in 2004 with previous echoes suggestive of normal ejection fraction with diastolic heart. Patient is on appropriate anticoagulation with INR now is 3.48. No clinical evidence of acute coronary syndrome * Morbid obesity with signs and symptoms suggestive of upper airway resistance syndrome patient is not keen on sleep study * Significant pulmonary hypertension related to previous mitral valve disease with probable diastolic heart disease * Mild asthmatic bronchitis with mild COPD with previous history of smoking up until 2004 with no clinical evidence suggestive of significant COPD exacerbation * Hypothyroidism on appropriate supplementation * GERD on appropriate medication * Hyperlipidemia, hypertension, allergic rhinitis relatively stable RECOMMENDATION Continue current meds Daily INR and keep inr more than 2.5-3.5 Cont spirava and other inhalers Continue warfarin keep INR between 2.5-3.5 as she has a metallic valve Start Symbicort 2 puffs twice a day and switch her to Flovent prior to discharge Continue loratadine and montelukast Continue her outpatient blood pressure medications GARNETT FIXER and UROLOGy eval - please call CT abd and pelvis with iv and po contrast to eval for fistula _ask radiology what type of ct abd and pelvis needs to be ordered Pt does have intol to iv contrast and premedicate with prednisone per radiology protocol Wean down oxygen
[2018-01-10 13:51] VITALS: BP 122/70
--- NOTE | 2018-01-10 16:07 | Patient Discharge Instructions ---
Discharge Instructions General Discharge Information You had these procedures: Transvaginal US CT ABD/PELVIS Special Instructions: Please follow up with your PCP within 1-2 weeks. Please follow up with a orthopedic cast specialist within 1-2 weeks. Please continue to take your home medications. Activity Full Activity/No Limits: No Activity Self Limited: Yes Acute Coronary Syndrome Inclusion Criteria At DC or during hospital stay patient has or had the following: ACS DIAGNOSIS No Discharge Core Measures Meds if any: Prescribed or Continued at Discharge Meds if any: NOT Prescribed or Continued at Discharge Congestive Heart Failure Inclusion Criteria At DC or during hospital stay patient has or had the following: CHF DIAGNOSIS No Discharge Core Measures Meds if any: Prescribed or Continued at Discharge Meds if any: NOT Prescribed or Continued at Discharge Cerebrovascular accident Inclusion Criteria At DC or during hospital stay patient has or had the following: CVA/TIA Diagnosis No Discharge Core Measures Meds if any: Prescribed or Continued at Discharge Meds if any: NOT Prescribed or Continued at Discharge Venous thromboembolism Inclusion Criteria VTE Diagnosis No VTE Type NONE VTE Confirmed by (Test) NONE Discharge Core Measures - Per Current guidelines, there needs to be overlap - treatment for the first 5 days of Warfarin therapy. - If discharged on Warfarin prior to 5 days of - overlap therapy, the patient will need to be - assessed for post discharge needs including - *Post discharge parental anticoagulation - *Warfarin and/or parental anticoagulation education - *Follow up date to check INR post discharge At least 5 days overlap therapy as Inpatient No Meds if any: Prescribed or Continued at Discharge Note: Overlap Therapy is Warfarin and Anticoagulant Meds if any: NOT Prescribed or Continued at Discharge
--- NOTE | 2018-01-10 17:36 | Cons- Urology ---
General Information and HPI Consulting Request Date of Consult: 01/10/18 Requested By: Phong Godfrey MD Reason for Consult: hematuria Source of Information: patient Exam Limitations: no limitations History of Present Illness: This is a 77yo female with a PMH of hypertension, hyperlipidemia, pulmonary hypertension, former smoker, asthma, mitral valve replacement on warfarin, hypothyroidism, previous GI bleed, CAD s/p CABG with a chief complaint of vaginal bleeding for two days prior to admission. She initially had spotting that worsened into bleeding. She admits to urinary incontinence since her cardiac surgery 13 yrs ago. She noticed blood on her pads in the front and middle of the pads. 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 She does have a long smoking hx. She does not have a hx of chronic UTIs. Allergies/Medications Allergies: Coded Allergies: codeine (Severe, RESPIRATORY DISTRESS, HALLUCINATIONS 07/14/15) oxycodone (SHORTNESS OF BREATH 07/14/15) Iodinated Contrast- Oral and IV Dye (Iodinated Contrast Media - IV Dye) (NAUSEA, DIZZINESS 07/14/15) morphine (VOMITING 07/14/15) Uncoded Allergies: FRESH FROZEN PLASMA (UNKNOWN 07/14/15) Home Med List: Albuterol Sulfate (Proair Hfa) 90 MCG HFA.AER.AD 2 PUF INH Q4-6 PRN PRN SHORTNESS OF BREATH Aspirin (Aspirin*) 81 MG TAB.CHEW 1 TAB PO DAILY CAD (Reported) Atorvastatin Calcium 40 MG TABLET 1 TAB PO DAILY HIGH CHOLESTEROL (Reported) Fluticasone Propionate (Flovent Hfa) 110 MCG/ACTUATION AER.W.ADAP 2 PUF INH BID COPD (Reported) Furosemide (Lasix) 40 MG TABLET 40 MG PO DAILY fluid overload Take 1 tablet twice a day from 10/13-10/18/16, then take 1 talet daily . Levothyroxine Sodium 88 MCG TABLET 1 TAB PO DAILY HYPOTHRYOIDISM (Reported) Loratadine 10 MG TABLET 10 MG PO DAILY COPD . Metoprolol Succinate 50 MG TAB.ER.24H 1 TAB PO DAILY CAD (Reported) Montelukast Sodium (Singulair) 10 MG TABLET 1 TAB PO DAILY DAILY (Reported) Potassium Chloride 20 MEQ TAB.ER.PRT 1 TAB PO DAILY supplement Valsartan 160 MG TABLET 1 TAB PO DAILY HTN (Reported) Warfarin Sodium (Coumadin) 4 MG TABLET 1 TAB PO QMON BLOOD THINNER (Reported) WEDNESDAY, WEDNESDAY, WEDNESDAY Warfarin Sodium (Coumadin) 3 MG TABLET 1 TAB PO SUN BLOOD THINNER ( Reported) WEDNESDAY, WEDNESDAY, WEDNESDAY, WEDNESDAY Current Medications: Current Medications Sig/Slade Start time Last Medication Dose Route Stop Time Status Admin Albuterol Sulfate 2 PUF Q4-6 PRN PRN 01/08 1745 AC INH Atorvastatin Calcium 40 MG QPM 01/08 2315 AC 01/09 PO 1824 Budesonide/ 2 PUF BID 01/10 2100 AC Formoterol Fumarate INH Diphenhydramine HCl 25 MG ONCE ONE 01/11 0900 AC PO 01/11 09 Fluticasone 2 PUF 1130,2100 01/09 1130 DC 01/10 Propionate INH 1026 Furosemide 80 MG DAILY 01/11 0900 DC PO Furosemide 60 MG DAILY 01/11 0900 AC PO Furosemide 40 MG 0700,1500 01/09 0700 DC 01/10 IV 0703 Levothyroxine Sodium 0.088 MG DAILY AC 01/09 0700 AC 01/10 PO 0532 Loratadine 10 MG DAILY 01/09 0900 AC 01/10 PO 1024 Losartan Potassium 50 MG DAILY 01/09 0900 AC 01/09 PO 0829 Methylprednisolone 32 MG ONCE ONE 01/11 0900 AC PO 01/11 09 Methylprednisolone 32 MG ONCE ONE 01/10 2100 AC PO 01/10 210 Metoprolol Succinate 50 MG DAILY 01/09 0900 AC 01/10 PO 1025 Montelukast Sodium 10 MG QPM 01/09 2100 AC 01/09 PO 1820 Ondansetron HCl 4 MG ONCE ONE 01/11 0900 AC PO 01/11 0901 Polyethylene Glycol 17 GM DAILY 01/09 1515 AC 01/10 PO 1025 Potassium Chloride 20 MEQ DAILY 01/08 1737 AC 01/10 PO 1025 Senna/Docusate Sodium 1 TAB BID PRN 01/09 1515 AC PO Tiotropium [place] 1 PUF 1400 01/09 1400 AC 01/10 INH 1407 Warfarin Sodium 2 MG ONCE ONE 01/10 1700 DC PO 01/10 1701 Warfarin Sodium 4 MG QMON 01/10 0900 DC PO Warfarin Sodium 2 MG COUMADIN 1700 ONE 01/09 1745 DC 01/09 PO 01/09 1746 1824 Warfarin Sodium 3 MG COUMADIN 1700 ONE 01/09 1700 CAN PO 01/09 1701 Past History Medical History Blood Transfusion Hx: Yes Type of Reaction: Other (see notes), HTN Neurological: NONE EENT: NONE Cardiovascular: CAD, hypertension, hyperlipidemia, NSTEMI, S/p Mechanical Mitral Valve Replacement OPEN HEART SURGERY Respiratory: COPD Gastrointestinal: GERD, lower GI bleed Hepatic: NONE Renal: NONE Musculoskeletal: NONE Psychiatric: NONE Endocrine: hypothyroidism Blood Disorders: NONE Cancer(s): NONE 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 self Services at Home: None Primary Language: Serbian Smoking Status: Former Smoker Functional Ability ADLs Independent: dressing, eating, toileting, bathing. Ambulation: independent IADLs Independent: shopping, housework, finances, food prep, telephone, transportation , medication admin. Review of Systems Review of Systems Constitutional: Reports: no symptoms. EENTM: Reports: no symptoms. Cardiovascular: Reports: no symptoms. Respiratory: Reports: short of breath. GI: Reports: no symptoms. Genitourinary: Reports: hematuria. Musculoskeletal: Reports: no symptoms. Skin: Reports: no symptoms. Neurological/Psychological: Reports: no symptoms. Hematologic/Endocrine: Reports: bleeding. Immunologic/Allergic: Reports: no symptoms. Exam & Diagnostic Data Vital Signs and I&O Vital Signs Date Time Temp Pulse Resp B/P B/P Pulse O2 O2 Flow FiO2 Mean Ox Delivery Rate 01/10 1351 97.5 61 20 122/70 95 Nasal Cannula 01/10 1025 98.0 60 18 112/64 01/10 1024 98.0 60 18 112/64 01/10 0800 95 Nasal 2.0L Cannula 01/10 0641 98.0 60 18 96/56 93 Nasal Cannula 01/10 0000 Nasal 2.0L Cannula 01/09 2243 97.9 62 18 106/64 93 Nasal Cannula Intake & Output 01/10 1600 01/10 0800 01/10 0000 01/09 1600 01/09 0800 01/09 0000 Intake Total 480 450 420 240 120 Output Total 035 203 1455 1100 500 Balance -420 -700 -700 -680 240 -380 Intake, IV 20 Intake, Oral 480 450 400 240 120 Output, Urine 310 026 2450 1100 500 Patient 107.501 kg 107.246 kg Weight Weight Bed scale Measurement Method Physical Exam General Appearance: well developed/nourished, no apparent distress, alert, awake , comfortable Head: atraumatic, normal appearance Eyes: Bilateral: normal appearance. Ears, Nose, Throat: normal ENT inspection Neck: normal inspection Respiratory: quiet respiration Gastrointestinal: soft, non-tender Rectal: deferred Extremities: normal inspection Neurologic/Psych: awake, alert, oriented x 3 Cranial Nerves: normal hearing, normal speech Skin: intact, normal color, warm/dry Last 24 Hours of Labs: Laboratory Tests 01/10 01/10 0937 0645 Coagulation PT (9.4 - 12.5 SEC) 38.4 H INR (0.90 - 1.19) 3.48 H Hematology CBC w Diff Cancelled WBC Cancelled RBC Cancelled Hgb Cancelled Hct Cancelled MCV Cancelled MCH Cancelled MCHC Cancelled RDW Cancelled Plt Count Cancelled MPV Cancelled Imaging Results: TV US FINDINGS: The uterus is of normal size and echogenicity measuring 7.8 x 4.0 x 5.0 cm. Evaluation of the endometrium is limited secondary to patient positioning; however, the endometrium appears homogeneous and regular measuring approximately 8 mm. There are no mass lesions identified. There is no fluid within the individual cavity. The cervical length is 2.7 cm. Neither ovary is identified. There are no adnexal mass lesions. There is no pelvic free fluid. IMPRESSION: Slightly limited exam due to patient positioning; however, no endometrial mass lesions or fluid demonstrable. Neither ovary identified. No adnexal masses identified. Assessment/Plan Assessment/Plan 77yo female with multiple med problems including cardiac hx on warfarin with elevated coags. She has had gross hematuria for several days that is new in onset. She has a smoking hx. Awaiting imaging with CT abd/pelvis with contrast but has IV contrast allergy so premedicating. Will comment further once imaging performed. She had a TV US and it was WNL. 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 Will FU. Consult Acknowledgment - Thank you for your consult request.
[2018-01-10 22:58] VITALS: BP 108/70
[2018-01-11 06:23] VITALS: BP 120/76
--- NOTE | 2018-01-11 06:52 | PN- Housestaff ---
Subjective Follow-up For: Vaginal bleeding Hx. metallic mitral valve replacement on Coumadin Tele-Events Since Last Visit: Sinus rhythm. Lowest HR - 55. Subjective: Pt seen and examined this am. She is afebrile, in NSR, with O2 sat 94% on 2L NC. She offers no acute complains. She states feeling "about the same" as yesterday. Vaginal bleeding is perceived as the same. She is still constipated though passing flatus. Denies abdominal pain, chest pain, lightheadedness, diaphoresis or palpitations. Review of Systems Constitutional: Reports: see HPI. Objective Last 24 Hrs of Vital Signs/I&O Vital Signs Date Time Temp Pulse Resp B/P B/P Pulse O2 O2 Flow FiO2 Mean Ox Delivery Rate 01/11 0623 97.6 67 16 120/76 94 Nasal 2.0L Cannula 01/11 0000 Nasal 2.0L Cannula 01/10 2258 97.9 66 20 108/70 94 Nasal 2.0L Cannula 01/10 1600 Nasal 2.0L Cannula 01/10 1351 97.5 61 20 122/70 95 Nasal Cannula 01/10 1025 98.0 60 18 112/64 01/10 1024 98.0 60 18 112/64 Intake & Output 01/11 1600 01/11 0800 01/11 0000 Intake Total 340 Output Total 500 250 Balance -500 90 Intake, Oral 340 Output, Urine 500 250 Patient 236 lb Weight Weight Bed scale Measurement Method Physical Exam General Appearance: Alert, Oriented X3, Cooperative, No Acute Distress HEENT: Atraumatic Neck: Supple Cardiovascular: Regular Rate, Normal S1, Normal S2, No Murmurs Lungs: Clear to Auscultation Abdomen: Normal Bowel Sounds, Soft, No Tenderness Neurological: Normal Speech Extremities: No Edema, Noted telangectasias R>L in anteromedial portion of bashir Current Medications: Current Medications Sig/Slade Start time Last Medication Dose Route Stop Time Status Admin Albuterol Sulfate 2 PUF Q4-6 PRN PRN 01/08 1745 AC INH Atorvastatin Calcium 40 MG QPM 01/08 2315 AC 01/10 PO 2038 Budesonide/ 2 PUF BID 01/10 2100 AC Formoterol Fumarate INH Diphenhydramine HCl 25 MG ONCE ONE 01/11 0900 DC 01/11 PO 01/11 09 0612 Fluticasone 2 PUF 1130,01/09 1130 DC 01/10 Propionate INH 1026 Furosemide 80 MG DAILY 01/11 09 DC PO Furosemide 60 MG DAILY 01/11 09 AC 01/11 PO 09 Levothyroxine Sodium 0.088 MG DAILY AC 01/09 0700 AC 01/11 PO 0612 Loratadine 10 MG DAILY 01/09 0900 AC 01/11 PO 0904 Losartan Potassium 50 MG DAILY 01/09 09 AC 01/11 PO 09 Methylprednisolone 32 MG ONCE ONE 01/11 09 DC 01/11 PO 01/11 0901 0616 Methylprednisolone 32 MG ONCE ONE 01/10 2100 DC 01/10 PO 01/10 210 204 Metoprolol Succinate 50 MG DAILY 01/09 09 AC 01/11 PO 09 Montelukast Sodium 10 MG QPM 01/09 2100 AC 01/10 PO 2039 Ondansetron HCl 4 MG ONCE ONE 01/11 09 DC PO 01/11 0901 Polyethylene Glycol 17 GM DAILY 01/09 1515 AC 01/10 PO 1025 Potassium Chloride 20 MEQ DAILY 01/08 1737 AC 01/11 PO 0904 Senna/Docusate Sodium 1 TAB BID PRN 01/09 1515 AC PO Tiotropium [place] 1 PUF 1400 01/09 1400 AC 01/10 INH 1407 Warfarin Sodium 2 MG ONCE ONE 01/10 1700 DC 01/10 PO 01/10 1701 1735 Last 24 Hrs of Lab/Bertrand Results Last 24 Hrs of Labs/Mics: Laboratory Tests 01/11/18 0800: PT 42.9 *H, INR 3.88 H 01/11/18 0628: Anion Gap 7, Estimated GFR > 60, BUN/Creatinine Ratio 35.7 H, Magnesium 2.2, CBC w Diff NO MAN DIFF REQ, RBC 5.18, MCV 87.2, MCH 28.0, MCHC 32.1 L, RDW 15.7 H, MPV 9.4, Gran % 80.7 H, Lymphocytes % 16.8 L, Monocytes % 2.2, Eosinophils % 0, Basophils % 0.3, Absolute Granulocytes 5.7, Absolute Lymphocytes 1.2, Absolute Monocytes 0.2, Absolute Eosinophils 0, Absolute Basophils 0 01/10/18 0937: CBC w Diff Cancelled, WBC Cancelled, RBC Cancelled, Hgb Cancelled, Hct Cancelled , MCV Cancelled, MCH Cancelled, MCHC Cancelled, RDW Cancelled, Plt Count Cancelled, MPV Cancelled Assessment/Plan Assessment: 77 y/o F with PMH HTN, HLD, pulm HTN, former smoker, 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 She was admitted to the telemetry floor for continued management of the following issues: PROBLEM LIST 1. Vaginal bleeding 2. H/o metallic mitral valve replacement #Vaginal Bleeding Admitted to telemetry for monitoring of vitals Trops negative. Monitor H/H; H/H 14.2/43.7 on admission Spiriva, Symbicort started 01/10 Will continue the anticoagulation due to history of valvular heart disease and valve replacement Consulted gynecology - TV u/s WNL. Consulted urology - Ddx is broad at this point. Awaiting CT for further recommendations. CT ABD/Pelvis with oral/rectal/IV contrast today, she was premedicated with solumedrol, zofran, diphenhydramine. Showed R masses concerning for malignancy - will obtain CT chest in the am with IV contrast. Will repeat premedication protocol. Will start NS at 60 cc/hr and check Cr in the AM. #H/o metallic mitral valve replacement PT/INR to be followed up daily to dose warfarin accordingly. Target 2.5-3.5. Code Status: Full Code Heart Healthy Diet DVT PPx. Problem List: 1. Vaginal bleeding 2. Shortness of breath Pain Ratin Pain Location: n/a Pain Goal: Remain pain free Pain Plan: as indicated Tomorrow's Labs & Rationales: bep, inr, cbc
[2018-01-11 07:45] LABS: ABSOLUTE BASOPHIL COUNT 0 /CUMM (0.0-0.2); ABSOLUTE EOSINOPHIL COUNT 0 /CUMM (0.0-0.7); ABSOLUTE GRANULOCYTE CT 5.7 /CUMM (1.4-6.5); ABSOLUTE LYMPH COUNT 1.2 /CUMM (1.2-3.4); ABSOLUTE MONOCYTE COUNT 0.2 /CUMM (0.10-0.60); BASOPHIL % 0.3 % (0.0-2.0); EOSINOPHIL % 0 % (0-5); GRANULOCYTE % 80.7 % (42.2-75.2); HEMATOCRIT 45.2 % (37-47); MEAN CORPUSCULAR HGB CONC 32.1 G/DL (33.0-37.0); MEAN CORPUSCULAR VOLUME 87.2 FL (81.0-99.0); MEAN PLATELET VOLUME 9.4 FL (7.4-10.4); PLATELET COUNT 242 /CUMM (130-400); RBC DISTRIBUTION WIDTH 15.7 % (11.5-14.5); RED BLOOD CELL CT 5.18 /CUMM (4.20-5.40)
[2018-01-11 09:06] LABS: PT 42.9 SEC (9.4-12.5)
--- NOTE | 2018-01-11 10:57 | PN- Cardiology ---
Subjective Subjective: The patient continues to complain of vaginal bleeding and hematuria. She is feeling well from a cardiac standpoint. No chest pain. No shortness of breath. No palpitations. No diaphoresis. Objective Vital Signs and I&Os Vital Signs Date Time Temp Pulse Resp B/P B/P Pulse O2 O2 Flow FiO2 Mean Ox Delivery Rate 01/11 0904 97.6 67 16 120/76 01/11 0904 97.6 67 16 120/76 01/11 0623 97.6 67 16 120 94 Nasal 2.0L Cannula 01/11 0000 Nasal 2.0L Cannula 01/10 2258 97.9 66 20 108/70 94 Nasal 2.0L Cannula 01/10 1600 Nasal 2.0L Cannula 01/10 1351 97.5 61 20 122/70 95 Nasal Cannula Intake & Output 01/11 0800 01/11 0000 01/10 1600 01/10 0801/10 0000 Intake Total 340 480 450 Output Total 500 250 055 432 7197 Balance -500 90 -420 -700 -700 Intake, Oral 340 480 450 Output, Urine 500 250 556 737 8357 Patient 236 lb 237 lb Weight Weight Bed scale Bed scale Measurement Method Physical Exam: Gen: The patient is in no acute distress HEENT: Normal nose, ears, and oropharynx. Pupils equal bilaterally. Conjunctiva normal. Neck: Supple with no JVD, no masses, and no thyromegaly Lungs: Scattered rales with normal respiratory effort Heart: RRR, S1, S2, mechanical mitral valve sounds. 2+ peripheral edema, 2+ pulses in the lower extremities bilaterally Abdomen: Soft, nontender, no masses. No hepatomegaly. No splenomegaly Extremities: No clubbing or cyanosis. Normal muscle strength in the upper and lower extremities Skin: Normal skin turgor with no skin ulcers or lesio Current Medications: Current Medications Sig/Slade Start time Last Medication Dose Route Stop Time Status Admin Albuterol Sulfate 2 PUF Q4-6 PRN PRN 01/08 174 AC INH Atorvastatin Calcium 40 MG QPM 01/08 2315 AC 01/10 PO 2038 Budesonide/ 2 PUF BID 01/10 2100 AC Formoterol Fumarate INH Diphenhydramine HCl 25 MG ONCE ONE 01/11 09 DC 01/11 PO 01/11 09 0612 Fluticasone 2 PUF 1130,01/09 1130 DC 01/10 Propionate INH 1026 Furosemide 80 MG DAILY 01/11 09 DC PO Furosemide 60 MG DAILY 01/11 09 AC PO Levothyroxine Sodium 0.088 MG DAILY AC 01/09 0700 AC 01/11 PO 0612 Loratadine 10 MG DAILY 01/09 09 AC 01/11 PO 09 Losartan Potassium 50 MG DAILY 01/09 09 AC 01/11 PO 09 Methylprednisolone 32 MG ONCE ONE 01/11 09 DC 01/11 PO 01/11 0901 0616 Methylprednisolone 32 MG ONCE ONE 01/10 2100 DC 01/10 PO 01/10 Metoprolol Succinate 50 MG DAILY 01/09 09 AC 01/11 PO 09 Montelukast Sodium 10 MG QPM 01/09 2100 AC 01/10 PO 203 Ondansetron HCl 4 MG ONCE ONE 01/11 09 DC 01/11 PO 01/11 0901 0915 Polyethylene Glycol 17 GM DAILY 01/09 1515 AC 01/10 PO 1025 Potassium Chloride 20 MEQ DAILY 01/08 1737 AC 01/11 PO 0904 Senna/Docusate Sodium 1 TAB BID PRN 01/09 1515 AC PO Tiotropium [place] 1 PUF 1400 01/09 1400 AC 01/10 INH 1407 Warfarin Sodium 2 MG ONCE ONE 01/10 1700 DC 01/10 PO 01/10 1701 1735 Results Last 48 Hrs of Labs/Mics: Laboratory Tests 01/11/18 0800: PT 42.9 *H, INR 3.88 H 01/11/18 0628: Anion Gap 7, Estimated GFR > 60, BUN/Creatinine Ratio 35.7 H, Magnesium 2.2, CBC w Diff NO MAN DIFF REQ, RBC 5.18, MCV 87.2, MCH 28.0, MCHC 32.1 L, RDW 15.7 H, MPV 9.4, Gran % 80.7 H, Lymphocytes % 16.8 L, Monocytes % 2.2, Eosinophils % 0, Basophils % 0.3, Absolute Granulocytes 5.7, Absolute Lymphocytes 1.2, Absolute Monocytes 0.2, Absolute Eosinophils 0, Absolute Basophils 0 01/10/18 0937: CBC w Diff Cancelled, WBC Cancelled, RBC Cancelled, Hgb Cancelled, Hct Cancelled , MCV Cancelled, MCH Cancelled, MCHC Cancelled, RDW Cancelled, Plt Count Cancelled, MPV Cancelled 01/10/18 0645: PT 38.4 H, INR 3.48 H Assessment/Plan Assessment/Plan Assessment: 1. Mechanical mitral valve 2. Vaginal bleeding, with stable hemoglobin and hematocrit. INR therapeutic 3. Acute on chronic HFpEF, improved Plan: * Continue p.o. Lasix * Dose warfarin for INR 2.5-3.5 * Echocardiogram pending * Continue cardiac medications * Evaluation of vaginal bleeding and hematuria as per POLE SHAVER HELPER and urology Continue telemetry? No
--- NOTE | 2018-01-11 14:23 | CT SCAN REPORT ---
EXAMINATION: CT ABDOMEN AND PELVIS WITH CONTRAST CLINICAL INFORMATION: 77-year-old female with vaginal bleeding and suspected pneumaturia. COMPARISON: CT of the abdomen and pelvis done on 03/01/2014. TECHNIQUE: Multidetector volumetric imaging was performed of the abdomen and pelvis following IV administration of 95 mL of Omnipaque 300 intravenous contrast. 30 mL of Gastrografin diluted in 1000 mL of water was also instilled into the large bowel through a rectal tube. Sagittal and coronal reformatted images were obtained on the technologist's workstation. DLP: 1315.89 mGy-cm FINDINGS: LUNG BASES: Abnormal showing evidence of a solid-appearing 1.7 cm mass within the central anteromedial aspect of the right lower lobe of the lung adjacent to the right hemidiaphragm (see the olea images). There is a second pleural-based 2 cm maximum transverse dimension mass also noted at right lower lobe of the lung posteromedially (see the olea images). In addition, there are lobulated hypodense masses identified, only partially included within the [id number] at the right perihilar, infrahilar visualized part of the right hemithorax, suspicious for lymphadenopathy. All these findings are new since 03/01/2014. A followup contrast enhanced CT scan of the chest is recommended for further full detailed evaluation. LIVER, GALLBLADDER, AND BILIARY TREE: The liver is normal in size, shape, and attenuation. No focal hepatic lesion or biliary ductal dilatation is present. The gallbladder is surgically absent. PANCREAS: Unremarkable. SPLEEN: Unremarkable. ADRENAL GLANDS: Unremarkable. KIDNEYS AND URETERS: The kidneys are normal in size, shape, and attenuation. No hydronephrosis, hydroureter, or calculi seen. No perinephric stranding. BLADDER: Suboptimally distended, grossly appears unremarkable. Specifically, no evidence of any intraluminal air or positive/rectal contrast visualized. GASTROINTESTINAL TRACT: Significant fecal residual is noted throughout the entire large bowel. Superimposed colonic diverticulosis-related changes are noted predominately within the sigmoid colon. There is no CT evidence of any diverticulitis, or fistula formation present. Specifically, no CT evidence of any rectovaginal or colo-fistula identified. The appendix is unremarkable. ABDOMINAL WALL: There is a midline upper abdominal wall ventral hernia present with extension of fat through the defect. The maximum transverse dimension of the defect measures 4.8 cm while the maximum craniocaudal dimension of the defect measures 5.4 cm. LYMPH NODES: Normal. VASCULAR: Atherosclerotic disease is noted within the aorta and its branches without aneurysm formation. PELVIC VISCERA: There is no pelvic mass present. The fundus, body of the uterus appears heterogeneous, possibility of intrauterine mass is not excluded. There is no adnexal mass present on either side. There is no free fluid and/or free air present. OSSEOUS STRUCTURES: Multilevel degenerative spondylosis-related changes are noted in the spine. No suspicious superimposed lytic or sclerotic abnormalities present. IMPRESSION: 1. Abnormal CT scan of the abdomen and pelvis showing features suspicious for lung masses seen within the visualized right lung base with possible right infrahilar, perihilar lymphadenopathy. A followup contrast enhanced CT scan of the entire chest is recommended for further full detailed evaluation. 2. No CT evidence of any colo-vesical or rectovaginal fistula identified. 3. Colonic diverticulosis without any CT features of acute diverticulitis. 4. A 4.8 x 5.4 cm maximum anteroposterior by craniocaudal dimension midline ventral hernia containing fat only at upper abdomen starting just below the level of the xiphoid process. 5. Heterogeneous appearance of the uterus, possibility of uterine mass is not excluded. 6. Multilevel degenerative spondylosis.
[2018-01-11 14:34] VITALS: BP 118/70
--- NOTE | 2018-01-11 16:31 | PN- Pulmonary ---
Subjective HPI/Critical Care Issues: Doing ok ct abd and pelvis noted Sig lung abnormality with lung mass noted No sig fistula in the abd urology and site project manager eval done Objective Current Medications: Current Medications Sig/Slade Start time Last Medication Dose Route Stop Time Status Admin Albuterol Sulfate 2 PUF Q4-6 PRN PRN 01/08 1745 AC INH Atorvastatin Calcium 40 MG QPM 01/08 2315 AC 01/10 PO 2039 Budesonide/ 2 PUF BID 01/10 2100 AC Formoterol Fumarate INH Diphenhydramine HCl 25 MG ONCE ONE 01/11 09 DC 01/11 PO 01/11 0901 0612 Furosemide 60 MG DAILY 01/11 09 AC 01/11 PO 1223 Levothyroxine Sodium 0.088 MG DAILY AC 01/09 07 AC 01/11 PO 06 Loratadine 10 MG DAILY 01/09 09 AC 01/11 PO 09 Losartan Potassium 50 MG DAILY 01/09 09 AC 01/11 PO 09 Methylprednisolone 32 MG ONCE ONE 01/11 09 DC 01/11 PO 01/11 0901 0616 Methylprednisolone 32 MG ONCE ONE 01/10 2100 DC 01/10 PO 01/10 2101 2040 Metoprolol Succinate 50 MG DAILY 01/09 09 AC 01/11 PO 09 Montelukast Sodium 10 MG QPM 01/09 2100 AC 01/10 PO 2038 Ondansetron HCl 4 MG ONCE ONE 01/11 0900 DC 01/11 PO 01/11 0901 0915 Polyethylene Glycol 17 GM DAILY 01/09 1515 AC 01/10 PO 1025 Potassium Chloride 20 MEQ DAILY 01/08 1737 AC 01/11 PO 0904 Senna/Docusate Sodium 1 TAB BID PRN 01/09 1515 AC PO Sodium Chloride 1,000 ML .[id number] 01/11 1515 AC IV Tiotropium [place] 1 PUF 1400 01/09 1400 AC 01/11 INH 1453 Warfarin Sodium 2 MG ONCE ONE 01/11 1345 CAN PO 01/11 1346 Warfarin Sodium 2 MG ONCE ONE 01/10 1700 DC 01/10 PO 01/10 1701 1735 Vital Signs & I&O Last 24 Hrs of Vitals and I&O: Vital Signs Date Time Temp Pulse Resp B/P B/P Pulse O2 O2 Flow FiO2 Mean Ox Delivery Rate 01/11 1434 98.6 67 18 118/70 93 Nasal Cannula 01/11 0904 97.6 67 16 120/76 01/11 0904 97.6 67 16 120/76 01/11 0623 97.6 67 16 120/ 94 Nasal 2.0L Cannula 01/11 0000 Nasal 2.0L Cannula 01/108 97.9 66 20 108/70 94 Nasal 2.0L Cannula Intake & Output 01/11 1600 01/11 0800 01/11 0000 Intake Total 340 Output Total 500 250 Balance -500 90 Intake, Oral 340 Output, Urine 500 250 Patient 236 lb Weight Weight Bed scale Measurement Method Laboratory Tests 01/11 01/11 01/10 0800 0628 0937 Chemistry Sodium (137 - 145 mmol/L) 137 Potassium (3.5 - 5.1 mmol/L) 5.3 H Chloride (98 - 107 mmol/L) 100 Carbon Dioxide (22 - 30 mmol/L) 30 Anion Gap (5 - 16) 7 BUN (7 - 17 mg/dL) 25 H Creatinine (0.5 - 1.0 mg/dL) 0.7 Estimated GFR (>60 ml/min) > 60 BUN/Creatinine Ratio (7 - 25 %) 35.7 H Magnesium (1.6 - 2.3 mg/dL) 2.2 Coagulation PT (9.4 - 12.5 SEC) 42.9 *H INR (0.90 - 1.19) 3.88 H Hematology CBC w Diff NO MAN DIFF REQ Cancelled WBC (4.8 - 10.8 /CUMM) 7.0 Cancelled RBC (4.20 - 5.40 /CUMM) 5.18 Cancelled Hgb (12.0 - 16.0 G/DL) 14.5 Cancelled Hct (37 - 47 %) 45.2 Cancelled MCV (81.0 - 99.0 FL) 87.2 Cancelled MCH (27.0 - 31.0 PG) 28.0 Cancelled MCHC (33.0 - 37.0 G/DL) 32.1 L Cancelled RDW (11.5 - 14.5 %) 15.7 H Cancelled Plt Count (130 - 400 /CUMM) 242 Cancelled MPV (7.4 - 10.4 FL) 9.4 Cancelled Gran % (42.2 - 75.2 %) 80.7 H Lymphocytes % (20.5 - 51.1 %) 16.8 L Monocytes % (1.7 - 9.3 %) 2.2 Eosinophils % (0 - 5 %) 0 Basophils % (0.0 - 2.0 %) 0.3 Absolute Granulocytes (1.4 - 6.5 /CUMM) 5.7 Absolute Lymphocytes (1.2 - 3.4 /CUMM) 1.2 Absolute Monocytes (0.10 - 0.60 /CUMM) 0.2 Absolute Eosinophils (0.0 - 0.7 /CUMM) 0 Absolute Basophils (0.0 - 0.2 /CUMM) 0 01/10 0645 Coagulation PT (9.4 - 12.5 SEC) 38.4 H INR (0.90 - 1.19) 3.48 H Impression/Plan Impression/Plan Impression/Plan: Gen: The patient is in no acute distress HEENT: Normal nose, ears, and oropharynx. Pupils equal bilaterally. Conjunctiva normal. Neck: Supple with no JVD, no masses, and no thyromegaly Lungs: Scattered rales with normal respiratory effort Heart: RRR, S1, S2, mechanical mitral valve sounds. 2+ peripheral edema, 2+ pulses in the lower extremities bilaterally Abdomen: Soft, nontender, no masses. No hepatomegaly. No splenomegaly Extremities: No clubbing or cyanosis. Normal muscle strength in the upper and lower extremities Skin: Normal skin turgor with no skin ulcers or lesions noted. Neuro: Cranial nerves intact. Sensation intact Psych: Alert and oriented x 3 with appropriate affect This is a 77-year-old lady with history of hypertension, coronary artery disease with previous CABG and mitral valve replacement for a ruptured papillary muscle emergently done in 2004, now on anticoagulation with warfarin, hypothyroidism on appropriate supplementation, previous recurrent bowel obstruction with mesh surgery for paraumbilical hernia, diverticulitis of the sigmoid history, Issues include * Acute on chronic diastolic heart failure with mild pulmonary edema which shortness of breath improving after Lasix * Vaginal bleeding vs other discharge per vagina vs hematuria, eval pending * SIg abnormal ct abd with lung nodules and lyphadenopathy highly suspicious for lung malingncy (pt has remote history of smoking0 * Coronary artery disease with previous CABG and mitral valve replacement with a metallic valve for Ruptured papillary muscle in 2004 with previous echoes suggestive of normal ejection fraction with diastolic heart. Patient is on appropriate anticoagulation with INR now is 3.48. No clinical evidence of acute coronary syndrome * Morbid obesity with signs and symptoms suggestive of upper airway resistance syndrome patient is not keen on sleep study * Significant pulmonary hypertension related to previous mitral valve disease with probable diastolic heart disease * Mild asthmatic bronchitis with mild COPD with previous history of smoking up until 2004 * Hypothyroidism on appropriate supplementation * GERD on appropriate medication * Hyperlipidemia, hypertension, allergic rhinitis relatively stable RECOMMENDATION Continue current meds IVF with normal saline at 60 cc adn check creat in am and if ok CT chest with IVC to eval lung abnormality Daily INR and keep inr more than 2.5-3.5, can reduce warfarin dose today Cont spirva and other inhalers Continue warfarin keep INR between 2.5-3.5 as she has a metallic valve Symbicort 2 puffs twice a day and switch her to Flovent prior to discharge Continue loratadine and montelukast Continue her outpatient blood pressure medications MEDICAL CHARGE ENTRY SPECIALIST and UROLOGy eval - ongoing Cont prednisone today and premeditate like we did yesterday for contrast for ct chest Pt not aware of the findings and I will discuss with the patient when able
--- NOTE | 2018-01-11 17:19 | PN- Urology ---
Subjective Subjective: pt still with very high INR and GH. Objective Vital Signs and I&Os Vital Signs Date Time Temp Pulse Resp B/P B/P Pulse O2 O2 Flow FiO2 Mean Ox Delivery Rate 01/11 1434 98.6 67 18 118/70 93 Nasal Cannula 01/11 0904 97.6 67 16 120/76 01/11 0904 97.6 67 16 120/76 01/11 0623 97.6 67 16 120/76 94 Nasal 2.0L Cannula 01/11 0000 Nasal 2.0L Cannula 01/10 2258 97.9 66 20 108/70 94 Nasal 2.0L Cannula Intake & Output 01/11 1600 01/11 0800 01/11 0000 01/10 1600 01/10 0800 01/10 0000 Intake Total 340 480 450 Output Total 500 250 237 928 8548 Balance -500 90 -420 -700 -700 Intake, Oral 340 480 450 Output, Urine 500 250 593 [id number] 8812 Patient 107.048 kg 107.501 kg Weight Weight Bed scale Bed scale Measurement Method Physical Exam: gross hematuria Assessment/Plan Assessment/Plan 77yo female with a hx of gross hematuria with an elevated INR. No abnormality noted on CT scan with IV contrast in her system. Pt needs urine culture sent. She has had UTIs in the past. May be a simple UTI. Would hold off on any cystoscopy or invasive tests given her stable HCT. Core Measures Venous Thromboembolism VTE Risk Factors Acute Medical Illness No Mechanical VTE Prophylaxis d/t N/A MechProphylax Ordered No VTE Pharm Prophylaxis d/t NA PharmProphylax ordered
--- NOTE | 2018-01-11 17:28 | ECHOCARDIOGRAM REPORT ---
HENRI ORTEGA Age: 77 : 1940 Gender: F Exam Date: 01/10/2018 19:12 Exam Location: [address] Ht (in): 60 Wt (lb): 207 BSA: 2.05 BP: 122 / 70 Ordering Physician: Daniel Edmonds MD Referring Physician: Tiago Castaneda MD Technologist: Ann Motley [facility] Room Number: 185-02 Indications: Prosthetic Valve Function Rhythm: Sinus Technical Quality: Technically difficult study FINDINGS Left Ventricle Normal size left ventricle. Moderate concentric left ventricular hypertrophy. Normal left ventricular ejection fraction visually estimated at >60%. No obvious regional wall motion abnormalities. Right Ventricle Normal right ventricular size and function. Right Atrium Mild right atrial dilatation. Left Atrium Mild left atrial dilatation. Mitral Valve Mechanical prosthetic mitral valve is well-seated and appears to be functioning normally.gradient recorded across the prosthetic mitral valve within the expected range. Aortic Valve Diffuse thickening (sclerosis) of the aortic valve cusps without reduced excursion. No aortic stenosis. No aortic regurgitation. Tricuspid Valve Tricuspid valve not well visualized, grossly normal. Pulmonic Valve Trace pulmonic regurgitation. Pericardium No pericardial effusion. Great Vessels Normal size aortic root. CONCLUSIONS Normal size left ventricle. Moderate concentric left ventricular hypertrophy. Normal left ventricular ejection fraction visually estimated at > 60%. Mild right atrial dilatation. Mild left atrial dilatation. Mechanical prosthetic mitral valve is well-seated and appears to be functioning normally. Gradient recorded across the prosthetic mitral valve within the expected range. Tiago Castaneda M.D. (Electronically Signed) Final Date: 11 January 2018 17:23 MEASUREMENTS (Male / Female) Normal Values 2D ECHO LV Diastolic Diameter PLAX 4.7 cm 4.2 - 5.9 / 3.9 - 5.3 cm LV Systolic Diameter PLAX 2.6 cm 2.1 - 4.0 cm LV Fractional Shortening PLAX 43.8 % 25 - 46 % LV Ejection Fraction 2D Teich 75.0 % IVS Diastolic Thickness 1.6 cm LVPW Diastolic Thickness 1.4 cm LV Relative Wall Thickness 0.6 RV Internal Dim ED PLAX 2.7 cm 1.9 - 3.8 cm LVOT Diameter 2.2 cm Aortic Root Diameter 3.4 cm LA Systolic Diameter LX 5.3 cm 3.0 - 4.0 / 2.7 - 3.8 cm Ascending Aorta Diameter 3.5 cm DOPPLER AV Peak Velocity 135.0 cm/s AV Peak Gradient 7.3 mmHg AV Mean Velocity 102.0 cm/s AV Mean Gradient 5.0 mmHg AV Velocity Time Integral 29.0 cm LVOT Peak Velocity 112.0 cm/s LVOT Peak Gradient 5.0 mmHg LVOT Mean Velocity 75.8 cm/s LVOT Mean Gradient 3.0 mmHg LVOT Velocity Time Integral 28.0 cm LVOT Stroke Volume 106.4 cm AV Area Cont Eq vti 3.7 cm AV Area Cont Eq pk 3.2 cm MV Peak Velocity 142.5 cm/s MV Peak Gradient 8.1 mmHg MV Mean Velocity 78.9 cm/s MV Mean Gradient 3.0 mmHg Mitral E Point Velocity 142.0 cm/s Mitral A Point Velocity 95.3 cm/s Mitral E to A Ratio 1.5 MV PHT Velocity 146.5 cm/s MV Deceleration [facility] 432.0 cm/s MV Pressure Half Time 101.7 ms MV Area PHT 2.2 cm MV Deceleration Time 288.0 ms TR Peak Velocity 119.0 cm/s TR Peak Gradient 5.7 mmHg Right Atrial Pressure 5.0 mmHg Pulmonary Artery Systolic Pressure 10.7 mmHg Right Ventricular Systolic Pressure 10.7 mmHg PV Peak Velocity 112.0 cm/s PV Peak Gradient 5.0 mmHg PV Mean Velocity 67.7 cm/s PV Mean Gradient 2.0 mmHg PV Velocity Time Integral 18.6 cm LV E' Lateral Velocity 13.0 cm/s Mitral E to LV E' Lateral Ratio 10.9 LV E' Septal Velocity 6.0 cm/s Mitral E to LV E' Septal Ratio 23.5
[2018-01-11 22:55] VITALS: BP 138/68
[2018-01-12 06:30] VITALS: BP 116/64
--- NOTE | 2018-01-12 06:45 | PN- Housestaff ---
Subjective Follow-up For: Vaginal bleeding Hx. 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 VSS reviewed. Afebrile, stable BP, O2 sat 94% on 2L O2. She was pleasant, offered no acute complains. States her cough is no worse than usual, and that her vaginal bleeding subsides at times only to return , usually in greater quantity. She has no abdominal pain or chest pain. She has no lightheadedness, dizziness, palpitations. Review of Systems Constitutional: Reports: see HPI. Objective Last 24 Hrs of Vital Signs/I&O Vital Signs Date Time Temp Pulse Resp B/P B/P Pulse O2 O2 Flow FiO2 Mean Ox Delivery Rate 01/12 0630 97.7 63 18 116/64 94 Nasal Cannula 01/11 2300 Nasal 2.0L Cannula 01/11 2255 97.8 66 18 138/68 93 Nasal 1.0L Cannula 01/11 1434 98.6 67 18 118/70 93 Nasal Cannula 01/11 0904 97.6 67 16 120/76 01/11 0904 97.6 67 16 120/76 Intake & Output 01/12 1600 01/12 0800 01/12 0000 Intake Total 480 300 Output Total 500 450 Balance -20 -150 Intake, IV 480 Intake, Oral 300 Output, Urine 500 450 Patient 235 lb Weight Weight Bed scale Measurement Method Physical Exam General Appearance: Alert, Oriented X3, Cooperative, No Acute Distress HEENT: Atraumatic Neck: Supple Cardiovascular: Regular Rate, Normal S1, Normal S2 Lungs: Clear to Auscultation, No wheezing or crackles heard. Abdomen: Normal Bowel Sounds, Soft, No Tenderness Neurological: Normal Speech Extremities: No Edema, Telangectasias r>l noted on anteromedial portion of bashir Current Medications: Current Medications Sig/Slade Start time Last Medication Dose Route Stop Time Status Admin Albuterol Sulfate 2 PUF Q4-6 PRN PRN 01/08 1745 AC INH Atorvastatin Calcium 40 MG QPM 01/08 2315 AC 01/11 PO 215 Budesonide/ 2 PUF BID 01/10 2100 AC Formoterol Fumarate INH Diphenhydramine HCl 25 MG ONCE ONE 01/12 900 AC PO 01/12 09 Diphenhydramine HCl 25 MG ONCE ONE 01/11 0900 DC 01/11 PO 09/25 0901 0612 Furosemide 60 MG DAILY 01/11 0900 AC 01/11 PO 1223 Levothyroxine Sodium 0.088 MG DAILY AC 01/09 0700 AC 01/12 PO 0633 Loratadine 10 MG DAILY 01/09 0900 AC 01/11 PO 0904 Losartan Potassium 50 MG DAILY 01/09 0900 AC 01/11 PO 0904 Methylprednisolone 32 MG ONCE ONE 01/12 09 AC PO 01/12 09 Methylprednisolone 32 MG ONCE ONE 01/11 2100 DC 01/11 PO 01/11 210 2153 Methylprednisolone 32 MG ONCE ONE 01/11 09 DC 01/11 PO 01/11 0901 0616 Metoprolol Succinate 50 MG DAILY 01/09 09 AC 01/11 PO 09 Montelukast Sodium 10 MG QPM 01/09 2100 AC 01/11 PO 215 Ondansetron HCl 4 MG ONCE ONE 01/12 09 AC PO 01/12 09 Ondansetron HCl 4 MG ONCE ONE 01/11 09 DC 01/11 PO 01/11 0901 0915 Polyethylene Glycol 17 GM DAILY 01/09 1515 AC 01/10 PO 1025 Potassium Chloride 20 MEQ DAILY 01/08 1737 AC 01/11 PO 0904 Senna/Docusate Sodium 1 TAB BID PRN 01/09 1515 AC PO Sodium Chloride 1,000 ML .[id number] 01/11 1515 AC 01/11 IV 1545 Tiotropium [place] 1 PUF 1400 01/09 1400 AC 01/11 INH 1453 Warfarin Sodium 2 MG ONCE ONE 01/11 1345 CAN PO 01/11 1346 Last 24 Hrs of Lab/[place] Results Last 24 Hrs of Labs/Mics: Laboratory Tests 01/12/18 0634: Anion Gap 9, Estimated GFR > 60, BUN/Creatinine Ratio 32.9 H, PT Pending, INR Pending, CBC w Diff NO MAN DIFF REQ, RBC 4.87, MCV 86.4, MCH 28.0, MCHC 32.4 L, RDW 16.0 H, MPV 9.4, Gran % 83.7 H, Lymphocytes % 12.5 L, Monocytes % 3.6, Eosinophils % 0, Basophils % 0.2, Absolute Granulocytes 6.7 H, Absolute Lymphocytes 1.0 L, Absolute Monocytes 0.3, Absolute Eosinophils 0, Absolute Basophils 0 Microbiology 09/25 1925 URINE ROUT: Urine Culture - RECD Assessment/Plan Assessment: 77 y/o F with PMH HTN, HLD, pulm HTN, former smoker, 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 She was admitted to the telemetry floor for continued management of the following issues: PROBLEM LIST 1. Vaginal bleeding 2. H/o metallic mitral valve replacement #Vaginal Bleeding Admitted to telemetry for monitoring of vitals Trops negative. Monitoring H/H -Stable as of 01/12 Spiriva, Symbicort started 01/10 Will continue the anticoagulation due to history of valvular heart disease and valve replacement Consulted gynecology - TV u/s WNL. Consulted urology - Ddx is broad at this point. Will send for Ucx; no need for cystoscopy at this point due to stable H/H. CT ABD/Pelvis with oral/rectal/IV contrast yesterday; she was premedicated with solumedrol, zofran, diphenhydramine. Showed R lung masses concerning for malignancy - CT chest with IV contrast today. Premedicated. F/u results. #H/o metallic mitral valve replacement PT/INR to be followed up daily to dose warfarin accordingly. Target 2.5-3.5. Supratheurapetic on 01/12 - will hold warfarin. Code Status: Full Code Heart Healthy Diet DVT PPx. Problem List: 1. Vaginal bleeding 2. Shortness of breath Pain Ratin Pain Location: n/a Pain Goal: Remain pain free Pain Plan: as indicated Tomorrow's Labs & Rationales: cbc
[2018-01-12 07:59] LABS: ABSOLUTE BASOPHIL COUNT 0 /CUMM (0.0-0.2); ABSOLUTE EOSINOPHIL COUNT 0 /CUMM (0.0-0.7); ABSOLUTE GRANULOCYTE CT 6.7 /CUMM (1.4-6.5); ABSOLUTE MONOCYTE COUNT 0.3 /CUMM (0.10-0.60); BASOPHIL % 0.2 % (0.0-2.0); EOSINOPHIL % 0 % (0-5); GRANULOCYTE % 83.7 % (42.2-75.2); HEMATOCRIT 42.1 % (37-47); MEAN CORPUSCULAR HGB CONC 32.4 G/DL (33.0-37.0); MEAN CORPUSCULAR VOLUME 86.4 FL (81.0-99.0); MEAN PLATELET VOLUME 9.4 FL (7.4-10.4); PLATELET COUNT 233 /CUMM (130-400); RED BLOOD CELL CT 4.87 /CUMM (4.20-5.40)
[2018-01-12 08:52] LABS: PT 47.7 SEC (9.4-12.5)
[2018-01-12 13:51] VITALS: BP 116/66
--- NOTE | 2018-01-12 14:11 | PN- Cardiology ---
Subjective Subjective: The patient continues to complain of vaginal bleeding and hematuria. She is feeling well from a cardiac standpoint. No chest pain. No shortness of breath. No palpitations. No diaphoresis. Objective Vital Signs and I&Os Vital Signs Date Time Temp Pulse Resp B/P B/P Pulse O2 O2 Flow FiO2 Mean Ox Delivery Rate 01/12 1351 97.9 65 18 116/66 93 Nasal Cannula 01/12 0930 116/64 01/12 0930 116/64 01/12 0630 97.7 63 18 116/64 94 Nasal Cannula 01/11 2300 Nasal 2.0L Cannula 01/11 2255 97.8 66 18 138/68 93 Nasal 1.0L Cannula 01/11 1434 98.6 67 18 118/70 93 Nasal Cannula Intake & Output 01/12 1600 01/12 0800 01/12 0000 01/11 1600 01/11 0800 01/11 0000 Intake Total 164 241 4471 340 Output Total 500 450 500 250 Balance -20 -150 1000 -500 90 Intake, IV 480 Intake, Oral 300 1000 340 Output, Urine 500 450 500 250 Patient 235 lb 236 lb Weight Weight Bed scale Bed scale Measurement Method Physical Exam: Gen: The patient is in no acute distress HEENT: Normal nose, ears, and oropharynx. Pupils equal bilaterally. Conjunctiva normal. Neck: Supple with no JVD, no masses, and no thyromegaly Lungs: Scattered rales with normal respiratory effort Heart: RRR, S1, S2, mechanical mitral valve sounds. 2+ peripheral edema, 2+ pulses in the lower extremities bilaterally Abdomen: Soft, nontender, no masses. No hepatomegaly. No splenomegaly Extremities: No clubbing or cyanosis. Normal muscle strength in the upper and lower extremities Skin: Normal skin turgor with no skin ulcers or lesions Current Medications: Current Medications Sig/Slade Start time Last Medication Dose Route Stop Time Status Admin Albuterol Sulfate 2 PUF Q4-6 PRN PRN 01/08 174 AC INH Atorvastatin Calcium 40 MG QPM 01/08 2315 AC 01/11 PO 215 Budesonide/ 2 PUF BID 01/10 2100 AC Formoterol Fumarate INH Diphenhydramine HCl 25 MG ONCE ONE 01/12 900 DC 01/12 PO 01/12 901 09 Furosemide 60 MG DAILY 01/11 900 AC 01/11 PO 1223 Levothyroxine Sodium 0.088 MG DAILY AC 01/09 0700 AC 01/12 PO 0633 Loratadine 10 MG DAILY 01/09 09 AC 01/12 PO 929 Losartan Potassium 50 MG DAILY 01/09 900 AC 01/12 PO 929 Methylprednisolone 32 MG ONCE ONE 01/12 900 DC 01/12 PO 01/1234 Methylprednisolone 32 MG ONCE ONE 01/11 2100 DC 01/11 PO 01/11 210 215 Metoprolol Succinate 50 MG DAILY 01/09 900 AC 01/12 PO 929 Montelukast Sodium 10 MG QPM 01/09 2100 AC 01/11 PO 215 Ondansetron HCl 4 MG ONCE ONE 01/12 900 DC 01/12 PO 01/12 Polyethylene Glycol 17 GM DAILY 01/09 1515 AC 01/10 PO 1025 Potassium Chloride 20 MEQ DAILY 01/08 1737 AC 01/12 PO 929 Senna/Docusate Sodium 1 TAB BID PRN 01/09 1515 AC PO Sodium Chloride 1,000 ML .[id number] 01/11 1515 AC 01/12 IV 1057 Tiotropium [place] 1 PUF 1400 01/09 1400 AC 01/11 INH 1453 Results Last 48 Hrs of Labs/Mics: Laboratory Tests 01/12/1834: Anion Gap 9, Estimated GFR > 60, BUN/Creatinine Ratio 32.9 H, PT 47.7 *H, INR 4.31 *H, CBC w Diff NO MAN DIFF REQ, RBC 4.87, MCV 86.4, MCH 28.0, MCHC 32.4 L, RDW 16.0 H, MPV 9.4, Gran % 83.7 H, Lymphocytes % 12.5 L, Monocytes % 3.6, Eosinophils % 0, Basophils % 0.2, Absolute Granulocytes 6.7 H, Absolute Lymphocytes 1.0 L, Absolute Monocytes 0.3, Absolute Eosinophils 0, Absolute Basophils 0 01/11/18 08: PT 42.9 *H, INR 3.88 H 01/11/18 06: Anion Gap 7, Estimated GFR > 60, BUN/Creatinine Ratio 35.7 H, Magnesium 2.2, CBC w Diff NO MAN DIFF REQ, RBC 5.18, MCV 87.2, MCH 28.0, MCHC 32.1 L, RDW 15.7 H, MPV 9.4, Gran % 80.7 H, Lymphocytes % 16.8 L, Monocytes % 2.2, Eosinophils % 0, Basophils % 0.3, Absolute Granulocytes 5.7, Absolute Lymphocytes 1.2, Absolute Monocytes 0.2, Absolute Eosinophils 0, Absolute Basophils 0 Assessment/Plan Assessment/Plan ssessment: 1. Mechanical mitral valve 2. Vaginal bleeding, with stable hemoglobin and hematocrit. INR therapeutic 3. Acute on chronic HFpEF, improved Plan: * Continue p.o. 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 No
--- NOTE | 2018-01-12 14:26 | PN- Pulmonary ---
Subjective HPI/Critical Care Issues: No sig bleeding noted No shortness of breath. No palpitations. No diaphoresis. CT chest done and report pending Pt does have a large mediastinal bulky lymphadenopathy with multiple lung nodules highly suspicious for malignancy Objective Current Medications: Current Medications Sig/Slade Start time Last Medication Dose Route Stop Time Status Admin Albuterol Sulfate 2 PUF Q4-6 PRN PRN 01/08 1745 AC INH Atorvastatin Calcium 40 MG QPM 01/08 2315 AC 01/11 PO 2152 Budesonide/ 2 PUF BID 01/10 2100 AC Formoterol Fumarate INH Diphenhydramine HCl 25 MG ONCE ONE 01/12 09 DC 01/12 PO 01/12 0901 0930 Furosemide 60 MG DAILY 01/11 09 AC 01/11 PO 1223 Levothyroxine Sodium 0.088 MG DAILY AC 01/09 07 AC 01/12 PO 0633 Loratadine 10 MG DAILY 01/09 09 AC 01/12 PO 0930 Losartan Potassium 50 MG DAILY 01/09 09 AC 01/12 PO 0930 Methylprednisolone 32 MG ONCE ONE 01/12 09 DC 01/12 PO 01/12 0901 0934 Methylprednisolone 32 MG ONCE ONE 01/11 2100 DC 01/11 PO 01/11 2101 2153 Metoprolol Succinate 50 MG DAILY 01/09 09 AC 01/12 PO 0930 Montelukast Sodium 10 MG QPM 01/09 2100 AC 01/11 PO 2152 Ondansetron HCl 4 MG ONCE ONE 01/12 0900 DC 01/12 PO 01/12 0901 0930 Polyethylene Glycol 17 GM DAILY 01/09 1515 AC 01/10 PO 1025 Potassium Chloride 20 MEQ DAILY 01/08 1737 AC 01/12 PO 0930 Senna/Docusate Sodium 1 TAB BID PRN 01/09 1515 AC PO Sodium Chloride 1,000 ML .[id number] 01/11 1515 AC 01/12 IV 1057 Tiotropium [place] 1 PUF 1400 01/09 1400 AC 01/11 INH 1453 Vital Signs & I&O Last 24 Hrs of Vitals and I&O: Vital Signs Date Time Temp Pulse Resp B/P B/P Pulse O2 O2 Flow FiO2 Mean Ox Delivery Rate 01/12 1351 97.9 65 18 116/66 93 Nasal Cannula 01/12 930 116/64 01/12 930 116/64 01/12 0630 97.7 63 18 11664 94 Nasal Cannula 01/11 2300 Nasal 2.0L Cannula 01/11 2255 97.8 66 18 138/68 93 Nasal 1.0L Cannula 01/11 1434 98.6 67 18 118/70 93 Nasal Cannula Intake & Output 01/12 1600 01/12 0800 01/12 0000 Intake Total 480 300 Output Total 500 450 Balance -20 -150 Intake, IV 480 Intake, Oral 300 Output, Urine 500 450 Patient 235 lb Weight Weight Bed scale Measurement Method Impression/Plan Impression/Plan Impression/Plan: Gen: The patient is in no acute distress HEENT: Normal nose, ears, and oropharynx. Pupils equal bilaterally. Conjunctiva normal. Neck: Supple with no JVD, no masses, and no thyromegaly Lungs: Scattered rales with normal respiratory effort Heart: RRR, S1, S2, mechanical mitral valve sounds. 2+ peripheral edema, 2+ pulses in the lower extremities bilaterally Abdomen: Soft, nontender, no masses. No hepatomegaly. No splenomegaly Extremities: No clubbing or cyanosis. Normal muscle strength in the upper and lower extremities Skin: Normal skin turgor with no skin ulcers or lesions noted. Neuro: Cranial nerves intact. Sensation intact Psych: Alert and oriented x 3 with appropriate affect This is a 77-year-old lady with history of hypertension, coronary artery disease with previous CABG and mitral valve replacement for a ruptured papillary muscle emergently done in 2004, now on anticoagulation with warfarin, hypothyroidism on appropriate supplementation, previous recurrent bowel obstruction with mesh surgery for paraumbilical hernia, diverticulitis of the sigmoid history, Issues include * Acute on chronic diastolic heart failure with mild pulmonary edema which shortness of breath improving after Lasix * Vaginal bleeding vs other discharge per vagina vs hematuria, eval pending * Sig abnormal Chest ct needs eval- report pending, would need ebus and bx * SIg abnormal ct abd with lung nodules and lyphadenopathy highly suspicious for lung malingncy (pt has remote history of smoking0 * Coronary artery disease with previous CABG and mitral valve replacement with a metallic valve for Ruptured papillary muscle in 2004 with previous echoes suggestive of normal ejection fraction with diastolic heart. Patient is on appropriate anticoagulation with INR high wih no acs * Morbid obesity with signs and symptoms suggestive of upper airway resistance syndrome patient is not keen on sleep study * Significant pulmonary hypertension related to previous mitral valve disease with probable diastolic heart disease * Mild asthmatic bronchitis with mild COPD with previous history of smoking up until 2004 * Hypothyroidism on appropriate supplementation * GERD on appropriate medication * Hyperlipidemia, hypertension, allergic rhinitis relatively stable RECOMMENDATION Continue current meds IVF with normal saline at 60 cc for 6 hrs and dc this pm at 6 Hold warfarin today WIll consider starting on lovenox in anticipation of biopsy of the chest ct findings Daily INR and keep inr more than 2.5-3.5, can reduce warfarin dose today Cont spirva and other inhalers Continue loratadine and montelukast Continue her outpatient blood pressure 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
--- NOTE | 2018-01-12 16:02 | CT SCAN REPORT ---
EXAMINATION: CT CHEST WITH CONTRAST CLINICAL INFORMATION: Prior study showed right lung base masses. Evaluate lung masses, perihilar lymphadenopathy. COMPARISON: CT scan of the abdomen dated 01/11/2018. CT scan of the chest dated 01/28/2009 and 11/13/2008. TECHNIQUE: Multidetector volumetric CT imaging of the chest was obtained after the administration of 94 mL of intravenous Optiray 320. Sagittal and coronal reformations were obtained. DLP: 685.75 mGy-cm. FINDINGS: LUNGS: There is moderate centrilobular emphysema and mild paraseptal emphysema seen. Several scattered tiny 2 to 3 mm bilateral pulmonary nodules are seen, several of which appear dense and may represent calcified granulomas. In addition, in the right lower lobe posterior basal segment, there is a 2.3 x 1.3 cm pleural-based masslike opacity seen with spiculated margins. Small nodular densities are also seen in the posterior basal right lower lobe measuring up to 5 mm (series 4, image 257). There is also a 1.6 x 1.4 cm spiculated mass in the right lower lobe anteriorly. These findings are new when compared to the 01/28/2009 CT scan of the chest and correspond to the finding seen on recent CT scan of the abdomen. No effusion or pneumothorax. Central airways patent. PLEURA: There is no pleural effusion. No pleural mass or thickening. LYMPHATIC STRUCTURES: There are markedly abnormal enlarged lymph nodes seen in the mediastinum, including a 4.4 x 4.4 cm right paratracheal lymph node, which extends to the precarinal region; a subcarinal lymph node, which measures at least 4.2 x 3.7 cm; a right hilar lymph node, which measures approximately 2.3 x 2.5 cm. There is abnormal soft tissue thickening surrounding the right and to a lesser extent the proximal left mainstem bronchus, consistent with adenopathy. In the left hilum, a small 1 cm lymph node is seen. Other borderline enlarged lymph nodes are also seen in the prevascular and aortopulmonary window regions. No axillary adenopathy is noted. In the upper abdomen, abnormal lymph node is seen in the gastrohepatic ligament, measuring 1.4 cm in short axis and 2.3 cm in long axis (series 2, image 47), new from prior CT scan of the chest. Other smaller periportal lymph nodes are also partially included. CARDIOVASCULAR STRUCTURES: Aortic is mildly ectatic with moderate atherosclerotic calcification seen. The heart is mildly enlarged with four-chamber enlargement seen, though primarily affecting the left heart chambers. The patient is status post median sternotomy and mitral valve replacement. Moderate atherosclerotic calcifications of the coronary arteries is seen. No pericardial effusion. The main, right and left pulmonary arteries are enlarged with the main pulmonary artery measuring 4.0 cm in maximal diameter as compared to the ascending aorta at the same level, which measures 3.7 cm. On the 01/28/2009 exam, the main pulmonary artery measures 3.6 cm in diameter. Findings are consistent with interval development of pulmonary arterial hypertension. UPPER ABDOMEN: Small accessory splenule is seen in the splenic hilar region. Postcholecystectomy jam are seen in place. Noncontrast appearance of solid organs in the upper abdomen otherwise unremarkable to the extent included. OSSEOUS STRUCTURES: There is severe vertebral spondylosis seen throughout the mid and lower thoracic spine with moderate to severe degenerative disc disease. Median sternotomy wires are seen in place. There is a convex left thoracic scoliosis. No suspicious bone findings. IMPRESSION: 1. Moderate emphysema with 2 large masses and a few smaller subcentimeter sized nodules in the right lower lobe are seen, raising the suspicion of a malignant etiology. Associated extensive mediastinal and right hilar adenopathy and smaller left hilar adenopathy is seen. There is also abnormal adenopathy in the upper abdomen in the gastrohepatic ligament. 2. Other scattered tiny bilateral pulmonary nodules are seen, some of which appear calcified, suggesting scattered granulomas. 3. Enlarged pulmonary arteries, suspicious for pulmonary arterial hypertension. 4. Four-chamber enlargement of the heart with changes related to prior mitral valve replacement. 5. Moderate coronary artery calcifications. 6. Status post cholecystectomy.
[2018-01-12 23:00] VITALS: BP 126/88
[2018-01-13 06:38] VITALS: BP 98/58
--- NOTE | 2018-01-13 06:42 | PN- Housestaff ---
Subjective Follow-up For: Vaginal bleeding Hx. metallic mitral valve replacement on Coumadin Subjective: Patient seen and examined this a.m. She is on 1 L of oxygen by nasal cannula. She was comfortable, sitting on the bed. Vital signs reviewed, stable, afebrile. Patient states she passed a large clot yesterday night, stating her vaginal bleeding feels the same. She offered no other acute complaints. She denies chest pain, lightheadedness, dizziness, chest pain, palpitations. Review of Systems Constitutional: Reports: see HPI. EENTM: Reports: see HPI. Objective Last 24 Hrs of Vital Signs/I&O Vital Signs Date Time Temp Pulse Resp B/P B/P Pulse O2 O2 Flow FiO2 Mean Ox Delivery Rate 01/13 0638 98.5 56 20 98/58 92 Nasal Cannula 01/12 2300 97.7 67 18 126/88 92 01/12 2032 92 Nasal 1.0L Cannula 01/12 1351 97.9 65 18 116/66 93 Nasal Cannula 01/12 0930 116/64 01/12 0930 116/64 Intake & Output 01/13 1600 01/13 0800 01/13 0000 Intake Total 240 Output Total 150 Balance -150 240 Intake, Oral 240 Output, Urine 150 Patient 233 lb Weight Physical Exam General Appearance: Alert, Oriented X3, Cooperative, No Acute Distress Cardiovascular: Regular Rate, Normal S1, Normal S2, No Murmurs Lungs: Clear to Auscultation Abdomen: Normal Bowel Sounds, Soft, No Tenderness Neurological: Normal Speech Extremities: No Edema Current Medications: Current Medications Sig/Slade Start time Last Medication Dose Route Stop Time Status Admin Albuterol Sulfate 2 PUF Q4-6 PRN PRN 01/08 1745 AC INH Atorvastatin Calcium 40 MG QPM 01/08 2315 AC 01/12 PO 2010 Budesonide/ 2 PUF BID 01/10 2100 AC Formoterol Fumarate INH Diphenhydramine HCl 25 MG ONCE ONE 01/12 900 DC 01/12 PO 01/12 901 09 Furosemide 60 MG DAILY 01/11 900 AC 01/12 PO 152 Levothyroxine Sodium 0.088 MG DAILY AC 01/09 07 AC 01/13 PO 0651 Loratadine 10 MG DAILY 01/09 900 AC 01/12 PO 929 Losartan Potassium 50 MG DAILY 01/09 900 AC 01/12 PO 929 Methylprednisolone 32 MG ONCE ONE 01/12 900 DC 01/12 PO 01/12 Metoprolol Succinate 50 MG DAILY 01/09 0900 AC 01/12 PO 929 Montelukast Sodium 10 MG QPM 01/09 2100 AC 01/12 PO 2010 Ondansetron HCl 4 MG ONCE ONE 01/12 0900 DC 01/12 PO 01/12 Polyethylene Glycol 17 GM DAILY 01/09 1515 AC 01/10 PO 1025 Potassium Chloride 20 MEQ ONCE ONE 01/13 830 DC PO 01/13 831 Potassium Chloride 20 MEQ DAILY 01/08 1737 AC 01/12 PO 929 Senna/Docusate Sodium 1 TAB BID PRN 01/09 1515 AC PO Sodium Chloride 1,000 ML .[id number] 01/11 1515 DC 01/12 IV 01/12 1800 1057 Tiotropium [place] 1 PUF 1400 01/09 1400 AC 01/12 INH 1522 Last 24 Hrs of Lab/[place] Results Last 24 Hrs of Labs/Mics: Laboratory Tests 01/13/18 0820: PT Pending, INR Pending 01/13/18 0619: Anion Gap 6, Estimated GFR > 60, BUN/Creatinine Ratio 27.5 H, CBC w Diff NO MAN DIFF REQ, RBC 4.85, MCV 87.1, MCH 27.9, MCHC 32.0 L, RDW 15.8 H, MPV 9.8, Gran % 66.4, Lymphocytes % 24.7, Monocytes % 8.0, Eosinophils % 0.5, Basophils % 0.4, Absolute Granulocytes 5.4, Absolute Lymphocytes 2.0, Absolute Monocytes 0.7 H, Absolute Eosinophils 0, Absolute Basophils 0 Assessment/Plan Assessment: 77 y/o F with PMH HTN, HLD, pulm HTN, former smoker, 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 She was admitted to the telemetry floor for continued management of the following issues: PROBLEM LIST 1. Vaginal bleeding 2. H/o metallic mitral valve replacement #Vaginal Bleeding Admitted to telemetry for monitoring of vitals Trops negative. Monitoring H/H -Stable as of 01/12 Spiriva, Symbicort started 01/10 Will continue the anticoagulation due to history of valvular heart disease and valve replacement Consulted gynecology - patient to follow up as outpatient for possible endometrial biopsy. Consulted urology - Ddx is broad at this point. Will send for Ucx; no need for cystoscopy at this point due to stable H/H. CT ABD/Pelvis with oral/rectal/IV contrast yesterday; she was premedicated with solumedrol, zofran, diphenhydramine. Showed R lung masses concerning for malignancy - CT chest with IV contrast showed 2 large masses and a few smaller subcentimeter, sized nodules in the right lower lobe - this is suggestive of malignancy. She was informed yesterday of these findings by Dr. Smith. #H/o metallic mitral valve replacement PT/INR to be followed up daily to dose warfarin accordingly. Target 2.5-3.5. Code Status: Full Code Heart Healthy Diet Problem List: 1. Vaginal bleeding 2. Shortness of breath Pain Ratin Pain Location: n/a Pain Goal: Remain pain free Pain Plan: as indicated Tomorrow's Labs & Rationales: n/a
[2018-01-13 07:59] LABS: ABSOLUTE BASOPHIL COUNT 0 /CUMM (0.0-0.2); ABSOLUTE EOSINOPHIL COUNT 0 /CUMM (0.0-0.7); ABSOLUTE GRANULOCYTE CT 5.4 /CUMM (1.4-6.5); ABSOLUTE MONOCYTE COUNT 0.7 /CUMM (0.10-0.60); BASOPHIL % 0.4 % (0.0-2.0); EOSINOPHIL % 0.5 % (0-5); GRANULOCYTE % 66.4 % (42.2-75.2); HEMATOCRIT 42.3 % (37-47); MEAN CORPUSCULAR HGB 27.9 PG (27.0-31.0); MEAN CORPUSCULAR VOLUME 87.1 FL (81.0-99.0); MEAN PLATELET VOLUME 9.8 FL (7.4-10.4); PLATELET COUNT 199 /CUMM (130-400); RBC DISTRIBUTION WIDTH 15.8 % (11.5-14.5); RED BLOOD CELL CT 4.85 /CUMM (4.20-5.40); WHITE BLOOD CELL COUNT 8.1 /CUMM (4.8-10.8)
[2018-01-13 09:12] VITALS: BP 140/80
[2018-01-13 10:11] LABS: PT 37.7 SEC (9.4-12.5)
--- NOTE | 2018-01-13 12:43 | PN- Pulmonary ---
Subjective HPI/Critical Care Issues: STIll has vaginal bleeding CT Noted Objective Current Medications: Current Medications Sig/Slade Start time Last Medication Dose Route Stop Time Status Admin Albuterol Sulfate 2 PUF Q4-6 PRN PRN 01/08 1745 AC INH Atorvastatin Calcium 40 MG QPM 01/08 2315 AC 01/12 PO 2011 Budesonide/ 2 PUF BID 01/10 2100 AC Formoterol Fumarate INH Furosemide 60 MG DAILY 01/11 0900 AC 01/13 PO 0909 Levothyroxine Sodium 0.088 MG DAILY AC 01/09 0700 AC 01/13 PO 0651 Loratadine 10 MG DAILY 01/09 0900 AC 01/13 PO 0909 Losartan Potassium 50 MG DAILY 01/09 0900 AC 01/13 PO 09 Metoprolol Succinate 50 MG DAILY 01/09 0900 AC 01/13 PO 0912 Montelukast Sodium 10 MG QPM 01/09 2100 AC 01/12 PO 2010 Polyethylene Glycol 17 GM DAILY 01/09 1515 AC 01/10 PO 1025 Potassium Chloride 20 MEQ ONCE ONE 01/13 0830 DC 01/13 PO 01/13 0831 0909 Potassium Chloride 20 MEQ DAILY 01/08 1737 AC 01/13 PO 0908 Senna/Docusate Sodium 1 TAB BID PRN 01/09 1515 AC PO Sodium Chloride 1,000 ML .[id number] 01/11 1515 DC 01/12 IV 01/12 1800 1057 Tiotropium [place] 1 PUF 1400 01/09 1400 AC 01/12 INH 1522 Vital Signs & I&O Last 24 Hrs of Vitals and I&O: Vital Signs Date Time Temp Pulse Resp B/P B/P Pulse O2 O2 Flow FiO2 Mean Ox Delivery Rate 01/13 09 60 140/80 01/13 0912 60 140/80 01/13 0638 98.5 56 20 98/58 92 Nasal Cannula 01/12 2300 97.7 67 18 126/88 92 01/13 2032 92 Nasal 1.0L Cannula 01/12 1351 97.9 65 18 116/66 93 Nasal Cannula Intake & Output 01/13 1600 01/13 0800 01/13 0000 Intake Total 240 Output Total 150 Balance -150 240 Intake, Oral 240 Output, Urine 150 Patient 233 lb Weight Impression/Plan Impression/Plan Impression/Plan: CT chest IMPRESSION: 1. Moderate emphysema with 2 large masses and a few smaller subcentimeter sized nodules in the right lower lobe are seen, raising the suspicion of a malignant etiology. Associated extensive mediastinal and right hilar adenopathy and smaller left hilar adenopathy is seen. There is also abnormal adenopathy in the upper abdomen in the gastrohepatic ligament. 2. Other scattered tiny bilateral pulmonary nodules are seen, some of which appear calcified, suggesting scattered granulomas. 3. Enlarged pulmonary arteries, suspicious for pulmonary arterial hypertension. 4. Four-chamber enlargement of the heart with changes related to prior mitral valve replacement. 5. Moderate coronary artery calcifications. 6. Status post cholecystectomy. DICTATED BY: Helga Hart MD. DATE/TIME DICTATED:01/12/181509 Gen: The patient is in no acute distress HEENT: Normal nose, ears, and oropharynx. Pupils equal bilaterally. Conjunctiva normal. Neck: Supple with no JVD, no masses, and no thyromegaly Lungs: Scattered rales with normal respiratory effort Heart: RRR, S1, S2, mechanical mitral valve sounds. 2+ peripheral edema, 2+ pulses in the lower extremities bilaterally Abdomen: Soft, nontender, no masses. No hepatomegaly. No splenomegaly Extremities: No clubbing or cyanosis. Normal muscle strength in the upper and lower extremities Skin: Normal skin turgor with no skin ulcers or lesions noted. Neuro: Cranial nerves intact. Sensation intact Psych: Alert and oriented x 3 with appropriate affect This is a 77-year-old lady with history of hypertension, coronary artery disease with previous CABG and mitral valve replacement for a ruptured papillary muscle emergently done in 2004, now on anticoagulation with warfarin, hypothyroidism on appropriate supplementation, previous recurrent bowel obstruction with mesh surgery for paraumbilical hernia, diverticulitis of the sigmoid history, Issues include * Acute on chronic diastolic heart failure with mild pulmonary edema which shortness of breath improving after Lasix * Vaginal bleeding * Sig abnormal Chest ct needs eval- * SIg abnormal ct abd with lung nodules and lyphadenopathy highly suspicious for lung malingncy (pt has remote history of smoking0 * Coronary artery disease with previous CABG and mitral valve replacement with a metallic valve for Ruptured papillary muscle in 2004 with previous echoes suggestive of normal ejection fraction with diastolic heart. Patient is on appropriate anticoagulation with INR high wih no acs * Morbid obesity with signs and symptoms suggestive of upper airway resistance syndrome patient is not keen on sleep study * Significant pulmonary hypertension related to previous mitral valve disease with probable diastolic heart disease * Mild asthmatic bronchitis with mild COPD with previous history of smoking up until 2004 * Hypothyroidism on appropriate supplementation * GERD on appropriate medication * Hyperlipidemia, hypertension, allergic rhinitis relatively stable RECOMMENDATION Continue current med dc warfarin for now Will start lovenox 100 mg q12 hrs starting tommorow evening DC today if obgyn can see her (Please call and ask them to eval) Cont spirva and other inhalers Continue loratadine and montelukast CONT all meds as is DC today PT would need out pt eval from bronch (I will arrange) and needs obstetrics and gynecology professor eval nhi Discussed with family in detail
[2018-01-13] MEDS ORDERED: LOVENOX40 MG/0.1 SC ×3 (13:12→15:27)
--- NOTE | 2018-01-13 18:11 | PN- Cardiology ---
Subjective Subjective: The patient continues to complain of vaginal bleeding and hematuria. She is feeling well from a cardiac standpoint. No chest pain. No shortness of breath. No palpitations. No diaphoresis. Objective Vital Signs and I&Os Vital Signs Date Time Temp Pulse Resp B/P B/P Pulse O2 O2 Flow FiO2 Mean Ox Delivery Rate 01/14 912 60 140/80 01/13 0912 60 140/80 01/13 0800 92 Room Air Room Air 01/13 0638 98.5 56 20 98/58 92 Nasal Cannula 01/12 2300 97.7 67 18 126/88 92 01/13 2032 92 Nasal 1.0L Cannula Intake & Output 01/13 1600 01/13 0800 01/13 0000 01/12 1600 01/12 0801/12 0000 Intake Total 240 1080 480 300 Output Total 150 500 450 Balance -945 137 2100 -20 -150 Intake, IV 480 480 Intake, Oral 240 600 300 Output, Urine 150 500 450 Patient 233 lb 235 lb Weight Weight Bed scale Measurement Method Physical Exam: Gen: The patient is in no acute distress HEENT: Normal nose, ears, and oropharynx. Pupils equal bilaterally. Conjunctiva normal. Neck: Supple with no JVD, no masses, and no thyromegaly Lungs: Scattered rales with normal respiratory effort Heart: RRR, S1, S2, mechanical mitral valve sounds. 2+ peripheral edema, 2+ pulses in the lower extremities bilaterally Abdomen: Soft, nontender, no masses. No hepatomegaly. No splenomegaly Extremities: No clubbing or cyanosis. Normal muscle strength in the upper and lower extremities Skin: Normal skin turgor with no skin ulcers or lesions Current Medications: Current Medications Sig/Slade Start time Last Medication Dose Route Stop Time Status Admin Albuterol Sulfate 2 PUF Q4-6 PRN PRN 01/08 1745 DCD INH Atorvastatin Calcium 40 MG QPM 01/08 2315 DCD 01/12 PO 2010 Budesonide/ 2 PUF BID 01/10 2100 DCD Formoterol Fumarate INH Furosemide 60 MG DAILY 01/11 900 DCD 01/13 PO 09 Levothyroxine Sodium 0.088 MG DAILY AC 01/09 07 DCD 01/13 PO 0651 Loratadine 10 MG DAILY 01/09 900 DCD 01/13 PO 09 Losartan Potassium 50 MG DAILY 01/09 900 DCD 01/13 PO 0912 Metoprolol Succinate 50 MG DAILY 01/09 0900 DCD 01/13 PO 911 Montelukast Sodium 10 MG QPM 01/09 2100 DCD 01/12 PO 2010 Polyethylene Glycol 17 GM DAILY 01/09 1515 DCD 01/10 PO 1025 Potassium Chloride 20 MEQ ONCE ONE 01/13 0830 DC 01/13 PO 01/13 0831 0909 Potassium Chloride 20 MEQ DAILY 01/08 1737 DCD 01/13 PO 0908 Senna/Docusate Sodium 1 TAB BID PRN 01/09 1515 DCD PO Tiotropium [place] 1 PUF 1400 01/09 1400 DCD 01/13 INH 1442 Results Last 48 Hrs of Labs/Mics: Laboratory Tests 01/13/18 0820: PT 37.7 H, INR 3.42 H 01/13/18 0619: Anion Gap 6, Estimated GFR > 60, BUN/Creatinine Ratio 27.5 H, CBC w Diff NO MAN DIFF REQ, RBC 4.85, MCV 87.1, MCH 27.9, MCHC 32.0 L, RDW 15.8 H, MPV 9.8, Gran % 66.4, Lymphocytes % 24.7, Monocytes % 8.0, Eosinophils % 0.5, Basophils % 0.4, Absolute Granulocytes 5.4, Absolute Lymphocytes 2.0, Absolute Monocytes 0.7 H, Absolute Eosinophils 0, Absolute Basophils 0 01/12/18 0634: Anion Gap 9, Estimated GFR > 60, BUN/Creatinine Ratio 32.9 H, PT 47.7 *H, INR 4.31 *H, CBC w Diff NO MAN DIFF REQ, RBC 4.87, MCV 86.4, MCH 28.0, MCHC 32.4 L, RDW 16.0 H, MPV 9.4, Gran % 83.7 H, Lymphocytes % 12.5 L, Monocytes % 3.6, Eosinophils % 0, Basophils % 0.2, Absolute Granulocytes 6.7 H, Absolute Lymphocytes 1.0 L, Absolute Monocytes 0.3, Absolute Eosinophils 0, Absolute Basophils 0 Microbiology 01/11 1925 URINE ROUT: Urine Culture - COMP Assessment/Plan Assessment/Plan Assessment: 1. Mechanical mitral valve 2. Vaginal bleeding, with stable hemoglobin and hematocrit. INR therapeutic 3. Acute on chronic HFpEF, improved Plan: * Continue p.o. Lasix * Dose warfarin for INR 2.5-3.5 * Echocardiogram pending * Continue cardiac medications * Evaluation of vaginal bleeding and hematuria as per [employer] and urology Continue telemetry? No Continue telemetry? No
--- NOTE | 2018-01-13 18:21 | Discharge Summary ---
Hospital Course Allergies: Coded Allergies: codeine (Severe, RESPIRATORY DISTRESS, HALLUCINATIONS 07/14/15) oxycodone (SHORTNESS OF BREATH 07/14/15) Iodinated Contrast- Oral and IV Dye (Iodinated Contrast Media - IV Dye) (NAUSEA, DIZZINESS 07/14/15) morphine (VOMITING 07/14/15) Uncoded Allergies: FRESH FROZEN PLASMA (UNKNOWN 07/14/15) Discharge Instructions Medications at Discharge Discharge Medications: Stop taking the following medications: Warfarin Sodium (Coumadin) 4 MG TABLET ORAL EVERY WEDNESDAY Warfarin Sodium (Coumadin) 3 MG TABLET ORAL SUTUETHUR Continue taking these medications: Levothyroxine Sodium (Levothyroxine Sodium) 88 MCG TABLET 1 Tablet ORAL DAILY Qty = 90 Comments: Last Taken: 01/13/18 Time: 7:00 AM Fluticasone Propionate (Flovent Hfa) 110 MCG/ACTUATION AER.W.ADAP 2 Puff Inhale through mouth TWICE DAILY Qty = 12 Comments: NOT GIVEN Metoprolol Succinate (Metoprolol Succinate) 50 MG TAB.ER.24H 1 Tablet ORAL DAILY Qty = 90 Comments: Last Taken: 01/13/18 Time: 9:00 AM Valsartan (Valsartan) 160 MG TABLET 1 Tablet ORAL DAILY Qty = 90 Comments: [facility] Last Taken: 01/13/18 Time: 9:00 AM Aspirin (Aspirin*) 81 MG TAB.CHEW 1 Tablet ORAL DAILY Comments: NOT GIVEN Atorvastatin Calcium (Atorvastatin Calcium) 40 MG TABLET 1 Tablet ORAL DAILY Qty = 90 Comments: Last Taken: 01/12/18 Time: 8:00 PM Montelukast Sodium (Singulair) 10 MG TABLET 1 Tablet ORAL DAILY Comments: Last Taken: 01/12/17 Time: 8:00 PM Albuterol Sulfate (Proair Hfa) 90 MCG HFA.AER.AD 2 Puff Inhale through mouth EVERY 4-6 HOURS NEEDED as needed for SHORTNESS OF BREATH Qty = 1 Comments: NOT GIVEN Loratadine (Loratadine) 10 MG TABLET 10 Milligram ORAL DAILY Qty = 30 Instructions: . Comments: Last Taken: 01/13/18 Time: 9:00 AM Furosemide (Lasix) 40 MG TABLET 40 Milligram ORAL DAILY Qty = 60 Instructions: Take 1 tablet twice a day from 10/13-10/18/16, then take 1 talet daily . Comments: Take 1 tab twice a day from 10/13/16 - 10/18/16 then take 1 tablet daily. Last Taken: 01/13/18 Time: 9:00 AM Potassium Chloride (Potassium Chloride) 20 MEQ TAB.ER.PRT 1 Tablet ORAL DAILY Qty = 30 Comments: Last Taken: 01/13/18 Time: 9:00 AM Start taking the following new medications: Enoxaparin Sodium (Lovenox) 40 MG/0.4 ML SYRINGE 100 Milligram SC TWICE DAILY Qty = 30 No Refills Instructions: Please start from tomorrow evening 01/14/2018. Comments: NOT GIVEN
== END 2018-01-13 15:10 | DRG 292 ==
LOC: ERH 11:00 → 1NO 16:07 → ERHI 16:07 → 1NO 16:07 → ENRESERV 16:20 → ENTRNSPT 16:54 → EDTRNSPTSTS 17:08 → 1NO 17:41 → CMPTRNSPT 17:54 → 1NO 01-09 12:49 → ENPENDDIS 01-13 13:29 → ENTRNSPT 01-13 14:43 → CMPTRNSPT 01-13 15:09 → 1NO 01-13 15:10
PROVIDERS: Internal Medicine; Internal Medicine Adolescent Medicine; Physician Assistant Medical; Student in an Organized Health Care Education/Training Program
DX: I11.0 Hypertensive heart disease with heart failure (principal); Z68.41 Body mass index [BMI] 40.0-44.9, adult; I50.33 Acute on chronic diastolic (congestive) heart failure; Z79.01 Long term (current) use of anticoagulants; N93.9 Abnormal uterine and vaginal bleeding, unspecified; Z95.2 Presence of prosthetic heart valve; E03.9 Hypothyroidism, unspecified; I25.10 Atherosclerotic heart disease of native coronary artery without angina pectoris; I25.2 Old myocardial infarction; K21.9 Gastro-esophageal reflux disease without esophagitis; J44.9 Chronic obstructive pulmonary disease, unspecified; R09.02 Hypoxemia; Z95.1 Presence of aortocoronary bypass graft; E66.01 Morbid (severe) obesity due to excess calories; I27.20 Pulmonary hypertension, unspecified; R31.0 Gross hematuria; R91.8 Other nonspecific abnormal finding of lung field; R59.0 Localized enlarged lymph nodes; E78.5 Hyperlipidemia, unspecified; Z87.891 Personal history of nicotine dependence; J45.909 Unspecified asthma, uncomplicated; Z88.5 Allergy status to narcotic agent; Z88.9 Allergy status to unspecified drugs, medicaments and biological substances; Z91.041 Radiographic dye allergy status; Z90.49 Acquired absence of other specified parts of digestive tract
CPT/HCPCS: 1NSP; 36415; 36592; 71045; 74177; 81001; 82436; 87086; 93005; 93010; 93306; 96374; J1940; J2930; J3101; J3490